=== PATIENT | female | born 1945 | race African-American/Black ===

== ENCOUNTER → 2017-01-07 | Outpatient (CLI) | payer OTHER, MEDICAID ==
[2013-08-11 16:59] VITALS: BP 152/75
[2017-01-07 10:31] LABS: BASOPHILS # (AUTO) 0.1 X10^3/uL (0.0-0.1); BASOPHILS % (AUTO) 1.2 % (0.2-1.0); EOSINOPHILS # (AUTO) 0.2 x10^3/uL (0.0-0.2); HEMATOCRIT 41.9 % (36.0-47.0); HEMOGLOBIN 14.2 g/dL (12.0-16.0); LYMPHOCYTES # (AUTO) 2.3 X10^3/uL (1.3-2.9); LYMPHOCYTES % (AUTO) 40.1 % (21.0-51.0); MEAN CORPUSCULAR HGB CONC 33.8 g/dL (33.0-35.0); MEAN CORPUSCULAR VOLUME 88.6 fL (80.0-100.0); MEAN PLATELET VOLUME 8.4 fL (7.4-11.0); MONOCYTES # (AUTO) 0.6 x10^3/uL (0.3-0.8); MONOCYTES % (AUTO) 9.7 % (0.0-13.0); NEUTROPHILS # (AUTO) 2.6 x10^3/uL (2.2-4.8); PLATELET COUNT 209 X10^3/uL (150.0-450.0); RED BLOOD COUNT 4.73 X10^6/uL (3.5-5.4); RED CELL DISTRIBUTION WIDTH 13.2 % (11.6-16.5); WHITE BLOOD COUNT 5.8 X10^3/uL (3.6-10.0)
[2017-01-07 10:40] LABS: ALANINE AMINOTRANSFERASE 24 Units/L (12-78); ALBUMIN 3.5 g/dL (3.4-5.0); ALKALINE PHOSPHATASE 98 Units/L (46-116); ASPARTATE AMINO TRANSFERASE 14 Units/L (15-37); BLOOD UREA NITROGEN 22 mg/dL (7-18); CALCIUM 8.2 mg/dL (8.5-10.1); CARBON DIOXIDE 23.4 mmol/L (21-32); CHLORIDE 109 mmol/L (98-107); CHOL/HDL RATIO 1.9 (0.0-5.0); CHOLESTEROL 111 mg/dL (0-200); COR NA(FOR HYPERGLY) 146 mmol/L (136-145); CREATININE 1.72 mg/dL (0.55-1.02); GLUCOSE 231 mg/dL (65-99); HDL CHOLESTEROL 57 mg/dL (40-60); SODIUM 143 mmol/L (136-145); TOTAL PROTEIN 7.6 g/dL (6.4-8.2); TRIGLYCERIDES 71 mg/dL (0-150); eGFR BLACK RACES 38 (>60); eGFR NON BLACK RACES 31 (>60)
[2017-01-07 10:41] LABS: CREATININE,URINE 72.06 mg/dL (29-226); MICROALBUMIN,URINE 9.4 mg/L
[2017-01-07 10:42] LABS: HEMOGLOBIN A1C 8.1 % (4.5-6.2)
== END ==
LOC: LAB 09:55
PROVIDERS: ATTEND Nurse Practitioner Family
DX: E78.4 Other hyperlipidemia (principal); I10 Essential (primary) hypertension; E11.65 Type 2 diabetes mellitus with hyperglycemia; E55.9 Vitamin D deficiency, unspecified
CPT/HCPCS: 36415; 80053; 80061; 82043; 82306; 83036; 85025

== ENCOUNTER → 2017-01-10 | Outpatient (CLI) | payer OTHER, MEDICAID ==
[2013-08-11 16:59] VITALS: BP 152/75
--- NOTE | 2017-01-11 07:55 | VAS ---
HISTORY: Lower extremity spasms Study: Bilateral lower extremity arterial Doppler and ABIs Comparison: None Technique: Multiple grayscale sonographic images were obtained. Color duplex Doppler evaluation was performed. Findings: Bilaterally flow was identified from the common femoral through the dorsalis pedis arteries. Bilater ally waveforms were triphasic or biphasic throughout. There are no velocity spikes to suggest a foca l greater than 50% stenosis. CHRISTIAN on the right 1.0. CHRISTIAN on the left 0.93. IMPRESSION: No sonographic evidence for significant atherosclerotic obstructive disease in either lower extremit y Normal ABIs bilaterally Reported By:
== END ==
LOC: RAD 13:45
PROVIDERS: ATTEND Nurse Practitioner Family
DX: E55.9 Vitamin D deficiency, unspecified (principal); M62.838 Other muscle spasm; I73.89 Other specified peripheral vascular diseases
CPT/HCPCS: 93923; 95911

== ENCOUNTER → 2017-02-25 | Outpatient (CLI) | payer OTHER, MEDICAID ==
[2013-08-11 16:59] VITALS: BP 152/75
--- NOTE | 2017-02-25 17:12 | MG ---
Examination: Bilateral screening mammogram. Clinical history: Routine screening. Technique: Digital CC and MLO views of both breasts were obtained. Computer aided detection analysis was performed and used during the interpretation. Comparison: 03/28/2010. Findings: The breasts are composed of scattered fibroglandular densities. Benign-appearing calcifications are n oted in the breasts bilaterally. No suspicious mass, area of architectural distortion or suspicious cluster of microcalcifications is noted. Impression: 1. No mammographic evidence of malignancy. BI-RADS category 2-benign findings. Recommend routine annual screening mammogram. Diagnostic CAD was utilized and reviewed. * 0 (ZERO) - ASSESSMENT INCOMPLETE; ADDITIONAL IMAGING IS NEEDED. * 0C - ASSESSMENT INCOMPLETE, NEEDS ADDITIONAL IMAGING EVALUATION AND/OR PRIOR MAMMOGRAMS FOR COMPARI SON. * 1/1 (ONE) - NEGATIVE. * 2/II (TWO) - BENIGN FINDINGS. * 3/III (THREE) - PROBABLY BENIGN FINDING; SHORT INTERVAL FOLLOW-UP SUGGESTED. * 4/IV (FOUR) - SUSPICIOUS ABNORMALITY; BIOPSY SHOULD BE CONSIDERED. * 5/V - HIGHLY SUSPICIOUS OF MALIGNANCY; BIOPSY SHOULD BE PERFORMED. * 6/ - KNOWN BIOPSY PROVEN MALIGNANCY-APPROPRIATE ACTION SHOULD BE TAKEN. A NEGATIVE X-RAY REPORT SHOULD NOT DELAY BIOPSY IF A DOMINANT OR CLINICALLY SUSPICIOUS MASS IS PRESENT; 4 TO 8 PERCENT OF CANCERS ARE NOT IDENTIFIED BY X-RAY. A NEGATIVE REPORT MAY REINFORCE THE CLINICAL IMPRESSION. ADENOSIS AND DENSE BREASTS MAY OBSCURE AN UNDERLYING NEOPLASM. Reported By:
== END ==
LOC: RAD 11:13
PROVIDERS: ATTEND Nurse Practitioner Family
DX: Z12.31 Encounter for screening mammogram for malignant neoplasm of breast (principal)
CPT/HCPCS: 77067

== ENCOUNTER → 2017-09-03 | Outpatient (CLI) | payer OTHER, MEDICAID ==
[2013-08-11 16:59] VITALS: BP 152/75
[2017-09-03 09:28] LABS: BASOPHILS # (AUTO) 0.1 X10^3/uL (0.0-0.1); BASOPHILS % (AUTO) 1.3 % (0.2-1.0); EOSINOPHILS # (AUTO) 0.3 x10^3/uL (0.0-0.2); HEMATOCRIT 43.9 % (36.0-47.0); HEMOGLOBIN 14.8 g/dL (12.0-16.0); LYMPHOCYTES # (AUTO) 2.2 X10^3/uL (1.3-2.9); LYMPHOCYTES % (AUTO) 33.8 % (21.0-51.0); MEAN CORPUSCULAR HEMOGLOBIN 30.3 pg (27.0-34.0); MEAN CORPUSCULAR HGB CONC 33.7 g/dL (33.0-35.0); MEAN CORPUSCULAR VOLUME 89.9 fL (80.0-100.0); MEAN PLATELET VOLUME 8.1 fL (7.4-11.0); MONOCYTES # (AUTO) 0.6 x10^3/uL (0.3-0.8); MONOCYTES % (AUTO) 9.8 % (0.0-13.0); NEUTROPHILS # (AUTO) 3.3 x10^3/uL (2.2-4.8); NEUTROPHILS % (AUTO) 51.1 % (42.0-75.0); PLATELET COUNT 210 X10^3/uL (150.0-450.0); RED BLOOD COUNT 4.88 X10^6/uL (3.5-5.4); RED CELL DISTRIBUTION WIDTH 13.7 % (11.6-16.5); WHITE BLOOD COUNT 6.5 X10^3/uL (3.6-10.0)
[2017-09-03 09:40] LABS: ALANINE AMINOTRANSFERASE 19 Units/L (12-78); ALBUMIN 3.9 g/dL (3.4-5.0); ALKALINE PHOSPHATASE 90 Units/L (46-116); ASPARTATE AMINO TRANSFERASE 13 Units/L (15-37); BLOOD UREA NITROGEN 15 mg/dL (7-18); CALCIUM 8.6 mg/dL (8.5-10.1); CARBON DIOXIDE 25.4 mmol/L (21-32); CHLORIDE 107 mmol/L (98-107); CHOL/HDL RATIO 2.2 (0.0-5.0); CHOLESTEROL 141 mg/dL (0-200); COR NA(FOR HYPERGLY) 144 mmol/L (136-145); CREATININE 1.45 mg/dL (0.55-1.02); HDL CHOLESTEROL 64 mg/dL (40-60); HEMOGLOBIN A1C 7.9 %; SODIUM 143 mmol/L (136-145); TOTAL PROTEIN 8.5 g/dL (6.4-8.2); TRIGLYCERIDES 61 mg/dL (0-150); eGFR BLACK RACES 46 (>60); eGFR NON BLACK RACES 38 (>60)
[2017-09-03 09:45] LABS: CREATININE,URINE 42.92 mg/dL (29-226); MICROALBUMIN,URINE 70.1 mg/L
== END ==
LOC: LAB 09:01
PROVIDERS: ATTEND Nurse Practitioner Family
DX: E78.4 Other hyperlipidemia (principal); E11.9 Type 2 diabetes mellitus without complications; E53.8 Deficiency of other specified B group vitamins; E55.9 Vitamin D deficiency, unspecified
CPT/HCPCS: 36415; 80053; 80061; 82043; 82306; 83036; 85025

== ENCOUNTER 2021-05-30 10:27 | Inpatient (IN) ==
[2021-05-30] MEDS ORDERED: NS 500 ML IV 500 ML IV ONE ×2 (10:35→12:23)
[2021-05-30 10:44] VITALS: BMI 28.3
[2021-05-30] MEDS ORDERED: HALDOL INJ IM ONE (10:45)
--- NOTE | 2021-05-30 10:45 | DR.GENAD ---
HPI Time Seen Time Seen by Provider: 05/30/21 10:34 Complaint/Symptoms Chief Complaint Doctors Comments: 75 y/o female brought in by family for evaluation. Has had mutiple strokes recently, has not been acting right since. Has had decreased PO intake, has been uncooperative with taking her meds, comb ative with the family. Family fears she is dehydrated. Pt aggressive with the nursing staff, slapping at them. Pt tried to bite MD, hit me during exam. No report of fever, cough, vomiting, diarrhea or urinary issues. Family interested in NH placement. COVID-19 Coronavirus risk:travel/contact w/high risk person: No Has patient experienced Coronavirus symptoms: No Nurses notes reviewed Nurses Notes Review: Yes Source History Provided: Family Member PMH PMH Past Medical History: Diabetes and Hypertension Past Surgical History: Yes Family History Family Medical History: Diabetes Mellitus, Cancer, [place] and Hypertension Social History Do you use any recreational Drugs:: No Travel Risk Coronavirus risk:travel/contact w/high risk person: No Has patient experienced Coronavirus symptoms: No ROS Review of Systems Constitutional: Weakness; negative Fever Eyes: negative Discharge ENTM: negative Nose Congestion Respiratoy: No Symptoms Reported Cardiovascular: No Symptoms Reported Gastrointestinal/Abdominal: No Symptoms Reported Genitourinary: No Symptoms Reported Neurological: Weakness Musculoskeletal: No Symptoms Reported Integumentary: No Symptoms Reported Hematologic/Lymphatic: No Symptoms Reported Psychiatric: Other (aggressive, combative) All Other Systems: Reviewed and Negative (ROS obtained thru family) PE Vital Signs Vitals: Pulse Rate 54 Blood Pressure [Right Arm] 184/92 Blood Pressure [Left Arm] 159/72 Blood Pressure [Left Radial 118/68 Artery] Blood Pressure 124/61 O2 Sat by Pulse Oximetry 97 General Limitations: No Limitations General Appearance: Other (somnolent, but easily arousable. + combative. Slapping when touched, yelling out.) Head Head Exam: Normal Inspection Eyes Eye exam: Normal Appearance ENT ENT Exam: Normal Exam Neck Neck Exam: Normal Inspection and Full ROM Chest Chest Inspection: Normal Inspection Respiratory Respiratory Exam: Normal Lung Sounds Bilat; negative Accessory Muscle Use and Respiratory Distress Respiratory Exam: Bilateral: Clear to Auscultation Cardiovascular Cardiovascular Exam: Regular Rate, Normal Rhythm and Normal Heart Sounds Abdominal Exam Abdominal Exam: Normal Inspection and Soft; negative Tenderness Extremities Extremities Exam: Normal Inspection, Full ROM and Other (left arm weaker) Neurologic Neurological Exam: Alert and CN II-XII Intact Psychiatric Psychiatric Exam: Agitated Skin Skin Exam: Warm and Dry MDM Differential Diagnosis Differential Diagnosis: OBS, dementia, electrolyte abnormalities, multii nfarct dementia COURSE Treatment Treatment: 75 y/o female brought in by family due to her aggressive behavior, decreased po intake. Pt has had an altered mental state since suffering recent CVAs. Concerning for possible dehydration. Will not allow RNs to take her BP, start IV. Given Haldol. 5 mg, IM to start. 1248 - RN able to start IV after Haldol, able to give IV ativan, 1 mg, with good effect. 1310 - labs show probable dehydration, with elevated potassium. Glucose elevated, given IV regular insulin, 4 U. Given IV NS bolus. Discussed with Dr Hummel, will admit, will look into NH placement. ROR Labs Reviewed Laboratory Results Reviewed?: Yes Result Diagrams: 05/30/21 12:32 05/30/21 12:32 Laboratory: WBC 7.2 X10^3/uL (3.6-10.0) 05/30/21 12:32 RBC 5.08 X10^6/uL (3.5-5.4) 05/30/21 12:32 Hgb 15.0 g/dL (12.0-16.0) 05/30/21 12:32 Hct 47.2 % (36.0-47.0) H 05/30/21 12:32 MCV 92.9 fL (80.0-100.0) 05/30/21 12:32 MCH 29.6 pg (27.0-34.0) 05/30/21 12:32 MCHC 31.8 g/dL (33.0-35.0) L 05/30/21 12:32 RDW 13.9 % (11.6-16.5) 05/30/21 12:32 Plt Count 223 X10^3/uL (150.0-450.0) 05/30/21 12:32 MPV 8.6 fL (7.4-11.0) 05/30/21 12:32 Neut % (Auto) 75.8 % (42.0-75.0) H 05/30/21 12:32 Lymph % (Auto) 13.9 % (21.0-51.0) L 05/30/21 12:32 [place] % (Auto) 7.4 % (0.0-13.0) 05/30/21 12:32 Eos % (Auto) 1.8 % (0.9-2.9) 05/30/21 12:32 Baso % (Auto) 1.1 % (0.2-1.0) H 05/30/21 12:32 Neut # (Auto) 5.4 x10^3/uL (2.2-4.8) H 05/30/21 12:32 Lymph # (Auto) 1.0 X10^3/uL (1.3-2.9) L 05/30/21 12:32 [place] # (Auto) 0.5 x10^3/uL (0.3-0.8) 05/30/21 12:32 Eos # (Auto) 0.1 x10^3/uL (0.0-0.2) 05/30/21 12:32 Baso # (Auto) 0.1 X10^3/uL (0.0-0.1) 05/30/21 12:32 Absolute Nucleated RBC 0.1 /100WBC 05/30/21 12:32 Sodium 147 mmol/L (136-145) H 05/30/21 12:32 Corrected Sodium 156 mmol/L (136-145) H 05/30/21 12:32 Potassium 6.1 mmol/L (3.5-5.1) H* 05/30/21 12:32 Chloride 111 mmol/L (98-107) H 05/30/21 12:32 Carbon Dioxide 25.6 mmol/L (21-32) 05/30/21 12:32 BUN 34 mg/dL (7-18) H 05/30/21 12:32 Creatinine 2.85 mg/dL (0.55-1.02) H 05/30/21 12:32 Est GFR (MDRD) Af Amer 21 (>60) L 05/30/21 12:32 Est GFR (MDRD) Non-Af 17 (>60) L 05/30/21 12:32 Glucose 460 mg/dL (65-99) H 05/30/21 12:32 Calcium 9.5 mg/dL (8.5-10.1) 05/30/21 12:32 Corrected Calcium TNP 05/30/21 12:32 Total Bilirubin 0.60 mg/dL (0.2-1.0) 05/30/21 12:32 AST 14 Units/L (15-37) L 05/30/21 12:32 ALT 16 Units/L (12-78) 05/30/21 12:32 Alkaline Phosphatase 115 Units/L (46-116) 05/30/21 12:32 Creatine Kinase 155 Units/L (26-192) 05/30/21 12:32 CK-MB (CK-2) 1.2 ng/mL (0-4.0) 05/30/21 12:32 CK/CKMB % Calc 0.8 % (<4) 05/30/21 12:32 Troponin I 0.02 ng/mL (0-1.5) 05/30/21 12:32 Total Protein 7.9 g/dL (6.4-8.2) 05/30/21 12:32 Albumin 3.6 g/dL (3.4-5.0) 05/30/21 12:32 Globulin 4.3 g/dL (2.5-4.5) 05/30/21 12:32 Albumin/Globulin Ratio 0.8 Ratio (1.1-2.1) L 05/30/21 12:32 Lipase 120 Units/L (73-393) 05/30/21 12:32 Specimen Type Random urine 05/30/21 10:47 Urine Color Yellow (YELLOW) 05/30/21 10:47 Urine Appearance Clear (CLEAR) 05/30/21 10:47 Urine pH 5.0 (5.0 - 8.0) 05/30/21 10:47 Ur Specific [place] 1.015 (1.000-1.030) 05/30/21 10:47 Urine Protein 1+ (NEGATIVE) 05/30/21 10:47 Urine Glucose (UA) 4+ (NEGATIVE) 05/30/21 10:47 Urine Ketones Negative (NEGATIVE) 05/30/21 10:47 Urine Occult Blood Negative (NEGATIVE) 05/30/21 10:47 Urine Nitrite Negative (NEGATIVE) 05/30/21 10:47 Urine Bilirubin Negative (NEGATIVE) 05/30/21 10:47 Urine Urobilinogen Normal (NORMAL) 05/30/21 10:47 Ur Leukocyte Esterase 1+ (NEGATIVE) 05/30/21 10:47 Urine RBC 0-2 /HPF (0-3) 05/30/21 10:47 Urine WBC 3-5 /HPF (0-5) 05/30/21 10:47 Ur Squamous Epith Cells Many /HPF (NEGATIVE) 05/30/21 10:47 Amorphous Sediment 2+ /HPF (NEGATIVE) 05/30/21 10:47 Urine Bacteria Negative /HPF (NEGATIVE) 05/30/21 10:47 Ur Culture Indicated? No/not indicated 05/30/21 10:47 XRAY XRAY Interpreted by: Self X-ray Results: CXR - without acute abnormalities Opioid Opioid Risk Tool Age (Tim box if 16-45): No History of Preadolescent Sexual Abuse: No Total: 0 Total Score Risk Category: Low Risk Copyright: Calvin HURTADO predicting aberrant behaviors Diagnosis Discharge Problem: Acute hyperkalemia, Volume depletion Altered mental status Qualifiers: Altered mental status type: unspecified Qualified Code(s): R41.82 - Altered mental status, unspecified
[2021-05-30] MEDS ORDERED: ATIVAN INJ 2 MG VIAL IVP ONE (10:46)
[2021-05-30] MEDS ORDERED: HALDOL INJ ONE (10:50)
[2021-05-30 10:54] LABS: BILIRUBIN,URINE NEGATIVE (NEGATIVE); BLOOD/HEMOGLOBIN,URINE NEGATIVE (NEGATIVE); GLUCOSE, URINE 4+ (NEGATIVE); KETONES,URINE NEGATIVE (NEGATIVE); LEUKOCYTE ESTERASE ,URINE 1+ (NEGATIVE); NITRITES,URINE NEGATIVE (NEGATIVE); PROTEIN,URINE 1+ (NEGATIVE); UROBILINOGEN,URINE NORMAL (NORMAL)
[2021-05-30 10:55] LABS: APPEARANCE,URINE CLEAR (CLEAR); COLOR,URINE YELLOW (YELLOW)
[2021-05-30 11:04] LABS: AMORPHOUS SEDIMENT,UR 2+ /HPF (NEGATIVE); BACTERIA,URINE NEGATIVE /HPF (NEGATIVE); RBC,URINE 0-2 /HPF (0-3); SQUAMOUS EPITHELIAL CELL,UR MANY /HPF (NEGATIVE)
[2021-05-30] MEDS ORDERED: ATIVAN INJ 2 MG VIAL ONE (12:24)
[2021-05-30 12:41] LABS: BASOPHILS # (AUTO) 0.1 X10^3/uL (0.0-0.1); BASOPHILS % (AUTO) 1.1 % (0.2-1.0); EOSINOPHILS # (AUTO) 0.1 x10^3/uL (0.0-0.2); EOSINOPHILS % (AUTO) 1.8 % (0.9-2.9); HEMATOCRIT 47.2 % (36.0-47.0); LYMPHOCYTES % (AUTO) 13.9 % (21.0-51.0); MEAN CORPUSCULAR HEMOGLOBIN 29.6 pg (27.0-34.0); MEAN CORPUSCULAR HGB CONC 31.8 g/dL (33.0-35.0); MEAN CORPUSCULAR VOLUME 92.9 fL (80.0-100.0); MEAN PLATELET VOLUME 8.6 fL (7.4-11.0); MONOCYTES # (AUTO) 0.5 x10^3/uL (0.3-0.8); MONOCYTES % (AUTO) 7.4 % (0.0-13.0); NEUTROPHILS # (AUTO) 5.4 x10^3/uL (2.2-4.8); NEUTROPHILS % (AUTO) 75.8 % (42.0-75.0); PLATELET COUNT 223 X10^3/uL (150.0-450.0); RED BLOOD COUNT 5.08 X10^6/uL (3.5-5.4); RED CELL DISTRIBUTION WIDTH 13.9 % (11.6-16.5); WHITE BLOOD COUNT 7.2 X10^3/uL (3.6-10.0)
[2021-05-30 13:03] LABS: ALANINE AMINOTRANSFERASE 16 Units/L (12-78); ALBUMIN 3.6 g/dL (3.4-5.0); ALKALINE PHOSPHATASE 115 Units/L (46-116); ASPARTATE AMINO TRANSFERASE 14 Units/L (15-37); BLOOD UREA NITROGEN 34 mg/dL (7-18); CALCIUM 9.5 mg/dL (8.5-10.1); CARBON DIOXIDE 25.6 mmol/L (21-32); CHLORIDE 111 mmol/L (98-107); CKMB % 0.8 % (<4); COR NA(FOR HYPERGLY) 156 mmol/L (136-145); CREATINE KINASE 155 Units/L (26-192); CREATINE KINASE MB 1.2 ng/mL (0-4.0); CREATININE 2.85 mg/dL (0.55-1.02); LIPASE 120 Units/L (73-393); SODIUM 147 mmol/L (136-145); TOTAL PROTEIN 7.9 g/dL (6.4-8.2); TROPONIN I 0.02 ng/mL (0-1.5); eGFR NON BLACK RACES 17 (>60)
[2021-05-30] MEDS ORDERED: NovoLIN R (or HumuLIN R) IV ONE (13:09)
[2021-05-30] MEDS ORDERED: NovoLIN R (or HumuLIN R) ONE (13:13)
[2021-05-30] MEDS ORDERED: ULTRAM PO PRN (14:24)
--- NOTE | 2021-05-30 16:16 | RAD ---
HISTORYAMSSTUDYCHEST, 1 VIEWCOMPARISONJune 2019TECHNIQUEChest x-ray single frontal viewFINDINGSThe patient is rotated on the exam. The lungs are equally expanded and clear. Cardiac silhouette is mildly prominent. Accentuation of the thoracic aorta is likely magnified by rotation on the film. The pleural spaces are clear. There is no evidence of free air or pneumothorax. No acute osseous abnormalities of the chest are identified.IMPRESSIONNo acute radiographic abnormalities of the chestElectronically signed by: MANSI CHOW (May 30, 2021 16:15:16)
[2021-05-30] MEDS: NS 1,000 ML IV 1,000 ML IV SCH ×2 (18:26→21:23)
[2021-05-30] MEDS: SNACK - Diabetic Appropriate PO SCH (20:15)
[2021-05-30] MEDS: NORVASC TAB 10 MG PO SCH (20:30)
[2021-05-30] MEDS: ATARAX TAB 25 MG PO SCH (20:30)
[2021-05-30] MEDS: LIPITOR TAB 20 MG PO SCH (20:30)
[2021-05-30] MEDS: NovoLIN R (or HumuLIN R) SUBCUT PRN (21:23)
[2021-05-31] MEDS ORDERED: ATIVAN INJ 2 MG VIAL IVP ONE (03:17)
[2021-05-31] MEDS ORDERED: ATIVAN INJ 2 MG VIAL ONE (03:18)
[2021-05-31] MEDS: NS 1,000 ML IV 1,000 ML IV SCH (05:50)
[2021-05-31] MEDS: NovoLIN R (or HumuLIN R) SUBCUT PRN (05:53)
[2021-05-31 06:22] LABS: BASOPHILS # (AUTO) 0.1 X10^3/uL (0.0-0.1); EOSINOPHILS # (AUTO) 0.2 x10^3/uL (0.0-0.2); EOSINOPHILS % (AUTO) 2.4 % (0.9-2.9); HEMATOCRIT 46.1 % (36.0-47.0); HEMOGLOBIN 14.9 g/dL (12.0-16.0); LYMPHOCYTES # (AUTO) 1.3 X10^3/uL (1.3-2.9); LYMPHOCYTES % (AUTO) 16.2 % (21.0-51.0); MEAN CORPUSCULAR HEMOGLOBIN 29.9 pg (27.0-34.0); MEAN CORPUSCULAR HGB CONC 32.3 g/dL (33.0-35.0); MEAN CORPUSCULAR VOLUME 92.6 fL (80.0-100.0); MEAN PLATELET VOLUME 9.2 fL (7.4-11.0); MONOCYTES # (AUTO) 0.7 x10^3/uL (0.3-0.8); MONOCYTES % (AUTO) 8.6 % (0.0-13.0); NEUTROPHILS # (AUTO) 5.8 x10^3/uL (2.2-4.8); NEUTROPHILS % (AUTO) 71.8 % (42.0-75.0); PLATELET COUNT 184 X10^3/uL (150.0-450.0); RED BLOOD COUNT 4.98 X10^6/uL (3.5-5.4); WHITE BLOOD COUNT 8.1 X10^3/uL (3.6-10.0)
[2021-05-31 06:53] LABS: ALBUMIN 3.2 g/dL (3.4-5.0); CALCIUM 9.2 mg/dL (8.5-10.1); CARBON DIOXIDE 19.8 mmol/L (21-32); COR CA(FOR HYPOALB) 9.8 mg/dL (8.5-10.1); CREATININE 2.43 mg/dL (0.55-1.02); TOTAL PROTEIN 7.3 g/dL (6.4-8.2)
[2021-05-31] MEDS: ATIVAN INJ 2 MG VIAL IVP PRN ×2 (08:57→21:58)
[2021-05-31] MEDS: LOVENOX INJ 30 MG SYR SC SCH (10:00)
[2021-05-31] MEDS: NORVASC TAB 10 MG PO SCH ×2 (12:25→21:56)
[2021-05-31] MEDS: ZEBETA TAB 5 MG PO SCH (12:25)
[2021-05-31] MEDS: MEMANTINE DONEPEZIL PO SCH (12:30)
[2021-05-31] MEDS: [UNRECOGNIZED DRUG - OTHER] PO SCH (12:30)
[2021-05-31] MEDS: NS 1/2 1,000 ML IV 1,000 ML IV SCH ×2 (12:49→17:52)
[2021-05-31] MEDS ORDERED: NS 1/2 1,000 ML IV 1,000 ML IV ONE (17:49)
[2021-05-31] MEDS ORDERED: APRESOLINE INJ 20 MG VIAL IVP PRN (19:45)
--- NOTE | 2021-05-31 19:53 | DR.H&P ---
H&P History & Physical for Day of: H&P Date: 05/31/21 Chief Complaint Chief Complaint: Altered mental status Dehydration Allergies Allergies Allergy/AdvReac Type Severity Reaction Status Date / Time No Known Drug Allergies Allergy Verified 05/30/21 10:41 [NKDA] History of Present Illness History of Present Illness: Pt is a 75 year old female past medical history of CVA, COPD, HTN, DMT2, and Dementia presenting with altered mental status, weakness, and dehydration. Per family, since her previous stroke she has been having a progressive decline in mental status and ability to perform activities of daily living. She has loss of appetite and has poor nutrition along with refusal to take her daily medications for her chronic diseases. Labs/imaging: Wbc 8.1, Hgb 14.9, Plt 184, Na 150, K 5.8, Creatinine 2.85>2.43, Glucose 280, CXR: no acute cardiopulmonary disease, UA negative. Patient with altered mental status was initially confused on admission. She was given IM haldol and IV ativan. She responded well to ativan prn. Will start on IVF 1/ NS@75 ml/h, restart home medications. Order nutrition consult. Discussed with case management after discussion with daughter and family, possible placement into a SNF. Concern at this time is nutrition, will have to consider PEG if patient continues to refuse oral intake of solid and liquid foods, as well as her medications. Will continue to monitor and follow up labs in the morning. Past Medical History Past Medical History: COPD, CVA, Dementia, Diabetes and Hypertension Past Surgical History Surgical History: Hysterectomy Family History Family Medical History: Cancer, [place] and Hypertension Social History Does patient currently use any type of tobacco product: No Have you used tobacco products in the last 12 months: No Type of Tobacco Use: None Does any household member use tobacco: No Alcohol Use: None Drug Use: None Medications Home Medications: No Known Drug Allergies [NKDA] Allergy (Verified 05/30/21 10:41) CONTINUE taking the following medications atorvastatin 20 mg PO HS 05/30/21 [History] bisoprolol fumarate 5 mg PO DAILY 05/30/21 [History] clonidine 0.3 mg TRANSDERMAL WEEKLY 05/30/21 [History] hydralazine 25 mg PO BID 05/30/21 [History] hydroxyzine HCl 25 mg PO HS 05/30/21 [History] insulin lispro protamin-lispro [Humalog Mix 75-25 KwikPen] 30 unit SUBCUT BID 05/30/21 [History] memantine-donepezil [Namzaric] 1 cap PO DAILY 05/30/21 [History] montelukast 10 mg PO HS 05/30/21 [History] Labs Result Diagrams: 05/31/21 05:22 05/31/21 05:22 Labs: Laboratory WBC 8.1 X10^3/uL (3.6-10.0) 05/31/21 05:22 RBC 4.98 X10^6/uL (3.5-5.4) 05/31/21 05:22 Hgb 14.9 g/dL (12.0-16.0) 05/31/21 05:22 Hct 46.1 % (36.0-47.0) 05/31/21 05:22 MCV 92.6 fL (80.0-100.0) 05/31/21 05:22 MCH 29.9 pg (27.0-34.0) 05/31/21 05:22 MCHC 32.3 g/dL (33.0-35.0) L 05/31/21 05:22 RDW 14.0 % (11.6-16.5) 05/31/21 05:22 Plt Count 184 X10^3/uL (150.0-450.0) 05/31/21 05:22 MPV 9.2 fL (7.4-11.0) 05/31/21 05:22 Neut % (Auto) 71.8 % (42.0-75.0) 05/31/21 05:22 Lymph % (Auto) 16.2 % (21.0-51.0) L 05/31/21 05:22 [place] % (Auto) 8.6 % (0.0-13.0) 05/31/21 05:22 Eos % (Auto) 2.4 % (0.9-2.9) 05/31/21 05:22 Baso % (Auto) 1.0 % (0.2-1.0) 05/31/21 05:22 Neut # (Auto) 5.8 x10^3/uL (2.2-4.8) H 05/31/21 05:22 Lymph # (Auto) 1.3 X10^3/uL (1.3-2.9) 05/31/21 05:22 [place] # (Auto) 0.7 x10^3/uL (0.3-0.8) 05/31/21 05:22 Eos # (Auto) 0.2 x10^3/uL (0.0-0.2) 05/31/21 05:22 Baso # (Auto) 0.1 X10^3/uL (0.0-0.1) 05/31/21 05:22 Absolute Nucleated RBC 0.1 /100WBC 05/31/21 05:22 Sodium 150 mmol/L (136-145) H* 05/31/21 05:22 Corrected Sodium 154 mmol/L (136-145) H 05/31/21 05:22 Potassium 5.8 mmol/L (3.5-5.1) H 05/31/21 05:22 Chloride 117 mmol/L (98-107) H* 05/31/21 05:22 Carbon Dioxide 19.8 mmol/L (21-32) L 05/31/21 05:22 BUN 33 mg/dL (7-18) H 05/31/21 05:22 Creatinine 2.43 mg/dL (0.55-1.02) H 05/31/21 05:22 Est GFR (MDRD) Af Amer 25 (>60) L 05/31/21 05:22 Est GFR (MDRD) Non-Af 21 (>60) L 05/31/21 05:22 Glucose 280 mg/dL (65-99) H 05/31/21 05:22 POC Glucose (mg/dL) 269 mg/dL (65-99) H 05/31/21 05:45 Calcium 9.2 mg/dL (8.5-10.1) 05/31/21 05:22 Corrected Calcium 9.8 mg/dL (8.5-10.1) 05/31/21 05:22 Total Bilirubin 0.70 mg/dL (0.2-1.0) 05/31/21 05:22 AST 22 Units/L (15-37) 05/31/21 05:22 ALT 13 Units/L (12-78) 05/31/21 05:22 Alkaline Phosphatase 108 Units/L (46-116) 05/31/21 05:22 Creatine Kinase 155 Units/L (26-192) 05/30/21 12:32 CK-MB (CK-2) 1.2 ng/mL (0-4.0) 05/30/21 12:32 CK/CKMB % Calc 0.8 % (<4) 05/30/21 12:32 Troponin I 0.02 ng/mL (0-1.5) 05/30/21 12:32 Total Protein 7.3 g/dL (6.4-8.2) 05/31/21 05:22 Albumin 3.2 g/dL (3.4-5.0) L 05/31/21 05:22 Globulin 4.1 g/dL (2.5-4.5) 05/31/21 05:22 Albumin/Globulin Ratio 0.8 Ratio (1.1-2.1) L 05/31/21 05:22 Lipase 120 Units/L (73-393) 05/30/21 12:32 Specimen Type Random urine 05/30/21 10:47 Urine Color Yellow (YELLOW) 05/30/21 10:47 Urine Appearance Clear (CLEAR) 05/30/21 10:47 Urine pH 5.0 (5.0 - 8.0) 05/30/21 10:47 Ur Specific [place] 1.015 (1.000-1.030) 05/30/21 10:47 Urine Protein 1+ (NEGATIVE) 05/30/21 10:47 Urine Glucose (UA) 4+ (NEGATIVE) 05/30/21 10:47 Urine Ketones Negative (NEGATIVE) 05/30/21 10:47 Urine Occult Blood Negative (NEGATIVE) 05/30/21 10:47 Urine Nitrite Negative (NEGATIVE) 05/30/21 10:47 Urine Bilirubin Negative (NEGATIVE) 05/30/21 10:47 Urine Urobilinogen Normal (NORMAL) 05/30/21 10:47 Ur Leukocyte Esterase 1+ (NEGATIVE) 05/30/21 10:47 Urine RBC 0-2 /HPF (0-3) 05/30/21 10:47 Urine WBC 3-5 /HPF (0-5) 05/30/21 10:47 Ur Squamous Epith Cells Many /HPF (NEGATIVE) 05/30/21 10:47 Amorphous Sediment 2+ /HPF (NEGATIVE) 05/30/21 10:47 Urine Bacteria Negative /HPF (NEGATIVE) 05/30/21 10:47 Ur Culture Indicated? No/not indicated 05/30/21 10:47 SARS CoV-2 RNA Rapid ELAINA Negative (NEGATIVE) 05/30/21 13:09 Review of Systems Constitutional: Weakness; denies Fever and Chills Eyes: No Symptoms Reported ENT: No Symptoms Reported Respiratory: No Symptoms Reported Cardiovascular: No Symptoms Reported Gastrointestinal: No Symptoms Reported Genitourinary: No Symptoms Reported Musculoskeletal: No Symptoms Reported Skin: No Symptoms Reported Neurological: Weakness and Confusion Physical Exam Vital Signs: Temperature 98.4 F Pulse Rate [Right Brachial] 76 Pulse Rate 63 Respiratory Rate 20 Blood Pressure [Right Arm] 196/81 Blood Pressure [Left Arm] 159/72 Blood Pressure [Left Radial 118/68 Artery] Blood Pressure 137/64 O2 Sat by Pulse Oximetry 95 Oriented: Unable to test (AMS) Eyes: Normal Ear: Normal Nose: Normal Throat: Normal Respiratory: Clear Throughout Cardiovascular: Normal : Normal Auscultation: Bowel Sounds: Normal Palpation: Normal Tenderness: Normal Skin: Normal Musculoskeletal: Normal Psychiatric: Other (AMS) Speech Pattern: Unclear Assessment/Plan (1) Altered mental status: Qualifiers: Altered mental status type: unspecified Qualified Code(s): R41.82 - Altered mental status, unspecified Status: Acute (2) Volume depletion: Status: Acute (3) Acute hyperkalemia: Status: Acute (4) CKD (chronic kidney disease) stage 3, GFR 30-59 ml/min: Qualifiers: Chronic kidney disease stage 3 subtype: stage 3b (GFR 30-44) Qualified Code(s): N18.32 - Chronic kidney disease, stage 3b Status: Acute Review H&P Reviewed: Yes Patient was examined?: Yes
[2021-05-31] MEDS: ATARAX TAB 25 MG PO SCH (21:56)
[2021-05-31] MEDS: LIPITOR TAB 20 MG PO SCH (21:56)
[2021-05-31] MEDS: SNACK - Diabetic Appropriate PO SCH (21:56)
[2021-06-01] MEDS ORDERED: NS 1/2 1,000 ML IV 1,000 ML IV ONE (03:50)
[2021-06-01] MEDS: NS 1/2 1,000 ML IV 1,000 ML IV SCH ×2 (04:55→13:07)
[2021-06-01] MEDS: ATIVAN INJ 2 MG VIAL IVP PRN ×3 (05:23→18:45)
[2021-06-01] MEDS: NovoLIN R (or HumuLIN R) SUBCUT PRN ×2 (05:55→17:24)
[2021-06-01 06:13] LABS: ALANINE AMINOTRANSFERASE 17 Units/L (12-78); ALBUMIN 3.5 g/dL (3.4-5.0); ALKALINE PHOSPHATASE 124 Units/L (46-116); ASPARTATE AMINO TRANSFERASE 24 Units/L (15-37); BLOOD UREA NITROGEN 25 mg/dL (7-18); CALCIUM 9.3 mg/dL (8.5-10.1); CARBON DIOXIDE 20.2 mmol/L (21-32); CHLORIDE 114 mmol/L (98-107); COR NA(FOR HYPERGLY) 152 mmol/L (136-145); CREATININE 2.07 mg/dL (0.55-1.02); SODIUM 148 mmol/L (136-145); TOTAL PROTEIN 7.9 g/dL (6.4-8.2); eGFR NON BLACK RACES 25 (>60)
[2021-06-01 06:15] LABS: BASOPHILS # (AUTO) 0.1 X10^3/uL (0.0-0.1); BASOPHILS % (AUTO) 1.1 % (0.2-1.0); EOSINOPHILS # (AUTO) 0.2 x10^3/uL (0.0-0.2); HEMATOCRIT 46.4 % (36.0-47.0); HEMOGLOBIN 15.2 g/dL (12.0-16.0); LYMPHOCYTES # (AUTO) 1.9 X10^3/uL (1.3-2.9); LYMPHOCYTES % (AUTO) 24.1 % (21.0-51.0); MEAN CORPUSCULAR HEMOGLOBIN 30.1 pg (27.0-34.0); MEAN CORPUSCULAR HGB CONC 32.8 g/dL (33.0-35.0); MEAN CORPUSCULAR VOLUME 91.5 fL (80.0-100.0); MEAN PLATELET VOLUME 9.2 fL (7.4-11.0); MONOCYTES # (AUTO) 0.7 x10^3/uL (0.3-0.8); MONOCYTES % (AUTO) 8.6 % (0.0-13.0); NEUTROPHILS % (AUTO) 63.2 % (42.0-75.0); PLATELET COUNT 190 X10^3/uL (150.0-450.0); RED BLOOD COUNT 5.07 X10^6/uL (3.5-5.4); RED CELL DISTRIBUTION WIDTH 13.6 % (11.6-16.5)
[2021-06-01] MEDS: [UNRECOGNIZED DRUG - OTHER] PO SCH (09:39)
[2021-06-01] MEDS: MEMANTINE DONEPEZIL PO SCH (09:39)
[2021-06-01] MEDS: NORVASC TAB 10 MG PO SCH (09:40)
[2021-06-01] MEDS: LOVENOX INJ 30 MG SYR SC SCH (09:40)
[2021-06-01] MEDS: ZEBETA TAB 5 MG PO SCH (09:41)
[2021-06-01 13:04] VITALS: BP 158/98
--- NOTE | 2021-06-01 14:33 | PCM.PROG ---
Progress Note Progress Note for Day of Date of Exam: 06/01/21 Subjective Subjective: Pt is a 75 year old female past medical history of CVA, COPD, HTN, DMT2, and Dementia presenting with altered mental status, weakness, and dehydration. Per family, since her previous stroke she has been having a progressive decline in mental status and ability to perform activities of daily living. She has loss of appetite and has poor nutrition along with refusal to take her daily medications for her chronic diseases. Labs/imaging: Wbc 8.1, Hgb 14.9, Plt 184, Na 150, K 5.8, Creatinine 2.85>2.43, Glucose 280, CXR: no acute cardiopulmonary disease, UA negative. Patient with altered mental status was initially confused on admission. She was given IM haldol and IV ativan. She responded well to ativan prn. Will start on IVF 1/2 NS@75 ml/h, restart home medications. Order nutrition consult. Discussed with case management after discussion with daughter and family, possible placement into a SNF. Concern at this time is nutrition, will have to consider PEG if patient continues to refuse oral intake of solid and liquid foods, as well as her medications. Will continue to monitor and follow up labs in the morning. Past Medical Family Social History Allergies: Allergies No Known Drug Allergies [NKDA] Allergy (Verified 05/30/21 10:41) Vital Signs and I&O's Vital Signs: Temperature 97.7 F Pulse Rate [Right Brachial] 65 Pulse Rate 63 Respiratory Rate 23 Blood Pressure [Right Arm] 158/98 Blood Pressure [Left Arm] 159/72 Blood Pressure [Left Radial 118/68 Artery] Blood Pressure 137/64 O2 Sat by Pulse Oximetry 96 Intake and Output: Intake & Output 05/29/21 05/30/21 05/31/21 06/01/21 23:59 23:59 23:59 23:59 Intake Total 250 / 250 1045 / 1045 1300 / 1300 Balance 250 / 250 1045 / 1045 1300 / 1300 Physical Exam Oriented: Unable to test (AMS) Eyes: Normal Ear: Normal Nose: Normal Throat: Normal Cardiovascular: Normal : Normal Auscultation: Bowel Sounds: Normal Tenderness: Normal Skin: Normal Musculoskeletal: Normal Psychiatric: Other (AMS) Speech Pattern: Inappropriate Laboratory and Diagnostics Result Diagrams: 06/01/21 05:22 06/01/21 05:22 Labs: Laboratory WBC 8.0 X10^3/uL (3.6-10.0) 06/01/21 05:22 RBC 5.07 X10^6/uL (3.5-5.4) 06/01/21 05:22 Hgb 15.2 g/dL (12.0-16.0) 06/01/21 05:22 Hct 46.4 % (36.0-47.0) 06/01/21 05:22 MCV 91.5 fL (80.0-100.0) 06/01/21 05:22 MCH 30.1 pg (27.0-34.0) 06/01/21 05:22 MCHC 32.8 g/dL (33.0-35.0) L 06/01/21 05:22 RDW 13.6 % (11.6-16.5) 06/01/21 05:22 Plt Count 190 X10^3/uL (150.0-450.0) 06/01/21 05:22 MPV 9.2 fL (7.4-11.0) 06/01/21 05:22 Neut % (Auto) 63.2 % (42.0-75.0) 06/01/21 05:22 Lymph % (Auto) 24.1 % (21.0-51.0) 06/01/21 05:22 [place] % (Auto) 8.6 % (0.0-13.0) 06/01/21 05:22 Eos % (Auto) 3.0 % (0.9-2.9) H 06/01/21 05:22 Baso % (Auto) 1.1 % (0.2-1.0) H 06/01/21 05:22 Neut # (Auto) 5.0 x10^3/uL (2.2-4.8) H 06/01/21 05:22 Lymph # (Auto) 1.9 X10^3/uL (1.3-2.9) 06/01/21 05:22 [place] # (Auto) 0.7 x10^3/uL (0.3-0.8) 06/01/21 05:22 Eos # (Auto) 0.2 x10^3/uL (0.0-0.2) 06/01/21 05:22 Baso # (Auto) 0.1 X10^3/uL (0.0-0.1) 06/01/21 05:22 Absolute Nucleated RBC 0.1 /100WBC 06/01/21 05:22 Sodium 148 mmol/L (136-145) H 06/01/21 05:22 Corrected Sodium 152 mmol/L (136-145) H 06/01/21 05:22 Potassium 4.6 mmol/L (3.5-5.1) 06/01/21 05:22 Chloride 114 mmol/L (98-107) H 06/01/21 05:22 Carbon Dioxide 20.2 mmol/L (21-32) L 06/01/21 05:22 BUN 25 mg/dL (7-18) H 06/01/21 05:22 Creatinine 2.07 mg/dL (0.55-1.02) H 06/01/21 05:22 Est GFR (MDRD) Af Amer 30 (>60) L 06/01/21 05:22 Est GFR (MDRD) Non-Af 25 (>60) L 06/01/21 05:22 Glucose 269 mg/dL (65-99) H 06/01/21 05:22 POC Glucose (mg/dL) 211 mg/dL (65-99) H 06/01/21 12:57 Calcium 9.3 mg/dL (8.5-10.1) 06/01/21 05:22 Corrected Calcium TNP 06/01/21 05:22 Total Bilirubin 0.70 mg/dL (0.2-1.0) 06/01/21 05:22 AST 24 Units/L (15-37) 06/01/21 05:22 ALT 17 Units/L (12-78) 06/01/21 05:22 Alkaline Phosphatase 124 Units/L (46-116) H 06/01/21 05:22 Creatine Kinase 155 Units/L (26-192) 05/30/21 12:32 CK-MB (CK-2) 1.2 ng/mL (0-4.0) 05/30/21 12:32 CK/CKMB % Calc 0.8 % (<4) 05/30/21 12:32 Troponin I 0.02 ng/mL (0-1.5) 05/30/21 12:32 Total Protein 7.9 g/dL (6.4-8.2) 06/01/21 05:22 Albumin 3.5 g/dL (3.4-5.0) 06/01/21 05:22 Globulin 4.4 g/dL (2.5-4.5) 06/01/21 05:22 Albumin/Globulin Ratio 0.8 Ratio (1.1-2.1) L 06/01/21 05:22 Lipase 120 Units/L (73-393) 05/30/21 12:32 Specimen Type Random urine 05/30/21 10:47 Urine Color Yellow (YELLOW) 05/30/21 10:47 Urine Appearance Clear (CLEAR) 05/30/21 10:47 Urine pH 5.0 (5.0 - 8.0) 05/30/21 10:47 Ur Specific [place] 1.015 (1.000-1.030) 05/30/21 10:47 Urine Protein 1+ (NEGATIVE) 05/30/21 10:47 Urine Glucose (UA) 4+ (NEGATIVE) 05/30/21 10:47 Urine Ketones Negative (NEGATIVE) 05/30/21 10:47 Urine Occult Blood Negative (NEGATIVE) 05/30/21 10:47 Urine Nitrite Negative (NEGATIVE) 05/30/21 10:47 Urine Bilirubin Negative (NEGATIVE) 05/30/21 10:47 Urine Urobilinogen Normal (NORMAL) 05/30/21 10:47 Ur Leukocyte Esterase 1+ (NEGATIVE) 05/30/21 10:47 Urine RBC 0-2 /HPF (0-3) 05/30/21 10:47 Urine WBC 3-5 /HPF (0-5) 05/30/21 10:47 Ur Squamous Epith Cells Many /HPF (NEGATIVE) 05/30/21 10:47 Amorphous Sediment 2+ /HPF (NEGATIVE) 05/30/21 10:47 Urine Bacteria Negative /HPF (NEGATIVE) 05/30/21 10:47 Ur Culture Indicated? No/not indicated 05/30/21 10:47 SARS CoV-2 RNA Rapid ELAINA Negative (NEGATIVE) 05/30/21 13:09 Plan (1) Altered mental status: Status: Acute Qualifiers: Altered mental status type: unspecified Qualified Code(s): R41.82 - Altered mental status, unspecified (2) Volume depletion: Status: Acute (3) Acute hyperkalemia: Status: Acute (4) CKD (chronic kidney disease) stage 3, GFR 30-59 ml/min: Status: Acute Qualifiers: Chronic kidney disease stage 3 subtype: stage 3b (GFR 30-44) Qualified Code(s): N18.32 - Chronic kidney disease, stage 3b
[2021-06-01] MEDS ORDERED: NORVASC TAB 5 MG PO SCH (21:00)
--- OUTSIDE RECORDS SUMMARY | 2021-06-02 08:03 | XMS | Continuity of Care Document ---
:1945 Author Name Client Experience Specialist Address Unavailable Unavailable , Care Team Providers Name Role Phone John GLUE REEL OPERATOR, C Unavailable John GLUE REEL OPERATOR, C Unavailable Safille, F Unavailable Rex Unavailable Unavailable Oakley Unavailable Unavailable Hyatt Unavailable Unavailable Mock Unavailable Unavailable Hoagland Unavailable Unavailable Unavailable Unavailable Problems Name Dates Details Allergic rhinitis with postnasal drip (J30.9, 477.9) Status: Active AV block, 1st degree (I44.0, 426.11) Com ments: PHX bradycardia when on Atenolol Status: Active Bradycardia (R00.1, 427.89) Comments: Mo nitor b/p and heart rate and rhythm/ if heart rate is less than 50 she will need to decrease Beta stephen & will need cardiac eval for need for possible pacemaker.Requires multiple meds for b/p c ontrol with bradycar tere as possible side effect of meds. 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 Gonzales for quite some time. 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 Status: Active Diabetic neuropathy, painful (E11.40, 250.60) Status: Active Difficulty swallowing liquids (R13.10, 787.20) Comments: Has no problem with solid food but seems to strangle and cough when she drinks liquids. Status: Active Dysuria (R30.0, 788.1) Status: Active Encounter for monitoring opioid maintenance therapy (Z51.81, V58.83) Status: Active Environmental and seasonal allergies (J30.89, 477.8) Status: Active Flu vaccine need (Z23, V04.81) Comments: Pt is to RTO for Flu vaccine as soon as available. Status: Active Healthcare maintenance (Z00.00, V70.0) S tatus: Active Hernia, inguinal (K40.90, 550.90) Status : Active History of vitamin B deficiency (Z86.39, V12.1) Status: Active Hospital discharge follow-up (Z09, V67.59) Comments: [facility] pt presented with weakness/stoke-like behavior Status: Active HTN, goal below 130/80 (I10, 401.9) Comm ents: Probable TIA with HTN and left sided hemiparesis. She will increase her Aspirin 81 mg to 2 tabs daily. Goal is to keep b/p less than 140-150/ 90 at least around 140/80MEDS:Clonidine 0.3 mg/ 24 hour patc h, Amlodipine 10 mg, Spironolactone 50 mg bid. --01-12-20 Added Bisoprolol 5 mg 1/2 tab daily. Status: Active Hyperkalemia (E87.5, 276.7) Status: Acti ve Inspiratory wheeze on examination (R06.2, 786.07) Comments: Has been having cough and wheeze for several weeks and continues despite a round of Levaquin and Prednisone. She did not get the Rx'ed MDI as it was denied by her insurance and we will change to Neb tr eatments and add Duo nebs TID. She is instructed to us Sugar free Tussin for cough per label directions PRN.Add Duo Nebs TID as directed/ Machine and use demonstrated in office. Status: Active Insulin-requiring or dependent type II diabetes mellitus (E1 1.9, 250.00) Comments: Encouraged low fat/low cholesterol diabetic diet. Continues on metformin and humalog 75/25 mix. Encouraged diabetic eye exam.A1C today 8.6% Status: Active Irregular cardiac rhythm (I49.9, 427.9) Comments: 1st degree A/V block noted on EKG we will monitor and if pt gets symptomatic we may have to change her Labatalol Status: Active Low back pain radiating to left leg (M54.5, 724.2) Status: Active Lumbar spondylolysis (M43.06, 738.4) Com ments: Medications:Tramadol 50mg (1/2-1 tab q12h prn)-Hx of lumbar DDD. 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 [place] ia also likely r/t t o old multi-infarcts. Status: Active Nocturnal muscle spasm (M62.838, 728.85) Comments: Schedule for NCS and EMG and ABIworse in right lower extremity Status: Active Other allergic rhinitis (J30.89, 477.8) Comments: Stable. Status: Active Other hyperlipidemia (E78.49, 272.4) Sta tus: Active Other specified disorders of bone densit y and structure, other site (M85.88, 733.99) Comments: Reviewed DEXA 01/17 17; normal. Status: Active Other specified disorders of kidney and ureter (N28.89, 593. 89) Status: Active Other specified disorders of kidney and ureter (N28.89, 593. 89) Status: Active Pre-operative clearance (Z01.818, V72.84) Comments: Patient is medically cleared for dental surgery.Labs reviewed. WNL. EKG shows no acute ischemia. Status: Active Primary generalized (osteo)arthritis (M15.0, 715.09) Comments: No joint redness, swelling,or warmth. Continues on tramadol. Status: Active Primary generalized (osteo)arthritis (M15.0, 715.09) Comments: No joint swelling, redness,or warmth. Status: Active Sleep pattern disturbance (G47.20, 780.50) Comments: We will do a trial of Hydroxyzine and MelatoninDaughter called and says Ms. Cardenas is not sleeping more than a couple of hours a night Status: Active SOB (shortness of breath) (R06.02, 786.05) Status: Active Type 2 diabetes mellitus with hemoglobin A1c goal of 7.0%-8. 0% (E11.9, 250.00) Comments: Medications:Humalog 75/25 (30U BID), Metformin ER 500mg-Diminished vision in her right eye, this is of long-standing vision lost; she also has some vision lost in her left eye.A1c:7.9%, 10/10/20 Status: Active Uncontrolled type 2 diabetes mellitus with hyperglycemia (E1 1.65, 250.02) Status: Active Vitamin D deficiency (E55.9, 268.9) Comm ents: Medications:Vit D 50K q/weekly Status: Active Vitamin D deficiency (E55.9, 268.9) Stat us: Active Medications Name Dates Details amLODIPine Besylate 10 MG Oral Tablet 1/2 (one half) Tablet in the morning a nd in the evening for 90 days Quantity: 90 {Tablet} Refills: 1 Ordered:11-May-2021 Grace Lopez NP Start : 11-May-2021 Active ASPIRIN, 81MG (Oral Tablet) 1 DAILY (81 MG) Active Atorvastatin Calcium 20 MG Oral Tablet 1 Tablet at bedtime for 90 days Quantity: 90 {Tablet} Refills: 0 Ordered:24-May-2021 Aquiles Hummel Start : 24-May-2021 Active Bisoprolol Fumarate 5 MG Oral Tablet 1 (one) Tablet every morning and 1/2 at night if HR is still high for 90 days Quantity: 45 {Tablet} Refills: 1 Ordered:11-May-2021 Grace Lopez NP Start : 11-May-2021 Active cloNIDine 0.3 MG/24HR Transdermal Patch Weekly 1 (one) Patch weekly for b/p for 90 days Quantity: 12 {Patch} Refills: 1 Ordered:29-Apr-2021 Grace Lopez NP Start : 29-Apr-2021 Active Ergocalciferol 1.25 MG (25222 UT) Oral Capsule 1 (one) Capsule one po once a week for 0 days Quantity: 4 {Capsule} Refills: 1 Ordered:24-May-2021 Aquiles Hummel Start : 24-May-2021 End : 26-Aug-2016 Active hydrOXYzine HCl 25 MG Oral Tablet 1 (one) Tablet Orally at bedtime for rest/sleep for 14 days Quantity: 14 {Tablet} Refills: 0 Ordered:29-May-2021 Grace Lopez NP Start : 29-May-2021 Active Ipratropium-Albuterol 0.5-2.5 (3) MG/3ML Inhalation Solution 1 (one) Ampule Neb treatments TID with 1 amp Duo/med for 30 days Quantity: 90 {Ampule} Refills: 2 Ordered:07-Dec-2019 Kaylynn Wilde Start : 07-Dec-2019 Active Loratadine 10 MG Oral Tablet 1 (one) Tablet daily for 90 days Quantity: 90 {Tablet} Refills: 1 Ordered:21-Mar-2021 Kaylynn Wilde Start : 21-Mar-2021 Active Melatonin 3 MG Oral Tablet Disintegrating 1 (one) Tablet Dissolve inmouth at bedtime for sleep for 30 days Quantity: 30 {Tablet} Refills: 0 Ordered:16-May-2021 Grace Lopez NP Start : 16-May-2021 Active metFORMIN HCl ER 500 MG Oral Tablet Extended Release 24 Hour 1 (one) Tablet daily for 90 days Quantity: 90 {Tablet} Refills: 1 Ordered:02-Jun-2020 Kaylynn Wilde Start : 02-Jun-2020 Active Montelukast Sodium 10 MG Oral Tablet 1 (one) Tablet Take one tab daily at supper for allergy/ asthma sx's for 30 days Quantity: 30 {Tablet} Refills: 2 Ordered:23-May-2021 Grace Lopez NP Start : 23-May-2021 Active Namzaric 7-10 MG Oral Capsule Extended Release 24 Hour 1 (one) Capsule Take one cap daily for dementia/memory for 30 days Quantity: 30 {Capsule} Refills: 2 Ordered:10-Apr-2021 Grace Lopez NP Start : 10-Apr-2021 Active Comments:>>>NOTE<<< med change/ yadira pt's daughter when ready and explain combination med traMADol HCl 50 MG Oral Tablet 1/2 to 1 Tablet every 12 hours as needed for pain for 30 days Quantity: 60 {Tablet} Refills: 1 Ordered:28-Apr-2021 Grace Lopez NP Start : 28-Apr-2021 Active Comments:Medication taken as needed. ADVIL, 200MG (Oral Capsule) (200 MG) Inactive Albuterol Sulfate HFA 108 (90 Base) MCG/ACT Inhalation Aerosol Solution 1 (one) Puff every 4-6 hours, as needed for 30 days Quantity: 1 {Inhaler} Refills: 0 Ordered:07-Dec-2019 Kaylynn Wilde Start : 24-Nov-2019 End : 07-Dec-2019 Inactive Comments:Medication taken as needed. AMLODIPINE BESYLATE, 10MG (Oral Tablet) 1 daily (10 MG) Inactive Comments:NORVASC ATORVASTATIN CALCIUM, 20MG (Oral Tablet) 1 at bedtime (20 MG) Inactive Comments:LIPITOR Azithromycin 250 MG Oral Tablet 1 (one) Tablet daily for 5 days Quantity: 6 {Tablet} Refills: 0 Ordered:09-Nov-2019 Aquiles Hummel Start : 09-Nov-2019 End : 14-Nov-2019 Inactive Comments:Take 2 tablets on Day 1 and 1 tablet daily after. Benazepril HCl 40 MG Oral Tablet 1 Tablet daily for b/p and renal protection for 90 days Quantity: 90 {Tablet} Refills: 0 Ordered:07-Jan-2020 Kaylynn Wilde Start : 28-Dec-2019 End : 07-Jan-2020 Inactive BENAZEPRIL HCL, 40MG (Oral Tablet) 1 daily (40 MG) Inactive Comments:LOTENSIN Cefdinir 300 MG Oral Capsule 1 (one) Capsule one po twice a day for 10 days for 0 days Quantity: 20 {Capsule} Refills: 0 Ordered:19-Apr-2016 Kaylynn Wilde Start : 20-Mar-2016 End : 19-Apr-2016 Inactive CHERATUSSIN DAC, 30-10-100MG/5ML (Oral Solution) 1 (one) Solution 1 tsp every 6 hours as needed for cough for 0 days Quantity: 180 {Milliliter} Refills: 0 Ordered:25-Jan-2015 Kaylynn Wilde Start : 30-Nov-2014 End : 25-Jan-2015 Inactive Comments:Medication taken as needed. CLONIDINE HCL, 0.1MG (Oral Tablet) 1 (one) Tablet Tablet every twelve hours for blood pressure for 30 days Quantity: 60 {Tablet} Refills: 2 Ordered:01-Feb-2014 Tatum Brady Start : 01-Feb-2014 End : 01-Feb-2014 Inactive CLONIDINE HCL, 0.1MG (Oral Tablet) 1 every twelve hours (0.1 MG) Inactive Comments:CATAPRES DIGOXIN, 0.25MG (Oral Tablet) 1 Tablet every other day for 2 weeks then Discontinue for 14 days Quantity: 37 {Tablet} Refills: 0 Ordered:19-Mar-2012 Grace Lopez NP Start : 19-Mar-2012 End : 02-Apr-2012 Inactive Donepezil HCl 10 MG Oral Tablet 2 (two) Tablet daily for 30 days Quantity: 60 {Tablet} Refills: 3 Ordered:07-Dec-2019 Kaylynn Wilde Start : 30-Sep-2019 End : 07-Dec-2019 Inactive Comments:as dir for memory DONEPEZIL HCL, 10MG (Oral Tablet) 1 daily (10 MG) Inactive Comments:ARICEPT ELIMITE, 5% (External Cream) 1 Cream as directed for 0 days Refills: 0 Ordered:05-Mar-2013 Grace Lopez NP Start : 27-Feb-2013 End : 05-Mar-2013 Inactive Comments:apply and leave on 10 to 12 hours, after getting up wash linens, gown and then shower, repeat application after 7 days Fluticasone Propionate 50 MCG/ACT Nasal Suspension 2 (two) Hume each nostril dialy for 30 days Quantity: 1 {Bottle} Refills: 2 Ordered:21-Mar-2021 Kaylynn Wilde Start : 10-Oct-2020 End : 21-Mar-2021 Inactive GuaiFENesin ER 600 MG Oral Tablet Extended Release 12 Hour 1 (one) Tablet every 12 hours for sinus congestion for 0 days Quantity: 30 {Tablet} Refills: 0 Ordered:18-Nov-2017 Samanta Oakley Start : 06-Nov-2017 End : 18-Nov-2017 Inactive Comments:Take with otc antihistamine such as Claritin or Zyrtec (pt has). HydrOXYzine HCl 10 MG Oral Tablet 1 to 4 tabs Tablet qid, prn for 0 days Quantity: 100 {Tablet} Refills: 0 Ordered:27-Dec-2016 Grace Lopez NP Start : 20-Sep-2016 End : 27-Dec-2016 Inactive Comments:The more tabs the more the sedative effect LABETALOL HCL, 200MG (Oral Tablet) 1 1/2 Tablet two times daily for 30 days Quantity: 90 {Tablet} Refills: 2 Ordered:30-Jul-2013 Tatum Brady Start : 30-Jul-2013 End : 30-Jul-2013 Inactive Comments:for b/p and heart Levaquin 500 MG Oral Tablet 1 (one) Tablet daily for 5 days Quantity: 5 {Tablet} Refills: 0 Ordered:24-Nov-2019 Aquiles Hummel Start : 24-Nov-2019 End : 29-Nov-2019 Inactive LIDODERM, 5% (External Patch) 1 (one) Patch Patch as directed for 0 days Quantity: 60 {Patch} Refills: 0 Ordered:01-Feb-2014 Kaylynn Wilde Start : 22-Apr-2013 End : 01-Feb-2014 Inactive Comments:on 12 hours and off 12 hours to left lower back, no more than 3 patches per 24 hours MetFORMIN HCl ER 500 MG Oral Tablet Extended Release 24 Hour 1 (one) Tablet daily for blood glucose for 30 days Quantity: 30 {Tablet} Refills: 0 Ordered:26-Jun-2018 Rosa Ocampo NP Start : 26-Jun-2018 End : 26-Jul-2018 Inactive METFORMIN HCL, 500MG (Oral Tablet) 1 (one) Tablet with lunch daily for 31 days Quantity: 31 {Tablet} Refills: 2 Ordered:05-Mar-2013 Grace Lopez NP Start : 13-Feb-2013 End : 05-Mar-2013 Inactive Comments:for diabetes, have pt note dose MetroNIDAZOLE 0.75 % Vaginal Gel 1 (one) Application two times daily for 5 days Quantity: 10 {Applicator} Refills: 0 Ordered:10-Dec-2016 Grace Lopez NP Start : 10-Dec-2016 End : 15-Dec-2016 Inactive Comments:for vaginal discharge MetroNIDAZOLE 250 MG Oral Tablet 1 (one) Tablet three times daily with meals for 10 days Quantity: 30 {Tablet} Refills: 0 Ordered:25-Mar-2017 Rosa Ocampo NP Start : 25-Mar-2017 End : 04-Apr-2017 Inactive Namenda 10 MG Oral Tablet 1 (one) Tablet Tablet two times daily for 30 days Quantity: 60 {Tablet} Refills: 2 Ordered:14-May-2018 Rosa Ocampo NP Start : 25-Dec-2017 End : 14-May-2018 Inactive NOVOLOG MIX 70/30 FLEXPEN, (70-30) 100UNIT/ML (Subcutaneous Suspension) 30 Units two times daily ((70-30) 100 UNIT/ML) Inactive NOVOLOG MIX 70/30, (70-30) 100UNIT/ML (Subcutaneous Suspension) 3o units Suspension two times daily for 31 days Refills: 2 Ordered:13-Feb-2013 Kaylynn Wilde Start : 07-Nov-2012 End : 13-Feb-2013 Inactive Comments:Pt actually gets this through patient assistance program, but her daughter said you needed it on record to get her glucose strips. ONGLYZA, 2.5MG (Oral Tablet) 1 Tablet Tablet daily for 30 days Quantity: 30 {Tablet} Refills: 2 Ordered:01-Feb-2014 Kaylynn Wilde Start : 30-Jul-2013 End : 01-Feb-2014 Inactive Comments:for diabetes predniSONE 20 MG Oral Tablet 2 (two) Tablet daily for 5 days Quantity: 10 {Tablet} Refills: 0 Ordered:24-Nov-2019 Aquiles Hummel Start : 24-Nov-2019 End : 29-Nov-2019 Inactive PREDNISONE, 5MG (Oral Tablet) 1 (one) Tablet three times daily for 7 days Quantity: 21 {Tablet} Refills: 0 Ordered:22-Apr-2013 Grace Lopez NP Start : 22-Apr-2013 End : 29-Apr-2013 Inactive Comments:with food for 7 days for back Robaxin 500 MG Oral Tablet 1 (one) Tablet two times daily, as needed at supper and bedtime for cramps for 30 days Quantity: 60 {Tablet} Refills: 0 Ordered:01-Dec-2018 Carleen Wisdom Start : 01-Dec-2018 End : 31-Dec-2018 Inactive Comments:Medication taken as needed. Medication was approved Spironolactone 50 MG Oral Tablet 1 bid (50 MG) Inactive Spironolactone 50 MG Oral Tablet 1 Tablet BID for b/p for 90 days Quantity: 180 {Tablet} Refills: 1 Ordered:21-Mar-2021 Kaylynn Wilde Start : 05-May-2020 End : 21-Mar-2021 Inactive Symbicort 80-4.5 MCG/ACT Inhalation Aerosol 1 (one) Puff twice daily for 30 days Quantity: 1 {Inhaler} Refills: 1 Ordered:21-Mar-2021 Kaylynn Wilde Start : 05-Feb-2020 End : 21-Mar-2021 Inactive Comments:Send for PA if needed to [phone] TESSALON PERLES, 100MG (Oral Capsule) 1 (one) Capsule one po tid as needed for cough for 0 days Quantity: 30 {Capsule} Refills: 0 Ordered:10-Aug-2014 Kaylynn Wilde Start : 22-Jun-2014 End : 10-Aug-2014 Inactive Comments:Medication taken as needed. TRAMADOL HCL, 50MG (Oral Tablet) 1/2-1 four times daily, as needed (50 MG) Inactive Comments:Medication taken as needed. ULTRAM TRIAMCINOLONE ACETONIDE, 0.1% (External Lotion) 1 Lotion Lotion three times daily for 10 days Quantity: 100 {Milliliter} Refills: 1 Ordered:07-Apr-2015 Kaylynn Wilde Start : 24-Nov-2013 End : 07-Apr-2015 Inactive Comments:to rash Vitamin D (Ergocalciferol) 1.25 MG (67690 UT) Oral Capsule 1 (one) Capsule weekly for 0 days Quantity: 4 {Capsule} Refills: 2 Ordered:07-Dec-2019 Grace Lopez NP Start : 10-Apr-2019 End : 07-Dec-2019 Inactive Vitamin D (Ergocalciferol) 50969 UNIT Oral Capsule 1 (one) Capsule weekly for low vitamin D for 30 days Quantity: 4 {Capsule} Refills: 2 Ordered:21-Aug-2017 Samanta Oakley Start : 21-May-2017 End : 21-Aug-2017 Inactive Vitamin D3 1.25 MG (91006 UT) Oral Capsule 1 (one) Capsule once a week for 180 days Quantity: 24 {Capsule} Refills: 0 Ordered:30-Sep-2019 Marisol Dominguez Start : 30-Sep-2019 End : 28-Mar-2020 Inactive ZITHROMAX Z-PHIL, 250MG (Oral Tablet) 1 (one) Tablet Tablet as directed for 0 days Quantity: 1 {Package} Refills: 0 Ordered:10-Aug-2014 HoaglandKaylynn thompson Start : 22-Jun-2014 End : 10-Aug-2014 Inactive ZyrTEC Allergy 10 MG Oral Tablet 1 (one) Tablet Tablet daily for 30 days Quantity: 30 {Tablet} Refills: 0 Ordered:18-Aug-2018 Jeni Hyatt Start : 25-Dec-2017 End : 18-Aug-2018 Inactive Comments:Stop claritin/loratadine. CloNIDine HCl 0.3 MG/24HR Transdermal Patch Weekly 1 (one) Patch weekly for b/p for 28 days Quantity: 4 {Patch} Refills: 2 Ordered:14-May-2018 Paola Maloney Start : 14-May-2018 End : 13-Nov-2018 Discontinued Comments:This order discontinued per [employer]. Namenda 5 MG Oral Tablet 1 (one) Tablet one po once a day for memory for 30 days Quantity: 30 {Tablet} Refills: 1 Ordered:09-Feb-2020 Grace Lopez NP Start : 09-Feb-2020 End : 09-Feb-2020 Discontinued Comments:Note med change for a month trial follow up at office for refill in one month Medications Administered Name Dates Details Kenalog 40 MG/ML Injection Suspension Ordered: 1 (one) ml Grace Lopez NP Start : 10-Dec-2014 End : 10-Dec-2014 Administered Comments:Site: Deltoid, (L) Kenalog 40 MG/ML Injection Suspension 1 (one) ml Ordered:10-Dec-2014 Tatum Brady Start : 10-Dec-2014 End : 10-Dec-2014 Administered Comments:Site: Deltoid, (L) Ketorolac Tromethamine 60 MG/2ML Injection Solution 2 (two) ml Ordered:22-Apr-2013 Grace Lopez NP Start : 10-Dec-2014 End : 10-Dec-2014 Administered Comments:Site: Buttocks, (L) Allergies and Adverse Reactions Name Dates Details No Known Drug Allergies (Allergy) Onset: 03-Aug-2013 Status : Active No Known Drug Allergies (Allergy) Onset: 22-Oct-2011 Status : Inactive Past Medical History Name Dates Details Age related osteoporosis (M81.0, 733.01) Status: Inactive as of 04-Jan-2020 Asthma Status: Inactive as of 04-Jan-2020 Bronchiolitis (J21.9, 466.19) Comments: Vitals wnl, pulseOx >90%. Minimal wheezing on exam. Rx prednisone, short course of Levaquin, and albuterol inh to use prn. F/u prn. Status: Resolved as of 04-Jan-2020 Bronchitis (J40, 490) Status: Resolved a s of 04-Jan-2020 Cardiac dysrhythmia (I49.9, 427.9) Statu s: Inactive as of 06-Oct-2013 Cognitive decline (R41.89, 294.9) Status : Inactive as of 04-Jan-2020 Cough (R05.9, 786.2) Comments: Given alexsandra ple of Dulera 200/50 1 inhalation twice a day, with inst. Zpk as directed. Follow up if no improvement x 7-10days, sooner if s/s worsen.Has had a cough for about a month, not productive, worse at night and not imp roved with Robitussin. Denies SOB Status: Inactive as of 21-Jul-2016 Decreased renal function (N28.9, 593.9) Comments: 12/2016 BUN 22 and creatinine 1.72 with GFR31. Will schedule follow up appt. with Dr. Roblero. Status: Inactive as of 18-Jan-2017 Decreased renal function (N28.9, 593.9) Status: Inactive as of 20-Feb-2017 Dementia (F03.90, 294.20) Status: Inacti ve as of 15-Feb-2017 Dermatitis (L30.9, 692.9) Status: Resolv ed as of 04-Jan-2020 Diabetes Mellitus Status: Inactive as of 04-Jan-2020 Diabetes Mellitus Status: Inactive as of 27-May-2013 Disorder of bone density and structure, unspecified (M85.9, 733.90) Comments: Encouraged increased intake of Ca+ rich foods; encouraged to start vitamin D supplementation as pescribed.DEXA -0.9 12/2016. Status: Inactive as of 21-Jan-2019 DM (diabetes mellitus), type 2 (E11.9, 250.00) Comments: Pt is given order to have labs drawn.daughter states blood sugar has been running less than 140 Status: Inactive as of 26-Aug-2016 Dyslipidemia (E78.5, 272.4) Comments: Pt will need fasting labs prior to next visit as she continues on several high risk meds. Has her order from last visit andplans to go to lab after she leaves the office today.Daughter says they have no t gotten labs as req uested last visit but plan to go today to have labs drawn. Status: Inactive as of 28-Dec-2016 Elevated hemoglobin A1c (Renamed from El evated glycated hemoglobin) (R73.09, 790.6) Status: Inactive as of Fatigue (R53.83, 780.79) Comments: Sympt oms resolved, CBC recheck reveal Eosinophils to be decreased from previous elevation. Status: Inactive as of 04-Jan-2020 High blood pressure Status: Inactive as of 04-Jan-2020 High blood pressure Status: Inactive as of 27-May-2013 HTN (hypertension) (I10, 401.9) Comments : inst on importance of taking medication, not to miss doses. Her b/p is up today and her daughter says it runs around 140-150/80's most of the time. We will increase her Clonidine patch to 0. 2 TTS and sh e will continue to m onitor b/p at home and is to RTO if B/P is over 140/90 on a consistent basis.Pt needs refills and changed her weely b/p patch this morning. Status: Inactive as of 15-Feb-2017 Inguinal hernia, right (K40.90, 550.90) Comments: US demonstrates hernia, will refer to Dr. Mcghee for evaluation.Pt will noticeable protrussion in right inguinal area, daughter states it has been present and getting larger for several months Status: Inactive as of 21-Jul-2016 Knee joint cyst (M25.869, 719.86) Commen ts: xr right knee, probable small lipomaPalpable nodule left medial tibia Status: Inactive as of 21-Jul-2016 Medicine refill (Z76.0, V68.1) Status: I nactive as of 21-Jan-2019 Memory deficits (R41.3, 780.93) Comments : stable, continue present treatment Status: Inactive as of 04-Jan-2020 Muscle spasm (M62.838, 728.85) Status: I nactive as of 21-Jul-2016 Myocardial infarction Status: Inactive a s of 04-Jan-2020 OA (osteoarthritis) (M19.90, 715.90) Sta tus: Inactive as of 04-Jan-2020 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, 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) Status: Inactive as of 21-Jul-2016 Preoperative clearance (Z01.818, V72.84) Status: Inactive as of 06-Oct-2013 Preoperative examination (Z01.818, V72.84) Status: Inactive as of 04-Jan-2020 Rash and nonspecific skin eruption (R21, 782.1) Comments: Poss photosensitiveMacular/papular, puretic rash over exposed surfaces of arms, neck and thighs Status: Inactive as of 27-May-2013 Renal insufficiency (N28.9, 593.9) Statu s: Inactive as of 21-Jul-2016 Screening mammogram, encounter for (Z12.31, V76.12) Status: Inactive as of 21-Jan-2019 Seasonal allergies (J30.2, 477.9) Status : Inactive as of 21-Jul-2016 Sinus congestion (R09.81, 478.19) Status : Resolved as of 21-Jan-2019 Unspecified Diagnosis Status: Inactive a s of 27-May-2013 URI (upper respiratory infection) (J06.9, 465.9) Status: Inactive as of 21-Jul-2016 Vaginal discharge (N89.8, 623.5) Comment s: Pt saw Dr Delgado and had pelvic/PAP and was treated with an antibiotic and sx's got better but has recurred with vaginal odor and discharge.Pap was ok, daughter continues to complain that pt has pers. vaginal discharge Status: Resolved as of 04-Jan-2020 Vaginal odor (N89.8, 625.8) Status: Inac tive as of 15-Feb-2017 Vaginitis (N76.0, 616.10) Status: Inacti ve as of 26-Aug-2016 Vitamin D deficiency (E55.9, 268.9) Comm ents: We will recheck her Vit-D level and get a Dexa scan scheduled and resume meds as indicated.She took meds for calcium and Vit D for awhile but stopped about 6 to 8 months ago. Status: Inactive as of 28-Dec-2016 Vitamin D deficiency, unspecified (E55.9, 268.9) Comments: 12/2016 vitamin D level 14. Status: Inactive as of 18-Jan-2017 Procedures Procedure Dates Details EKG (32820) Date: 19-Apr-2021 Completed 1 Comments: EKG perfor med by Mary Kate Reyes LPN. Pneumonia Vaccine (18249) Date: 10-Feb-2020 Completed A COMPLETE PULMONARY FUNCTION TESTING Date: 29-Jan-2020 Comp leted 08-Feb-2020 (PFT) ([id number]) VENIPUNCTURE FOR BLOOD TEST ([id number]) Date: 04-Jan-2020 Comp leted 04-Jan-2020 Comments: Collected at 8:50 a.m. in the [facility] and she tolerated it well. Pneumonia Vaccine ([id number]) Date: 07-Apr-2015 Completed Flu Vaccine ([id number]) Date: 07-Apr-2015 Completed 07-Apr-2015 KENALOG 10 MG (J3301) Date: 10-Dec-2014 Completed 2014 TORODAL INJECTION, PER 15 MG Date: 22-Apr-2013 Completed 1 30-Nov-2014 ([id number]) KENALOG 10 MG (J3301) Date: 27-Feb-2013 Completed 2014 No pertinent past surgical history Compl eted No pertinent past surgical history Compl eted Date Value Details 22-Apr-2013 Trigger point of 1-2 (01417) Comments: l eft SI region 2 inches lateral to the L/5-S/1 vertebrae Result: Indication: Pain, Sp asm; Consent and Procedure: The procedure was explained to the patient and/or responsible guardian and alternative treatments discussed including no treatment. The patient was advise d of possible complications including but not limited to scar formation, bleeding, swelling, infection, and pain. [Site 1] Site: Other (2 inches lateral to the L/5-S/1 vertebrae in the left SI region); Needle size: 29 gauge; Medi cation 1: Bupivacaine 0.50%, Kenalog, Lidocaine 1%; Dose: 20-1-1 [Post - injection] Patient response to procedure: No immediate complications observed, Tolerated well without complication; Patient instr uctions: Apply ice to site for 20 minutes/hour for discomfort, Keep area clean and dry, Call office if excessive swelling, redness, fever or pain occur; Comments: person with pt verbalizes will RTO or ER if sx's ch brandon or worsen. Immunization Name Dates Details Influenza (3 years and up) on: Mar-2010 Influenza (3 years and up) on: 07-Apr-2015 Comments: Sit e: Deltoid (Right) Lot #: [id number] Pneumococcal (2 yrs and up) PPSV23 on: 07-Apr-2015 Comme nts: Site: Deltoid (Left) Lot #: [id number] Pneumococcal (2 yrs and up) PPSV23 on: 10-Feb-2020 Comme nts: Site: Right Arm Lot #: [id number] Pneumococcal (2 yrs and up) PPSV23 on: 29-May-2010 Family History Unknown Family Member Name Dates Details Anemia Status: Active Asthma Status: Active Diabetes Mellitus Status: Active Heart Disease Status: Active Hypertension Status: Active Asthma Status: Inactive as of 08-Dec-2019 Diabetes Mellitus Status: Inactive as of 08-Dec-2019 Heart Disease Status: Inactive as of 08-Dec-2019 Hypertension Status: Inactive as of 08-Dec-2019 Social History Name Dates Details Alcohol use Comments: 08/03/2013 : Drinks 2 times per week. Status: Active Caffeine use Comments: 08/03/2013 : Drinks coffee. Status: Active Current tobacco use Status: Active Exercise Comments: 10/23/2011 : Walks 1-2 times a week. Status: Active HIV risk factors Comments: 10/23/2011 : no Status: Active Illicit drug use Comments: 10/23/2011 : none Status: Active No Drug Use Status: Active Non Drinker/No Alcohol Use Status: Activ e Seat Belt Use Comments: 10/23/2011 : always Status: Active Sun Exposure Comments: 10/23/2011 : rarely Status: Active Tobacco use Comments: 08/03/2013 : Never smoker. Status: Active Alcohol use Comments: 10/23/2011 : Drinks beer 3 times per week having 1-2 drinks per occasion, never having more than 5 drinks per occasion. Status: Inactive as of 08-Dec-2019 Caffeine use Comments: 10/23/2011 : Drinks soft drinks 1-2 times a day. Status: Inactive as of 08-Dec-2019 Seat Belt Use Comments: 08/03/2013 : almost always Status: Inactive as of 08-Dec-2019 Tobacco / smoke exposure Comments: 10/22: No Status: Inactive as of 08-Dec-2019 Tobacco use Comments: 10/23/2011 : Never smoker: smokes 0 cigar(s) per week, uses 0 can(s) of smokeless tobacco per week. Status: Inactive as of 08-Dec-2019 Vital Signs Date Test Result Details :39 Body temperature 97.9 f Heart Rate 49 /min Comments: Pattern: R egular Respiratory rate 18 /min Comments: Pattern: U nlabored O2 SAT 98 % Comments: Room air Systolic blood pressure 166 mm[Hg] Comments: Patien t Position: Sitting; Cuff Location: Left Arm; Cuff Size: Standard Diastolic blood pressure 90 mm[Hg] Comments: Patie nt Position: Sitting; Cuff Location: Left Arm; Cuff Size: Standard Weight 170 lb Body height 65 in Body mass index (BMI) [Ratio] 28.29 kg/m2 Body surface area Derived from formula 1.85 m2 :11 Comments: O2 Sa t is 96% with a mask on. Body temperature 97.6 f Comments: Method: Te mporal Heart Rate 55 /min Comments: Pattern: R egular Respiratory rate 18 /min Comments: Pattern: U nlabored O2 SAT 96 % Comments: Room air Systolic blood pressure 146 mm[Hg] Comments: Patien t Position: Sitting; Cuff Location: Left Arm; Cuff Size: Standard Diastolic blood pressure 73 mm[Hg] Comments: Patie nt Position: Sitting; Cuff Location: Left Arm; Cuff Size: Standard Weight 172 lb Body height 65 in Body mass index (BMI) [Ratio] 28.62 kg/m2 Body surface area Derived from formula 1.86 m2 :16 Body temperature 97.5 f Heart Rate 52 /min Comments: Pattern: R egular Respiratory rate 18 /min Comments: Pattern: U nlabored O2 SAT 97 % Comments: Room air Systolic blood pressure 179 mm[Hg] Comments: Patien t Position: Sitting; Cuff Location: Left Arm; Cuff Size: Standard Diastolic blood pressure 89 mm[Hg] Comments: Patie nt Position: Sitting; Cuff Location: Left Arm; Cuff Size: Standard Weight 172 lb Body height 65 in Body mass index (BMI) [Ratio] 28.62 kg/m2 Body surface area Derived from formula 1.86 m2 :03 Body temperature 97.6 f Heart Rate 50 /min Comments: Pattern: R egular Respiratory rate 18 /min Comments: Pattern: U nlabored O2 SAT 100 % Comments: Room air Systolic blood pressure 185 mm[Hg] Comments: Patien t Position: Sitting; Cuff Location: Left Arm; Cuff Size: Standard Diastolic blood pressure 84 mm[Hg] Comments: Patie nt Position: Sitting; Cuff Location: Left Arm; Cuff Size: Standard Weight 188 lb Body height 65 in Body mass index (BMI) [Ratio] 31.28 kg/m2 Body surface area Derived from formula 1.93 m2 :58 Body temperature 97.5 f Heart Rate 53 /min Comments: Pattern: R egular Respiratory rate 18 /min Comments: Pattern: U nlabored O2 SAT 100 % Comments: Room air Systolic blood pressure 190 mm[Hg] Comments: Patien t Position: Sitting; Cuff Location: Left Arm; Cuff Size: Standard Diastolic blood pressure 88 mm[Hg] Comments: Patie nt Position: Sitting; Cuff Location: Left Arm; Cuff Size: Standard Weight 190 lb Body height 65 in Body mass index (BMI) [Ratio] 31.62 kg/m2 Body surface area Derived from formula 1.94 m2 :25 Body temperature 98.5 f Heart Rate 58 /min Comments: Pattern: R egular Respiratory rate 18 /min Comments: Pattern: U nlabored O2 SAT 98 % Comments: Room air Systolic blood pressure 178 mm[Hg] Comments: Patien t Position: Sitting; Cuff Location: Left Arm; Cuff Size: Standard Diastolic blood pressure 87 mm[Hg] Comments: Patie nt Position: Sitting; Cuff Location: Left Arm; Cuff Size: Standard Weight 190.25 lb Body height 65 in Body mass index (BMI) [Ratio] 31.66 kg/m2 Body surface area Derived from formula 1.94 m2 :04 Body temperature 98.8 f Heart Rate 83 /min Comments: Pattern: R egular Respiratory rate 18 /min Comments: Pattern: U nlabored O2 SAT 96 % Comments: Room air Systolic blood pressure 178 mm[Hg] Comments: Patien t Position: Sitting; Cuff Location: Left Arm; Cuff Size: Standard Diastolic blood pressure 90 mm[Hg] Comments: Patie nt Position: Sitting; Cuff Location: Left Arm; Cuff Size: Standard Weight 190.25 lb Body height 65 in Body mass index (BMI) [Ratio] 31.66 kg/m2 Body surface area Derived from formula 1.94 m2 :54 Body temperature 98.1 f Heart Rate 72 /min Comments: Pattern: R egular Respiratory rate 18 /min Comments: Pattern: U nlabored O2 SAT 99 % Comments: Room air Systolic blood pressure 174 mm[Hg] Comments: Patien t Position: Sitting; Cuff Location: Left Arm; Cuff Size: Standard Diastolic blood pressure 83 mm[Hg] Comments: Patie nt Position: Sitting; Cuff Location: Left Arm; Cuff Size: Standard Weight 189.25 lb Body height 65 in Body mass index (BMI) [Ratio] 31.49 kg/m2 Body surface area Derived from formula 1.93 m2 :20 Body temperature 97.4 f Heart Rate 71 /min Comments: Pattern: R egular Respiratory rate 18 /min Comments: Pattern: U nlabored O2 SAT 100 % Comments: Room air Systolic blood pressure 146 mm[Hg] Comments: Patien t Position: Sitting; Cuff Location: Left Arm; Cuff Size: Standard Diastolic blood pressure 75 mm[Hg] Comments: Patie nt Position: Sitting; Cuff Location: Left Arm; Cuff Size: Standard Weight 190.25 lb Body height 65 in Body mass index (BMI) [Ratio] 31.66 kg/m2 Body surface area Derived from formula 1.94 m2 :15 Body temperature 98.9 f Comments: Meth od: Oral Heart Rate 84 /min Comments: Pattern: R egular Respiratory rate 18 /min Comments: Pattern: U nlabored O2 SAT 93 % Comments: Room air Systolic blood pressure 166 mm[Hg] Comments: Patien t Position: Sitting; Cuff Location: Left Arm; Cuff Size: Standard Diastolic blood pressure 84 mm[Hg] Comments: Patie nt Position: Sitting; Cuff Location: Left Arm; Cuff Size: Standard Weight 196.25 lb :27 Body temperature 98.6 f Comments: Metho d: Oral Heart Rate 76 /min Comments: Pattern: R egular Respiratory rate 18 /min Comments: Pattern: U nlabored O2 SAT 95 % Comments: Room air Systolic blood pressure 146 mm[Hg] Comments: Patien t Position: Sitting; Cuff Location: Left Arm; Cuff Size: Standard Diastolic blood pressure 86 mm[Hg] Comments: Patie nt Position: Sitting; Cuff Location: Left Arm; Cuff Size: Standard Weight 193 lb :53 Body temperature 98.4 f Comments: Metho d: Oral Heart Rate 78 /min Comments: Pattern: R egular Respiratory rate 18 /min Comments: Pattern: U nlabored O2 SAT 97 % Comments: Room air Systolic blood pressure 173 mm[Hg] Comments: Patien t Position: Sitting; Cuff Location: Left Arm; Cuff Size: Standard Diastolic blood pressure 77 mm[Hg] Comments: Patie nt Position: Sitting; Cuff Location: Left Arm; Cuff Size: Standard Weight 190.125 lb Body height 65 in Body mass index (BMI) [Ratio] 31.64 kg/m2 Body surface area Derived from formula 1.94 m2 :13 Body temperature 98.5 f Comments: Meth od: Oral Heart Rate 66 /min Comments: Pattern: R egular Respiratory rate 18 /min Comments: Pattern: U nlabored O2 SAT 95 % Comments: Room air Systolic blood pressure 158 mm[Hg] Comments: Patien t Position: Sitting; Cuff Location: Left Arm; Cuff Size: Standard Diastolic blood pressure 81 mm[Hg] Comments: Patie nt Position: Sitting; Cuff Location: Left Arm; Cuff Size: Standard Weight 190.125 lb Body height 65 in Body mass index (BMI) [Ratio] 31.64 kg/m2 Body surface area Derived from formula 1.94 m2 :31 Body temperature 98.9 f Comments: Meth od: Oral Heart Rate 71 /min Comments: Pattern: R egular Respiratory rate 18 /min Comments: Pattern: U nlabored O2 SAT 96 % Comments: Room air Systolic blood pressure 169 mm[Hg] Comments: Patien t Position: Sitting; Cuff Location: Right Arm; Cuff Size: Standard Diastolic blood pressure 83 mm[Hg] Comments: Patie nt Position: Sitting; Cuff Location: Right Arm; Cuff Size: Standard Weight 190 lb Body height 65 in Body mass index (BMI) [Ratio] 31.62 kg/m2 Body surface area Derived from formula 1.94 m2 :25 Body temperature 98.3 f Comments: Meth od: Oral Heart Rate 79 /min Comments: Pattern: R egular Respiratory rate 79 /min Comments: Pattern: U nlabored O2 SAT 96 % Comments: Room air Systolic blood pressure 169 mm[Hg] Comments: Patien t Position: Sitting; Cuff Location: Right Arm; Cuff Size: Standard Diastolic blood pressure 82 mm[Hg] Comments: Patie nt Position: Sitting; Cuff Location: Right Arm; Cuff Size: Standard Weight 182.5 lb Body height 65 in Body mass index (BMI) [Ratio] 30.37 kg/m2 Body surface area Derived from formula 1.90 m2 :26 Comments: pt higuera s not taking medications. She thought since she was supposed to be fasting she couldn't take her meds. I informed her to always take medications with a sip of water. Body temperature 98 f Comments: Method: Or al Heart Rate 81 /min Comments: Pattern: R egular Respiratory rate 19 /min Comments: Pattern: U nlabored O2 SAT 95 % Comments: Room air Systolic blood pressure 180 mm[Hg] Comments: Patien t Position: Sitting; Cuff Location: Left Arm; Cuff Size: Standard Diastolic blood pressure 83 mm[Hg] Comments: Patie nt Position: Sitting; Cuff Location: Left Arm; Cuff Size: Standard Weight 175.25 lb Body height 65 in Body mass index (BMI) [Ratio] 29.16 kg/m2 Body surface area Derived from formula 1.87 m2 :52 Body temperature 98.3 f Comments: Meth od: Oral Heart Rate 75 /min Comments: Pattern: R egular Respiratory rate 18 /min Comments: Pattern: U nlabored O2 SAT 93 % Comments: Room air Systolic blood pressure 162 mm[Hg] Comments: Patien t Position: Sitting; Cuff Location: Left Arm; Cuff Size: Standard Diastolic blood pressure 86 mm[Hg] Comments: Patie nt Position: Sitting; Cuff Location: Left Arm; Cuff Size: Standard Weight 175.25 lb Body height 65 in Body mass index (BMI) [Ratio] 29.16 kg/m2 Body surface area Derived from formula 1.87 m2 :02 Comments: Took meds just before visit.Manual recheck 150/90. Body temperature 98.8 f Comments: Method: Or al Heart Rate 72 /min Comments: Pattern: R egular Respiratory rate 20 /min Comments: Pattern: U nlabored O2 SAT 93 % Comments: Room air Systolic blood pressure 174 mm[Hg] Comments: Patien t Position: Sitting; Cuff Location: Left Arm; Cuff Size: Standard Diastolic blood pressure 94 mm[Hg] Comments: Patie nt Position: Sitting; Cuff Location: Left Arm; Cuff Size: Standard Weight 160.8 lb Body height 65 in Body mass index (BMI) [Ratio] 26.76 kg/m2 Body surface area Derived from formula 1.80 m2 :18 Body temperature 98.6 f Comments: Metho d: Oral Heart Rate 60 /min Comments: Pattern: R egular Systolic blood pressure 165 mm[Hg] Comments: Patien t Position: Sitting; Cuff Location: Left Arm; Cuff Size: Standard Diastolic blood pressure 85 mm[Hg] Comments: Patie nt Position: Sitting; Cuff Location: Left Arm; Cuff Size: Standard Weight 158 lb Body height 65 in Body mass index (BMI) [Ratio] 26.29 kg/m2 Body surface area Derived from 1.79 m2 formula :19 Body temperature 98.1 f Comments: Metho d: Oral Heart Rate 63 /min Comments: Pattern: R egular Respiratory rate 20 /min Comments: Pattern: U nlabored O2 SAT 98 % Comments: Room air Systolic blood pressure 158 mm[Hg] Comments: Patien t Position: Sitting; Cuff Location: Left Arm; Cuff Size: Standard Diastolic blood pressure 82 mm[Hg] Comments: Patie nt Position: Sitting; Cuff Location: Left Arm; Cuff Size: Standard Weight 158.8 lb Body height 65 in Body mass index (BMI) [Ratio] 26.43 kg/m2 Body surface area Derived from formula 1.79 m2 :26 Body temperature 98.3 f Comments: Metho d: Oral Heart Rate 64 /min Comments: Pattern: R egular Respiratory rate 20 /min Comments: Pattern: U nlabored O2 SAT 100 % Comments: Room air Systolic blood pressure 188 mm[Hg] Comments: Patien t Position: Sitting; Cuff Location: Left Arm; Cuff Size: Standard Diastolic blood pressure 89 mm[Hg] Comments: Patie nt Position: Sitting; Cuff Location: Left Arm; Cuff Size: Standard Weight 159 lb Body height 65 in Body mass index (BMI) [Ratio] 26.46 kg/m2 Body surface area Derived from formula 1.79 m2 :32 Comments: Took BP meds just before visit today. Body temperature 97.7 f Comments: Method: Or al Heart Rate 69 /min Comments: Pattern: R egular Respiratory rate 18 /min Comments: Pattern: U nlabored O2 SAT 98 % Comments: Room air Systolic blood pressure 174 mm[Hg] Comments: Patien t Position: Sitting; Cuff Location: Left Arm; Cuff Size: Standard Diastolic blood pressure 83 mm[Hg] Comments: Patie nt Position: Sitting; Cuff Location: Left Arm; Cuff Size: Standard Weight 166.6 lb Body height 65 in Body mass index (BMI) [Ratio] 27.72 kg/m2 Body surface area Derived from formula 1.83 m2 :31 Body temperature 98.2 f Comments: Meth od: Oral Heart Rate 66 /min Comments: Pattern: R egular Respiratory rate 20 /min Comments: Pattern: U nlabored O2 SAT 96 % Comments: Room air Systolic blood pressure 171 mm[Hg] Comments: Patien t Position: Sitting; Cuff Location: Left Arm; Cuff Size: Standard Diastolic blood pressure 83 mm[Hg] Comments: Patie nt Position: Sitting; Cuff Location: Left Arm; Cuff Size: Standard Weight 171.375 lb Body height 65 in Body mass index (BMI) [Ratio] 28.52 kg/m2 Body surface area Derived from formula 1.85 m2 :03 Body temperature 98.3 f Heart Rate 64 /min Comments: Pattern: R egular Respiratory rate 19 /min Comments: Pattern: U nlabored O2 SAT 98 % Comments: Room air Systolic blood pressure 162 mm[Hg] Comments: Patien t Position: Sitting; Cuff Location: Left Arm; Cuff Size: Standard Diastolic blood pressure 80 mm[Hg] Comments: Patie nt Position: Sitting; Cuff Location: Left Arm; Cuff Size: Standard Weight 171.375 lb Body height 65 in Body mass index (BMI) [Ratio] 28.52 kg/m2 Body surface area Derived from formula 1.85 m2 :53 Body temperature 98.7 f Comments: Meth od: Oral Heart Rate 71 /min Comments: Pattern: R egular Respiratory rate 19 /min Comments: Pattern: U nlabored O2 SAT 98 % Comments: Room air Systolic blood pressure 154 mm[Hg] Comments: Patien t Position: Sitting; Cuff Location: Left Arm; Cuff Size: Standard Diastolic blood pressure 83 mm[Hg] Comments: Patie nt Position: Sitting; Cuff Location: Left Arm; Cuff Size: Standard Weight 168.6 lb Body height 65 in Body mass index (BMI) [Ratio] 28.06 kg/m2 Body surface area Derived from formula 1.84 m2 :53 Body temperature 98.3 f Heart Rate 53 /min Comments: Pattern: R egular Respiratory rate 19 /min Comments: Pattern: U nlabored O2 SAT 98 % Comments: Room air Systolic blood pressure 171 mm[Hg] Comments: Patien t Position: Sitting; Cuff Location: Left Arm; Cuff Size: Standard Diastolic blood pressure 79 mm[Hg] Comments: Patie nt Position: Sitting; Cuff Location: Left Arm; Cuff Size: Standard Weight 171 lb Body height 65 in Body mass index (BMI) [Ratio] 28.46 kg/m2 Body surface area Derived from formula 1.85 m2 :31 Body temperature 97.9 f Comments: Meth od: Oral Heart Rate 65 /min Comments: Pattern: R egular Respiratory rate 19 /min Comments: Pattern: U nlabored O2 SAT 97 % Comments: Room air Systolic blood pressure 160 mm[Hg] Comments: Patien t Position: Sitting; Cuff Location: Left Arm; Cuff Size: Standard Diastolic blood pressure 81 mm[Hg] Comments: Patie nt Position: Sitting; Cuff Location: Left Arm; Cuff Size: Standard Weight 172 lb Body height 65 in Body mass index (BMI) [Ratio] 28.62 kg/m2 Body surface area Derived from formula 1.86 m2 :48 Body temperature 98.5 f Comments: Metho d: Oral Heart Rate 70 /min Comments: Pattern: R egular Respiratory rate 19 /min Comments: Pattern: U nlabored O2 SAT 94 % Comments: Room air Systolic blood pressure 167 mm[Hg] Comments: Patien t Position: Sitting; Cuff Location: Left Arm; Cuff Size: Standard Diastolic blood pressure 94 mm[Hg] Comments: Patie nt Position: Sitting; Cuff Location: Left Arm; Cuff Size: Standard Weight 172 lb Body height 65 in Body mass index (BMI) [Ratio] 28.62 kg/m2 Body surface area Derived from formula 1.86 m2 :33 Body temperature 98.9 f Comments: Meth od: Oral Heart Rate 66 /min Comments: Pattern: R egular Respiratory rate 19 /min Comments: Pattern: U nlabored O2 SAT 97 % Comments: Room air Systolic blood pressure 158 mm[Hg] Comments: Patien t Position: Sitting; Cuff Location: Left Arm; Cuff Size: Standard Diastolic blood pressure 81 mm[Hg] Comments: Patie nt Position: Sitting; Cuff Location: Left Arm; Cuff Size: Standard Weight 172 lb Body height 65 in Body mass index (BMI) [Ratio] 28.62 kg/m2 Body surface area Derived from formula 1.86 m2 :23 Body temperature 98.9 f Comments: Meth od: Oral Heart Rate 69 /min Comments: Pattern: R egular Respiratory rate 17 /min Comments: Pattern: U nlabored O2 SAT 96 % Comments: Room air Systolic blood pressure 185 mm[Hg] Comments: Patien t Position: Sitting; Cuff Location: Left Arm; Cuff Size: Standard Diastolic blood pressure 73 mm[Hg] Comments: Patie nt Position: Sitting; Cuff Location: Left Arm; Cuff Size: Standard Weight 172 lb Body height 65 in Body mass index (BMI) [Ratio] 28.62 kg/m2 Body surface area Derived from formula 1.86 m2 :56 Comments: rechec k bp 167/71 Body temperature 97.8 f Comments: Method: Or al Heart Rate 66 /min Comments: Pattern: R egular Respiratory rate 19 /min Comments: Pattern: U nlabored O2 SAT 95 % Comments: Room air Systolic blood pressure 191 mm[Hg] Comments: Patien t Position: Sitting; Cuff Location: Left Arm; Cuff Size: Standard Diastolic blood pressure 91 mm[Hg] Comments: Patie nt Position: Sitting; Cuff Location: Left Arm; Cuff Size: Standard Weight 174 lb Body height 65 in Body mass index (BMI) [Ratio] 28.95 kg/m2 Body surface area Derived from formula 1.86 m2 :17 Body temperature 98.3 f Comments: Meth od: Oral Heart Rate 56 /min Comments: Pattern: R egular Respiratory rate 19 /min Comments: Pattern: U nlabored O2 SAT 98 % Comments: Room air Systolic blood pressure 194 mm[Hg] Comments: Patien t Position: Sitting; Cuff Location: Left Arm; Cuff Size: Standard Diastolic blood pressure 93 mm[Hg] Comments: Patie nt Position: Sitting; Cuff Location: Left Arm; Cuff Size: Standard Weight 174 lb Body height 65 in Body mass index (BMI) [Ratio] 28.95 kg/m2 Body surface area Derived from formula 1.86 m2 :03 Body temperature 98.5 f Comments: Metho d: Oral Heart Rate 59 /min Comments: Pattern: R egular Respiratory rate 19 /min Comments: Pattern: U nlabored O2 SAT 97 % Comments: Room air Systolic blood pressure 203 mm[Hg] Comments: Patien t Position: Sitting; Cuff Location: Left Arm; Cuff Size: Standard Diastolic blood pressure 85 mm[Hg] Comments: Patie nt Position: Sitting; Cuff Location: Left Arm; Cuff Size: Standard Weight 171 lb Body height 65 in Body mass index (BMI) [Ratio] 28.46 kg/m2 Body surface area Derived from formula 1.85 m2 :47 Body temperature 98.1 f Comments: Metho d: Oral Heart Rate 57 /min Comments: Pattern: R egular Respiratory rate 18 /min Comments: Pattern: U nlabored O2 SAT 94 % Comments: Room air Systolic blood pressure 196 mm[Hg] Comments: Patien t Position: Sitting; Cuff Location: Left Arm; Cuff Size: Standard Diastolic blood pressure 81 mm[Hg] Comments: Patie nt Position: Sitting; Cuff Location: Left Arm; Cuff Size: Standard Weight 165 lb Body height 65 in Body mass index (BMI) [Ratio] 27.46 kg/m2 Body surface area Derived from formula 1.82 m2 :55 Body temperature 97.9 f Comments: Metho d: Oral Heart Rate 61 /min Comments: Pattern: R egular Respiratory rate 19 /min Comments: Pattern: U nlabored O2 SAT 98 % Comments: Room air Systolic blood pressure 197 mm[Hg] Comments: Patien t Position: Sitting; Cuff Location: Left Arm; Cuff Size: Standard Diastolic blood pressure 93 mm[Hg] Comments: Patie nt Position: Sitting; Cuff Location: Left Arm; Cuff Size: Standard Weight 162 lb Body height 65 in Body mass index (BMI) [Ratio] 26.96 kg/m2 Body surface area Derived from formula 1.81 m2 :44 Body temperature 97.1 f Comments: Meth od: Oral Heart Rate 66 /min Comments: Pattern: R egular Respiratory rate 19 /min Comments: Pattern: U nlabored O2 SAT 98 % Comments: Room air Systolic blood pressure 167 mm[Hg] Comments: Patien t Position: Sitting; Cuff Location: Left Arm; Cuff Size: Standard Diastolic blood pressure 66 mm[Hg] Comments: Patie nt Position: Sitting; Cuff Location: Left Arm; Cuff Size: Standard Weight 154 lb Body height 65 in Body mass index (BMI) [Ratio] 25.63 kg/m2 Body surface area Derived from formula 1.77 m2 :56 Body temperature 97.3 f Comments: Metho d: Oral Heart Rate 63 /min Comments: Pattern: R egular Respiratory rate 19 /min Comments: Pattern: U nlabored O2 SAT 99 % Comments: Room air Systolic blood pressure 198 mm[Hg] Comments: Patien t Position: Sitting; Cuff Location: Left Arm; Cuff Size: Standard Diastolic blood pressure 93 mm[Hg] Comments: Patie nt Position: Sitting; Cuff Location: Left Arm; Cuff Size: Standard Weight 141 lb Body height 65 in Body mass index (BMI) [Ratio] 23.46 kg/m2 Body surface area Derived from formula 1.71 m2 :28 Body temperature 97.4 f Comments: Meth od: Oral Heart Rate 66 /min Comments: Pattern: R egular Respiratory rate 19 /min Comments: Pattern: U nlabored O2 SAT 99 % Comments: Room air Systolic blood pressure 185 mm[Hg] Comments: Patien t Position: Sitting; Cuff Location: Left Arm; Cuff Size: Standard Diastolic blood pressure 80 mm[Hg] Comments: Patie nt Position: Sitting; Cuff Location: Left Arm; Cuff Size: Standard Weight 143 lb Body height 65 in Body mass index (BMI) [Ratio] 23.80 kg/m2 Body surface area Derived from formula 1.72 m2 :06 Body temperature 97.3 f Comments: Metho d: Oral Heart Rate 54 /min Comments: Pattern: R egular Respiratory rate 19 /min Comments: Pattern: U nlabored O2 SAT 99 % Comments: Room air Systolic blood pressure 195 mm[Hg] Comments: Patien t Position: Sitting; Cuff Location: Left Arm; Cuff Size: Standard Diastolic blood pressure 84 mm[Hg] Comments: Patie nt Position: Sitting; Cuff Location: Left Arm; Cuff Size: Standard Weight 145 lb Body height 65 in Body mass index (BMI) [Ratio] 24.13 kg/m2 Body surface area Derived from formula 1.73 m2 :51 Body temperature 98.1 f Comments: Meth od: Oral Heart Rate 63 /min Comments: Pattern: R egular Respiratory rate 19 /min Comments: Pattern: U nlabored O2 SAT 98 % Comments: Room air Systolic blood pressure 155 mm[Hg] Comments: Patien t Position: Sitting; Cuff Location: Left Arm; Cuff Size: Standard Diastolic blood pressure 94 mm[Hg] Comments: Patie nt Position: Sitting; Cuff Location: Left Arm; Cuff Size: Standard Weight 143 lb Body height 65 in Body mass index (BMI) [Ratio] 23.80 kg/m2 Body surface area Derived from formula 1.72 m2 :52 Body temperature 98 f Comments: Meth od: Oral Heart Rate 50 /min Comments: Pattern: R egular Respiratory rate 18 /min Comments: Pattern: U nlabored O2 SAT 97 % Comments: Room air Weight 143.3 lb Body height 65 in Body mass index (BMI) [Ratio] 23.85 kg/m2 Body surface area Derived from formula 1.72 m2 :23 Body temperature 97 f Comments: Meth od: Oral Heart Rate 71 /min Comments: Pattern: R egular Respiratory rate 19 /min Comments: Pattern: U nlabored O2 SAT 100 % Comments: Room air Systolic blood pressure 133 mm[Hg] Comments: Patien t Position: Sitting; Cuff Location: Left Arm; Cuff Size: Standard Diastolic blood pressure 73 mm[Hg] Comments: Patie nt Position: Sitting; Cuff Location: Left Arm; Cuff Size: Standard Weight 145 lb Body height 65 in Body mass index (BMI) [Ratio] 24.13 kg/m2 Body surface area Derived from formula 1.73 m2 :42 Body temperature 98.2 f Comments: Metho d: Oral Heart Rate 63 /min Comments: Pattern: R egular Respiratory rate 18 /min Comments: Pattern: U nlabored O2 SAT 100 % Comments: Room air Systolic blood pressure 162 mm[Hg] Comments: Patien t Position: Sitting; Cuff Location: Right Arm; Cuff Size: Standard Diastolic blood pressure 81 mm[Hg] Comments: Patie nt Position: Sitting; Cuff Location: Right Arm; Cuff Size: Standard Weight 143.3 lb Body height 65 in Body mass index (BMI) [Ratio] 23.85 kg/m2 Body surface area Derived from formula 1.72 m2 :59 Body temperature 97 f Comments: Metho d: Oral Heart Rate 57 /min Comments: Pattern: R egular Respiratory rate 19 /min Comments: Pattern: U nlabored O2 SAT 99 % Comments: Room air Systolic blood pressure 204 mm[Hg] Comments: Patien t Position: Sitting; Cuff Location: Left Arm; Cuff Size: Standard Diastolic blood pressure 83 mm[Hg] Comments: Patie nt Position: Sitting; Cuff Location: Left Arm; Cuff Size: Standard Weight 144 lb Body height 65 in Body mass index (BMI) [Ratio] 23.96 kg/m2 Body surface area Derived from formula 1.72 m2 :06 Body temperature 97.5 f Comments: Meth od: Oral Heart Rate 61 /min Comments: Pattern: R egular Respiratory rate 19 /min Comments: Pattern: U nlabored O2 SAT 99 % Comments: Room air Systolic blood pressure 170 mm[Hg] Comments: Patien t Position: Sitting; Cuff Location: Left Arm; Cuff Size: Standard Diastolic blood pressure 82 mm[Hg] Comments: Patie nt Position: Sitting; Cuff Location: Left Arm; Cuff Size: Standard Weight 144 lb Body height 65 in Body mass index (BMI) [Ratio] 23.96 kg/m2 Body surface area Derived from formula 1.72 m2 :02 Comments: Clonid ine 0.1 mg tab given po at 9:00 am9:15 am B/P rechecked after 15 min was 164/829:30 am B/P rechecked at 152/8410:00am B/ P rechecked at 124/68 Heart Rate 66 /min Comments: Pattern: R egular Respiratory rate 18 /min Comments: Pattern: U nlabored O2 SAT 100 % Comments: Room air Systolic blood pressure 194 mm[Hg] Comments: Patien t Position: Sitting; Cuff Location: Left Arm; Cuff Size: Standard Diastolic blood pressure 82 mm[Hg] Comments: Patie nt Position: Sitting; Cuff Location: Left Arm; Cuff Size: Standard :18 Body temperature 97.3 f Comments: Metho d: Oral Heart Rate 48 /min Comments: Pattern: R egular Respiratory rate 19 /min Comments: Pattern: U nlabored O2 SAT 99 % Comments: Room air Systolic blood pressure 137 mm[Hg] Comments: Patien t Position: Sitting; Cuff Location: Left Arm; Cuff Size: Standard Diastolic blood pressure 74 mm[Hg] Comments: Patie nt Position: Sitting; Cuff Location: Left Arm; Cuff Size: Standard Weight 142 lb Body height 65 in Body mass index (BMI) [Ratio] 23.63 kg/m2 Body surface area Derived from formula 1.71 m2 :59 Body temperature 96.8 f Comments: Meth od: Oral Heart Rate 64 /min Comments: Pattern: R egular Respiratory rate 19 /min Comments: Pattern: U nlabored O2 SAT 96 % Comments: Room air Weight 134 lb Body height 65 in Body mass index (BMI) [Ratio] 22.30 kg/m2 Body surface area Derived from formula 1.67 m2 :06 Body temperature 97.4 f Comments: Metho d: Oral Heart Rate 62 /min Comments: Pattern: R egular Respiratory rate 19 /min Comments: Pattern: U nlabored O2 SAT 95 % Comments: Room air Systolic blood pressure 133 mm[Hg] Comments: Patien t Position: Sitting; Cuff Location: Left Arm; Cuff Size: Standard Diastolic blood pressure 84 mm[Hg] Comments: Patie nt Position: Sitting; Cuff Location: Left Arm; Cuff Size: Standard Weight 144 lb Body height 65 in Body mass index (BMI) [Ratio] 23.96 kg/m2 Body surface area Derived from formula 1.72 m2 :28 Body temperature 97.4 f Comments: Meth od: Oral Heart Rate 50 /min Comments: Pattern: R egular Respiratory rate 18 /min Comments: Pattern: U nlabored O2 SAT 100 % Comments: Room air Systolic blood pressure 172 mm[Hg] Comments: Patien t Position: Sitting; Cuff Location: Left Arm; Cuff Size: Standard Diastolic blood pressure 82 mm[Hg] Comments: Patie nt Position: Sitting; Cuff Location: Left Arm; Cuff Size: Standard Weight 140 lb Body height 65 in Body mass index (BMI) [Ratio] 23.30 kg/m2 Body surface area Derived from formula 1.70 m2 :00 Body temperature 97.2 f Comments: Meth od: Oral Heart Rate 62 /min Comments: Pattern: R egular Respiratory rate 18 /min Comments: Pattern: U nlabored O2 SAT 98 % Comments: Room air Systolic blood pressure 114 mm[Hg] Comments: Patien t Position: Sitting; Cuff Location: Left Arm; Cuff Size: Standard Diastolic blood pressure 65 mm[Hg] Comments: Patie nt Position: Sitting; Cuff Location: Left Arm; Cuff Size: Standard Weight 141 lb :49 Body temperature 97 f Comments: Metho d: Oral Heart Rate 54 /min Comments: Pattern: R egular Respiratory rate 18 /min Comments: Pattern: U nlabored O2 SAT 98 % Comments: Room air Systolic blood pressure 170 mm[Hg] Comments: Patien t Position: Sitting; Cuff Location: Left Arm; Cuff Size: Standard Diastolic blood pressure 94 mm[Hg] Comments: Patie nt Position: Sitting; Cuff Location: Left Arm; Cuff Size: Standard Weight 138 lb Body height 65 in Body mass index (BMI) [Ratio] 22.96 kg/m2 Body surface area Derived from formula 1.69 m2 :53 Body temperature 97.6 f Comments: Metho d: Oral Heart Rate 57 /min Comments: Pattern: R egular Respiratory rate 18 /min Comments: Pattern: U nlabored O2 SAT 98 % Comments: Room air Systolic blood pressure 163 mm[Hg] Comments: Patien t Position: Sitting; Cuff Location: Left Arm; Cuff Size: Standard Diastolic blood pressure 82 mm[Hg] Comments: Patie nt Position: Sitting; Cuff Location: Left Arm; Cuff Size: Standard Weight 150 lb Body height 65 in Body mass index (BMI) [Ratio] 24.96 kg/m2 Body surface area Derived from formula 1.75 m2 :36 Body temperature 97.1 f Comments: Metho d: Oral Heart Rate 55 /min Comments: Pattern: R egular Respiratory rate 18 /min Comments: Pattern: U nlabored O2 SAT 97 % Comments: Room air Systolic blood pressure 160 mm[Hg] Comments: Patien t Position: Sitting; Cuff Location: Left Arm; Cuff Size: Standard Diastolic blood pressure 74 mm[Hg] Comments: Patie nt Position: Sitting; Cuff Location: Left Arm; Cuff Size: Standard Weight 145 lb Body height 65 in Body mass index (BMI) [Ratio] 24.13 kg/m2 Body surface area Derived from formula 1.73 m2 [id number] Body temperature 96.8 f Comments: Meth od: Oral Respiratory rate 18 /min Comments: Pattern: U nlabored O2 SAT 99 % Comments: Room air Systolic blood pressure 180 mm[Hg] Comments: Patien t Position: Sitting; Cuff Location: Left Arm; Cuff Size: Standard Diastolic blood pressure 82 mm[Hg] Comments: Patie nt Position: Sitting; Cuff Location: Left Arm; Cuff Size: Standard Weight 147 lb Body height 65 in Body mass index (BMI) [Ratio] 24.46 kg/m2 Body surface area Derived from formula 1.74 m2 Results Date Description Value Details :47 GLUCOSE FS* (60554) Comments: 153 in off ice not fasting; 152 GLUCOSE FS* 152 mg/dL (Abnormal) Range: 70 - 110 [id number] HGB A1C (18287) Comments: 7.4% today HEMOGLOBIN GLYCLATED (HGB 7.4 % (Abnormal) Rang e: 4.6 - 7.1 A1C) [id number] HEMOGLOBIN GLYCLATED (HGB 8.6 % (Normal) Comme nts: 8.6%; [employer]: JASMINE A1C) Range: 4.6-7.1 Comments: 1.000; 0.0 %;NGSP [id number] HGB A1C (27032) HEMOGLOBIN GLYCLATED (HGB 8.2 % (Normal) Range: 4.6 - 7.1 A1C) Comments: Contro l line present 30-Sep-2019 HEMOGLOBIN GLYCLATED (HGB 7.6 % (Abnormal) Comm ents: [facility]) Range: 4.6-7.1 Comments: 1.000; 0.0 %;NGSP [id number] HEMOGLOBIN GLYCLATED (HGB 8.3 % (Abnormal) Comm ents: A1C is 8.3 on visit today on Humalog mix 75/25 BID and Metformin daily; [facility]) Range: 4.6-7.1 Comments: 1.000; 0.0 %;NGSP 02-Jun-2020 HEMOGLOBIN GLYCLATED (HGB 7.4 % (Abnormal) Comm ents: Location Name: [facility]: A1C) Range: 4.6-7.1 Comments: 1.000; 0.0 %;NGSP 10-Oct-2020 HEMOGLOBIN GLYCLATED (HGB 7.9 % (Abnormal) Comm ents: Location Name: [facility]: A1C) Range: 4.6-7.1 Comments: 1.000; 0.0 %;NGSP 21-Mar-2021 HEMOGLOBIN GLYCLATED (HGB 7.2 % (Abnormal) Comm ents: 03-21-2021 A1C is 7.2 today in office; Location Name: [facility]: A1C) Range: 4.6-7.1 Comments: 1.000; 0.0 %;NGSP Plan of Care Name Dates Details Instructions Follow up if no improvement or if symptoms worsen Start: May-2021 Instruction Type: Provider Instructions for Treatment Indication: HTN, goal below 130/80 Follow up in 1 month Start: 06-May-2021 Instruction Type: Provider Instructions for Treatment Indication: HTN, goal below 130/80 Follow up after consult DR Gtz'/Cardiology Start: Instruction Type: Provider Instructions for Treatment Indication: Bradycardia Follow up if no improvement or if symptoms worsen Start: May-2021 Instruction Type: Provider Instructions for Treatment Indication: Hospital discharge follow-up Follow up -Call or Make appt after diagnostic tests t o review results. Start: 21-Mar-2021 Instruction Type: Provider Instructions for Treatment Indication: Difficulty swallowing liquids Follow up in 1 month or sooner if needed Start: 21-Mar-2021 Instruction Type: Provider Instructions for Treatment Indication: Lumbar spondylolysis Dysphagia Start: 21-Mar-2021 Instruction Type: P atient Education Indication: Difficulty swallowing liquids Smoking Counseling Education Start: 21-Mar-2021 Instructio n Type: Patient Education Indication: Allergic rhinitis with postnasal drip Follow up -Pt's daughter will Call after diagnostic t ests to review results. Start: 10-Oct-2020 Instruction Type: Provider Instructions for Treatment Indication: Other hyperlipidemia Follow up -Call or Make appt after diagnostic tests t o review results. Start: 10-Oct-2020 Instruction Type: Provider Instructions for Treatment Indication: Type 2 diabetes mellitus with hemoglobin A1c goa l of 7.0%-8.0% Follow up in 3 months Start: 10-Oct-2020 Instruction Type: Provider Instructions for Treatment Indication: Type 2 diabetes mellitus with hemoglobin A1c goa l of 7.0%-8.0% Allergic Rhinitis *: allergic rhinitis Start: 10-Oct-2020 Instruction Type: Patient Education Indication: Allergic rhinitis with postnasal drip Follow up if no improvement or if sympto ms worsen. Patient instructed to go to the ER or [facility]. Start: 09-Feb-2020 Instruction Type: Provider Instructions for Treatment Indication: HTN, goal below 130/80 Follow up in 1 month Start: 09-Feb-2020 Instruction Type: Provider Instructions for Treatment Indication: HTN, goal below 130/80 Alzheimer's Disease *: memory loss Start: 09-Feb-2020 Inst ruction Type: Patient Education Indication: Memory loss Follow up if no improvement or if symptoms worsen Start: Instruction Type: Provider Instructions for Treatment Indication: HTN, goal below 130/80 Follow-up after evaluation by interior design consultant Dr Roblero Start : 12-Jan-2020 Instruction Type: Provider Instructions for Treatment Indication: Type 2 diabetes mellitus with hemoglobin A1c goa l of 7.0%-8.0% Diabetes: Counting Carbohydrates Meal Plan: diabetes diet S tart: 12-Jan-2020 Instruction Type: Patient Education Indication: Type 2 diabetes mellitus with hemoglobin A1c goa l of 7.0%-8.0% Dietary Approaches to Stop Hypertension (The DASH Diet ): blood pressure Start: 12-Jan-2020 Instruction Type: Patient Education Indication: HTN, goal below 130/80 Follow up in 2 weeks Start: 04-Jan-2020 Instruction Type: Provider Instructions for Treatment 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 Patient instructed to go to the ER or [facility]. Start: 07-Dec-2019 Instruction Type: Provider Instructions for Treatment Indication: Inspiratory wheeze on examination Follow up in 2 weeks Start: 07-Dec-2019 Instruction Type: Provider Instructions for Treatment Indication: Inspiratory wheeze on examination Follow up -Call or Make appt after diag nostic tests to review results of CXR and labs. Start: 07-Dec-2019 Instruction Type: Provider Instructions for Treatment Indication: Inspiratory wheeze on examination Cough: bronchitis Start: 07-Dec-2019 Instruction Type: P atient Education Indication: Inspiratory wheeze on examination Asthma: Brief Version *: wheezing Start: 07-Dec-2019 Instr uction Type: Patient Education Indication: Inspiratory wheeze on examination Opioid Risks Start: 30-Sep-2019 Instruction Type: P atient Education Indication: Encounter for monitoring opioid maintenance ther apy Follow up in 3 months Start: 30-Sep-2019 Instruction Type: Provider Instructions for Treatment Indication: Encounter for monitoring opioid maintenance ther apy Follow up in 3 months Start: 10-Apr-2019 Instruction Type: Provider Instructions for Treatment Indication: Vitamin D deficiency Follow up in 1 month or sooner if needed Start: 23-Jan-2019 Instruction Type: Provider Instructions for Treatment Indication: Type 2 diabetes mellitus with hemoglobin A1c goa l of 7.0%-8.0% Follow up in 3 months Start: 13-Nov-2018 Instruction Type: Provider Instructions for Treatment Indication: Encounter for monitoring opioid maintenance ther apy Blood Glucose Test: type 2 diabetes mellitus Start: 2018 Instruction Type: Patient Education Indication: Type 2 diabetes mellitus with hemoglobin A1c goa l of 7.0%-8.0% Follow up in 3 months Start: 18-Aug-2018 Instruction Type: Provider Instructions for Treatment Indication: Encounter for monitoring opioid maintenance ther apy Follow up in 3 months Start: 14-May-2018 Instruction Type: Provider Instructions for Treatment Indication: Other hyperlipidemia Follow up in 2 weeks for fasting labs Start: 14-May-2018 I nstruction Type: Provider Instructions for Treatment Indication: Other hyperlipidemia Choosing a Dentist: dental care Start: 18-Nov-2017 Instruc tion Type: Patient Education Indication: Insulin-requiring or dependent type II diabetes mellitus Follow up in 3 months Start: 18-Nov-2017 Instruction Type: Provider Instructions for Treatment Indication: Vitamin D deficiency Follow up in 2 months Start: 30-Aug-2017 Instruction Type: Provider Instructions for Treatment Indication: HTN, goal below 130/80 Follow up in 3 months Start: 21-Aug-2017 Instruction Type: Provider Instructions for Treatment Indication: Deficiency of other vitamins Osteoarthritis *: arthritis Start: 21-Aug-2017 Instruction Type: Patient Education Indication: Primary generalized (osteo)arthritis Follow up in 1 month Start: 21-May-2017 Instruction Type: Provider Instructions for Treatment Indication: Primary generalized (osteo)arthritis Alternative or Complementary Ways to Control Pain: baylee n control Start: 21-May-2017 Instruction Type: Patient Education Indication: Primary generalized (osteo)arthritis Follow up in 3 months Start: 15-Feb-2017 Instruction Type: Provider Instructions for Treatment Indication: Deficiency of other vitamins Mammogram *: breast Start: 15-Feb-2017 Instruction Type: P atient Education Indication: Screening mammogram, encounter for Follow up in 1 month Start: 16-Jan-2017 Instruction Type: Provider Instructions for Treatment Indication: Memory loss Follow up in 1 week for review of BS log. Start: 7 Instruction Type: Provider Instructions for Treatment Indication: Memory loss Calcium *: vitamin d Start: 16-Jan-2017 Instruction Type: Patient Education Indication: Vitamin D deficiency, unspecified Follow up if no improvement or if symptoms worsen Start: Instruction Type: Provider Instructions for Treatment Indication: Nocturnal muscle spasm Follow up in 1 month Start: 27-Dec-2016 Instruction Type: Provider Instructions for Treatment Indication: Nocturnal muscle spasm Follow up -Call or Make appt after diagnostic tests t o review results. Start: 27-Dec-2016 Instruction Type: Provider Instructions for Treatment Indication: Nocturnal muscle spasm Follow up in 1 month or sooner if needed Start: 26-Aug-2016 Instruction Type: Provider Instructions for Treatment Indication: Uncontrolled type 2 diabetes mellitus with hyper glycemia Diabetes: Foot Ulcers and Infections *: feet Start: 2016 Instruction Type: Patient Education Indication: Uncontrolled type 2 diabetes mellitus with hyper glycemia Diabetic Retinopathy *: diabetes Start: 26-Aug-2016 Instru ction Type: Patient Education Indication: Uncontrolled type 2 diabetes mellitus with hyper glycemia Follow up if no improvement or if symptoms worsen Start: Instruction Type: Provider Instructions for Treatment Indication: Vaginitis Follow up in 2 weeks Start: 21-Jul-2016 Instruction Type: Provider Instructions for Treatment Indication: Vaginitis Atrophic Vaginitis: atrophic vaginitis Start: 21-Jul-2016 Instruction Type: Patient Education Indication: Vaginitis Follow up if no improvement or if symptoms worsen Start: Sep-2013 Instruction Type: Provider Instructions for Treatment Indication: Persistent lymphocytosis Follow up - Make appt after diagnostic tests Start: 014 Instruction Type: Provider Instructions for Treatment Indication: Persistent lymphocytosis Follow up in 3 weeks Start: 17-Aug-2013 Instruction Type: Provider Instructions for Treatment Indication: Hernia, inguinal Groin (Inguinal) Hernia Repair: inguinal hernia Start: Instruction Type: Patient Education Indication: Hernia, inguinal Follow up in 1 month or sooner if needed Start: 01-Jun-2013 Instruction Type: Provider Instructions for Treatment Indication: HTN (hypertension) Follow up - Keep appt as scheduled after having eye surgery Start: 01-Jun-2013 Instruction Type: Provider Instructions for Treatment Indication: HTN (hypertension) Follow up if no improvement or if symptoms worsen she is to go to the ER Start: 27-May-2013 Instruction Type: Provider Instructions for Treatment Indication: Bradycardia Follow up in 3 days Start: 27-May-2013 Instruction Type: P tiffanievicristiano Instructions for Treatment Indication: Bradycardia Follow up if no improvement or if symptoms worsen go t o the ER Start: 22-Apr-2013 Instruction Type: Provider Instructions for Treatment Indication: Low back pain radiating to left leg Follow up in 3 days Start: 22-Apr-2013 Instruction Type: P rovider Instructions for Treatment Indication: Low back pain radiating to left leg Follow up in 2 weeks or sooner as needed Start: 27-Feb-2013 Instruction Type: Provider Instructions for Treatment Indication: Rash and nonspecific skin eruption Follow up in 1 month Start: 08-Dec-2012 Instruction Type: Provider Instructions for Treatment Indication: AV block, 1st degree Follow up if no improvement or if symptoms worsen Start: Instruction Type: Provider Instructions for Treatment Indication: AV block, 1st degree Follow up as needed Start: 07-Nov-2012 Instruction Type: P tiffanievider Instructions for Treatment Indication: DM (diabetes mellitus), type 2 Follow up in 1 month Start: 07-Nov-2012 Instruction Type: Provider Instructions for Treatment Indication: DM (diabetes mellitus), type 2 Follow up - Make appt after diagnostic tests Start: 013 Instruction Type: Provider Instructions for Treatment Indication: Irregular cardiac rhythm Follow up in 1 month Start: 01-Aug-2012 Instruction Type: Provider Instructions for Treatment Indication: Memory deficits Follow up in 1 month Start: 01-Aug-2012 Instruction Type: Provider Instructions for Treatment Indication: DM (diabetes mellitus), type 2 Follow up as needed Start: 08-Apr-2012 Instruction Type: P tiffanievider Instructions for Treatment 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 (Renamed from [facility] (mild cognitive impairment with memory loss)) Follow up in 1 month Start: 08-Apr-2012 Instruction Type: Provider Instructions for Treatment 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 (Renamed from [facility] (mild cognitive impairment with memory loss)) Follow up - To make appt after appt w/ s pecialist family requests appointment with neurologist in [place] Start: 08-Apr-2012 Instruction Type: Provid er Instructions for Treatment 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 (Renamed from [facility] (mild cognitive impairment with memory loss)) Follow up in 1 month Start: 23-Oct-2011 Instruction Type: Provider Instructions for Treatment Indication: DM (diabetes mellitus), type 2 Planned Observations IRON ([id number])Indication: Deficiency of other vitamins On: Request FOLIC ACID SERUM ([id number])Indication: Deficiency of othe r vitamins On: Request VITAMIN B-12 (CYANOCOBALAMIN) ([id number])Indication: Defic iency of other vitamins On: Request MICROALBUMIN URINE QUANT ([id number])Indicati on: Type 2 diabetes mellitus with hemoglobin A1c goal of 7.0%-8.0% On: :18 Request LIPID PANEL ([id number])Indication: Other hyperlipidemia On: :17 Request METABOLIC PANEL, COMPREHENSIVE ([id number])Indication: HTN, goal below 130/80 On: :17 Request CBC w/differential ([id number])Indication: HTN, goal below 130/80 On: :16 Request MICROALBUMIN URINE QUANT ([id number])Indication: Difficulty swallowing liquids On: :05 Request H.PYLORI* ([id number])Indication: Difficulty swallowing liquids O n: :04 Request LIPID PANEL ([id number])Indication: Difficulty swallowing l iquids On: :04 Request CBC w/differential ([id number])Indication: Difficulty swall owing liquids On: :03 Request CMP ([id number])Indication: Difficulty swallowing liquids On: :03 Request THYROXINE FREEIndication: Type 2 diabete s mellitus with hemoglobin A1c goal of 7.0%-8.0% On: :40 Request TSH (THYROID STIMULATING HORMONE)Indicat ion: Type 2 diabetes mellitus with hemoglobin A1c goal of 7.0%-8.0% On: :40 Request TT4 (THYROXINE TOTAL)Indication: Type 2 diabetes mellitus with hemoglobin A1c goal of 7.0%-8.0% On: :40 Request CBC, PLATELETS & AUT DIFF ([id number])Indication: HTN, goal below 130/80 On: :40 Request LIPID PANEL ([id number])Indication: Other hyperlipidemia On: :40 Request CRP ([id number])Indication: Type 2 diabetes m ellitus with hemoglobin A1c goal of 7.0%-8.0% On: :38 Request CMP ([id number])Indication: Type 2 diabetes m ellitus with hemoglobin A1c goal of 7.0%-8.0% On: :38 Request RENAL FUNCTION PANEL ([id number])Indication: Hyperkalemia On: :50 Request BLOOD GAS PH PCO2 PO2 H/CO2 (ABG) ([id number])Indication: C OPD with asthma On: :28 Request HEPATIC FUNCTION PANEL ([id number])Indication: Other hyperl ipidemia On: :32 Request LIPID PANEL ([id number])Indication: Other hyperlipidemia On: :32 Request CBC, PLATELETS & AUT DIFF ([id number])Indication: HTN, goal below 130/80 On: :32 Request RENAL FUNCTION PANEL ([id number])Indication: HTN, goal belo w 130/80 On: :32 Request Vitamin D 25 Hydroxy ([id number])Indication: Vitamin D deficiency On: :32 Request BNAT ([id number])Indication: Inspiratory wheeze on examination On : :32 Request CRP ([id number])Indication: Inspiratory wheeze on examination On: :32 Request TT4 (THYROXINE TOTAL) ([id number])Indication: Type 2 diabetes mellitus with hemoglobin A1c goal of 7.0%-8.0% On: :32 Request TSH (THYROID STIMULATING HORMONE) ([id number] )Indication: Type 2 diabetes mellitus with hemoglobin A1c goal of 7.0%-8.0% On: :32 Request MICROALBUMIN URINE QUANT ([id number])Indicati on: Type 2 diabetes mellitus with hemoglobin A1c goal of 7.0%-8.0% On: :32 Request HGB A1C ([id number])Indication: Type 2 diabet es mellitus with hemoglobin A1c goal of 7.0%-8.0% On: :32 Request CBC, PLATELETS & AUT DIFF ([id number])Indication: HTN, goal below 130/80 On: 31-Yvf-785330:25 Request URIC ACID BLOOD ([id number])Indication: Lumbar spondylolysis On: :23 Request MICROALBUMIN URINE QUANT ([id number])Indicati on: Type 2 diabetes mellitus with hemoglobin A1c goal of 7.0%-8.0% On: :23 Request Vitamin D 25 Hydroxy ([id number])Indication: Vitamin D defi ciency On: :23 Request CMP ([id number])Indication: Type 2 diabetes m ellitus with hemoglobin A1c goal of 7.0%-8.0% On: 41-Dvj-198259:22 Request LIPID PANEL ([id number])Indication: Type 2 di abetes mellitus with hemoglobin A1c goal of 7.0%-8.0% On: 67-Kwn-800026:22 Request HGB A1C ([id number])Indication: Uncontrolled type 2 diabetes mellitus with hyperglycemia On: 31-Dec-20189:21 Request MICROALBUMIN URINE QUANT ([id number])Indicati on: Type 2 diabetes mellitus with hemoglobin A1c goal of 7.0%-8.0% On: 30-Jtl-689213:53 Request LIPID PANEL ([id number])Indication: Other hyperlipidemia On: 15:53 Request CMP ([id number])Indication: HTN, goal below 130/80 On: 915:53 Request CBC, PLATELETS & AUT DIFF ([id number])Indication: HTN, goal below 130/80 On: 13-Dqr-966960:53 Request MICROALBUMIN URINE QUANT ([id number])Indicati on: Type 2 diabetes mellitus with hemoglobin A1c goal of 7.0%-8.0% On: 02-Zje-939966:03 Request LIPID PANEL ([id number])Indication: HTN, goal below 130/80 On: 16:03 Request CMP ([id number])Indication: HTN, goal below 130/80 On: 916:03 Request CBC, PLATELETS & AUT DIFF ([id number])Indication: HTN, goal below 130/80 On: 05-Elf-352308:03 Request Vitamin D 25 Hydroxy ([id number])Indication: Deficiency of other vitamins On: 96-Him-886777:15 Request LIPID PANEL ([id number])Indication: Insulin-r equiring or dependent type II diabetes mellitus On: 51-Jog-397773:15 Request MICROALBUMIN URINE QUANT ([id number])Indicati on: Insulin-requiring or dependent type II diabetes mellitus On: 29-Wui-768734:15 Request CMP ([id number])Indication: HTN, goal below 130/80 On: 816:14 Request CBC, PLATELETS & AUT DIFF ([id number])Indication: HTN, goal below 130/80 On: 25-Irp-398726:14 Request Vitamin D 25 Hydroxy ([id number])Indication: Vitamin D defi ciency On: 64-Yyl-149832:03 Request MICROALBUMIN URINE QUANT ([id number])Indicati on: Insulin-requiring or dependent type II diabetes mellitus On: 00-Fuy-284619:02 Request CMP ([id number])Indication: HTN, goal below 130/80 On: 811:02 Request CBC, PLATELETS & AUT DIFF ([id number])Indication: HTN, goal below 130/80 On: 38-Xoc-611771:02 Request Vitamin D 25 Hydroxy ([id number])Indication: Deficiency of other vitamins On: 89-Pry-294558:22 Request LIPID PANEL ([id number])Indication: Other hyperlipidemia On: 10:21 Request MICROALBUMIN URINE QUANT ([id number])Indicati on: Insulin-requiring or dependent type II diabetes mellitus On: 64-Ycs-885599:21 Request HGB A1C ([id number])Indication: Insulin-requi ring or dependent type II diabetes mellitus On: 92-Mgf-255601:21 Request CMP ([id number])Indication: Insulin-requiring or dependent type II diabetes mellitus On: 98-Qjd-809646:21 Request CBC, PLATELETS & AUT DIFF ([id number])Indicat ion: Insulin-requiring or dependent type II diabetes mellitus On: 23-Axv-480635:21 Request Vitamin D 25 Hydroxy ([id number])Indication: Deficiency of other vitamins On: :02 Request LIPID PANEL ([id number])Indication: Other hyperlipidemia On: :02 Request MICROALBUMIN URINE QUANT ([id number])Indicati on: Insulin-requiring or dependent type II diabetes mellitus On: : Request HGB A1C ([id number])Indication: Insulin-requi ring or dependent type II diabetes mellitus On: :01 Request CMP ([id number])Indication: HTN, goal below 130/80 On: 4:01 Request CBC, PLATELETS & AUT DIFF ([id number])Indication: HTN, goal below 130/80 On: :01 Request MICROALBUMIN URINE QUANT ([id number])Indicati on: Uncontrolled type 2 diabetes mellitus with hyperglycemia On: 64-Oln-524994:26 Request Vitamin D 25 Hydroxy ([id number])Indication: Vitamin D defi ciency On: 67-Fae-020587:26 Request HGB A1C ([id number])Indication: Uncontrolled type 2 diabetes mellitus with hyperglycemia On: 30-Iru-048951:25 Request LIPID PANEL ([id number])Indication: Dyslipidemia On: 0:25 Request CBC, PLATELETS & AUT DIFF ([id number])Indication: HTN (hype rtension) On: 75-Djj-968697:25 Request CMP ([id number])Indication: HTN (hypertension) On: 54-Qdr-902474: 25 Request MICROALBUMIN URINE QUANT ([id number])Indicati on: Uncontrolled type 2 diabetes mellitus with hyperglycemia On: 48-Xna-129472:51 Request HGB A1C ([id number])Indication: Uncontrolled type 2 diabetes mellitus with hyperglycemia On: 74-Yxj-821838:50 Request Vitamin D 25 Hydroxy ([id number])Indication: Vitamin D defi ciency On: 85-Zac-300052:50 Request CBC, PLATELETS & AUT DIFF ([id number])Indication: HTN (hype rtension) On: 70-Lil-477428:50 Request BMP ([id number])Indication: HTN (hypertension) On: 83-Uff-008953: 50 Request HEPATIC FUNCTION PANEL ([id number])Indication: Dyslipidemia On: 2 9-Rse-489704:50 Request LIPID PANEL ([id number])Indication: Dyslipidemia On: 1:50 Request AMIRA (ANTINUCLEAR ANTIBODY) ([id number])Indica tion: Low back pain radiating to left leg On: 75-Usm-850709:38 Request SED RATE ERYTHROCYTE ([id number])Indication: Low back pain radiating to left leg On: 72-Led-492577:38 Request Retic Count ([id number])Indication: Fatigue On: 72-Vzi-789615:37 Request MICROALBUMIN URINE QUANT ([id number])Indication: Low back p ain radiating to left leg On: 90-Qky-672672:37 Request THYROXINE FREEIndication: Fatigue On: :[address] TSH (THYROID STIMULATING HORMONE)Indication: Fatigue On: :37 Request TT4 (THYROXINE TOTAL)Indication: Fatigue On: :3 7 Request HGB A1C ([id number])Indication: DM (diabetes mellitus), type 2 On : :37 Request CMP ([id number])Indication: HTN (hypertension) On: 50-Pey-793838: 37 Request CBC, PLATELETS & AUT DIFF ([id number])Indication: Fatigue On: Jul-201610:37 Request Vitamin D 25 Hydroxy ([id number])Indication: Vitamin D defi ciency On: 61-Fta-062677:13 Request Vitamin D 25 Hydroxy ([id number])Indication: CRF (chronic r enal failure) On: 5-Raj-263234:40 Request VITAMIN B-12 (CYANOCOBALAMIN) ([id number])Indication: Dementia On : :40 Request CBC, PLATELETS & AUT DIFF ([id number])Indication: HTN (hype rtension) On: :39 Request MICROALBUMIN URINE QUANT ([id number])Indication: HTN (hyper tension) On: :38 Request LIPID PANEL ([id number])Indication: Dyslipidemia On: :38 Request HGB A1C ([id number])Indication: DM (diabetes mellitus), type 2 On : :38 Request Pap, Conventional ([id number])Indication: Healthcare mainte nance On: 00-Siy-750923:00 Request Comments: Pt is post menopausal, no hormone replacement, no abnormal paps in the past.Sample is cervical/endocervical URINALYSIS W MICROSCOPY ([id number])Indication: Dysuria On: :33 Request TSH (THYROID STIMULATING HORMONE) ([id number])Indication: D yslipidemia On: : Request LIPID PANEL ([id number])Indication: Dyslipidemia On: : Request MICROALBUMIN URINE QUANT ([id number])Indication: HTN (hyper tension) On: : Request CMP ([id number])Indication: DM (diabetes mellitus), type 2 On: : Request HGB A1C ([id number])Indication: DM (diabetes mellitus), type 2 On : : Request MAGNESIUM ([id number])Indication: Muscle spasm On: :4 1 Request TSH (THYROID STIMULATING HORMONE) ([id number])Indication: F atigue On: :41 Request CBC, PLATELETS & AUT DIFF ([id number])Indication: Fatigue On: :41 Request LIPID PANEL ([id number])Indication: Dyslipidemia On: :41 Request MICROALBUMIN URINE QUANT ([id number])Indication: HTN (hyper tension) On: :41 Request CMP ([id number])Indication: DM (diabetes mellitus), type 2 On: :40 Request HGB A1C ([id number])Indication: DM (diabetes mellitus), type 2 On : :40 Request MICROALBUMIN URINE QUANT ([id number])Indication: HTN (hyper tension) On: 82-Xox-528648:10 Request LIPID PANEL ([id number])Indication: Dyslipidemia On: 6:09 Request CMP ([id number])Indication: HTN (hypertension) On: 84-Kly-300440: 09 Request CMP ([id number])Indication: DM (diabetes mellitus), type 2 On: 16:09 Request HGB A1C ([id number])Indication: DM (diabetes mellitus), type 2 On : 35-Ikz-226694:09 Request MICROALBUMIN URINE QUANT ([id number])Indication: DM (diabet es mellitus), type 2 On: 1-Zqd-665302:56 Request CBC, PLATELETS & AUT DIFF ([id number])Indication: HTN (hype rtension) On: 4-Ybg-864997:53 Request LIPID PANEL ([id number])Indication: Dyslipidemia On: :52 Request HGB A1C ([id number])Indication: DM (diabetes mellitus), type 2 On : :52 Request CMP ([id number])Indication: HTN (hypertension) On: :5 2 Request LIPID PANEL ([id number])Indication: Dyslipidemia On: :16 Request Comments: Fast 10 to 12 hours night before the test CBC, PLATELETS & AUT DIFF ([id number])Indication: Persisten t lymphocytosis On: :13 Request Comments: Do a manua l differential and then please send slide for pathological review if lymphocyte count is elevated or neutrophil count is low!!!! RENAL FUNCTION PANEL ([id number])Indication: HTN (hypertension) O n: :12 Request HEPATIC FUNCTION PANEL ([id number])Indication: Dyslipidemia On: :12 Request HGB A1C ([id number])Indication: DM (diabetes mellitus), type 2 On : 6-Klm-431813:12 Request CMP ([id number])Indication: Fatigue On: 20-Gaj-526460:25 Request CBC, PLATELETS & AUT DIFF ([id number])Indication: Fatigue On: :24 Request CBC ([id number])Indication: Preoperative examination On: 15:29 Request CMPIndication: Preoperative examination On: 6-Gsl-599334:29 Request HGB A1C ([id number])Indication: Preoperative clearance On: :46 Request RENAL FUNCTION PANEL ([id number])Indication: Preoperative c learance On: :46 Request HEPATIC FUNCTION PANEL ([id number])Indication: Preoperative clearance On: :46 Request THYROXINE FREEIndication: Preoperative clearance On: :46 Request TSH (THYROID STIMULATING HORMONE)Indication: Preoperat stephan clearance On: :46 Request TT4 (THYROXINE TOTAL)Indication: Preoperative clearance On: :46 Request CBC, PLATELETS & AUT DIFF ([id number])Indication: Preoperat stephan clearance On: :46 Request RAST ([facility]piratory Allergy P bijan) ([id number])Indication: Rash and nonspecific skin eruption On: 82-Cdy-623171:04 Request Sed Rate ([id number])Indication: Rash and nonspecific skin eruption On: 86-Pkt-861234:04 Request RENAL FUNCTION PANEL ([id number])Indication: HTN (hypertension) O n: :03 Request HEPATIC FUNCTION PANEL ([id number])Indication: Dyslipidemia On: :03 Request LIPID PANEL ([id number])Indication: Dyslipidemia On: 0:03 Request MICROALBUMIN URINE QUANT ([id number])Indication: DM (diabet es mellitus), type 2 On: :03 Request HGB A1C ([id number])Indication: DM (diabetes mellitus), type 2 On : 11-Ypi-165609:03 Request RENAL FUNCTION PANEL ([id number])Indication: HTN (hypertension) O n: 80-Pdo-723810:28 Request HGB A1C ([id number])Indication: DM (diabetes mellitus), type 2 On : 59-Mua-345848:27 Request TSH (THYROID STIMULATING HORMONE) ([id number])Indication: I rregular cardiac rhythm On: 95-Plc-307278:06 Request HGB A1C ([id number])Indication: DM (diabetes mellitus), type 2 On : 23-Zcb-188238:43 Request CBC, PLATELETS & AUT DIFF ([id number])Indication: HTN (hype rtension) On: 61-Knr-531745:40 Request RENAL FUNCTION PANEL ([id number])Indication: HTN (hypertension) O n: :40 Request TSH (THYROID STIMULATING HORMONE) ([id number] )Indication: DM (diabetes mellitus), type 2 On: :49 Request CBC, PLATELETS & AUT DIFF ([id number])Indication: DM (diabe maykel mellitus), type 2 On: :49 Request RENAL FUNCTION PANEL ([id number])Indication: HTN (hypertension) O n: :49 Request LIPID PANEL ([id number])Indication: Dyslipidemia On: : 49 Request HEPATIC FUNCTION PANEL ([id number])Indication: Dyslipidemia On: :49 Request HGB A1C ([id number])Indication: DM (diabetes mellitus), type 2 On : :49 Request GLUCOSE FS* ([id number])Indication: DM (diabetes mellitus), type 2 On: :58 Request Comments: 94 RENAL FUNCTION PANEL ([id number])Indication: HTN (hypertension) O n: :42 Request HEPATIC FUNCTION PANEL ([id number])Indication: Dyslipidemia On: 09-Mar-201211:42 Request LIPID PANEL ([id number])Indication: Dyslipidemia On: 1:42 Request CBC, PLATELETS & AUT DIFF ([id number])Indication: DM (diabe maykel mellitus), type 2 On: :42 Request HGB A1C ([id number])Indication: DM (diabetes mellitus), type 2 On : :42 Request GLUCOSE FS* ([id number])Indication: Unspecified Diagnosis On: Sep-201115:07 Request Comments: BLOOD SUGA R IN OFFICE 264 Planned Procedures HOLTER MONITORING WITH INTERPRETATION On: 06-May-2021 In tent ([id number])By: Grace Lopez NP MRI BRAIN W/O CONTRAST ([id number])By: John On: 06-May-2021 In tent Grace SARAVIA Comments: CKD stage 4, limit dyes/contrast PATIENT SCREENED FOR TOBACCO USE AND On: 04-May-2021 Int ent IDENTIFIED A TOBACCO NON-USER ([id number])By: Ana Goodman SCREENING FOR TOBACCO USE ([id number])By: On: 04-May-2021 Int ent Ana Goodman SPEECH THERAPY REHABILITATION On: 27-Mar-2021 Intent ASSESSMENT FOR DYSPHAGIA ([id number])By: Grace Lopez NP MODIFIED BARIUM SWALLOW ([id number])By: On: 27-Mar-2021 Inten t Grace Lopez NP BARIUM SWALLOW AND UPPER On: 21-Mar-2021 Intent GASTROINTESTINAL SERIES WITH SMALL BOWEL FOLLOW THROUGH ([id number])By: Grace Lopez NP CHEST XRAY, PA & LATERAL ([id number])By: On: 21-Mar-2021 Inte nt Grace Lopez NP SMOKING CESSATION COUNSELING FOR 3 TO On: 21-Mar-[address] [facility] 10 MINUTES ([id number])By: Kaylynn Wilde COLLECTION OF BLOOD GAS SPECIMEN FROM On: 29-Jan-[address] [facility] RADIAL ARTERY ([id number])By: Kaylynn Wilde COMPLETE PFT WITH ABG ([id number])By: John On: 04-Jan-2020 Int ent Grace SARAVIA NEBULIZER ADMINISTRATION SET On: 07-Dec-2019 Intent ([id number])By: Grace Lopez NP CHEST XRAY, PA & LATERAL ([id number])By: On: 07-Dec-2019 Inte nt Grace Lopez NP EKG ([id number])By: Rosa Ocampo NP On: 30-Aug-2017 Int ent Mesfin EEG AWAKE AND ASLEEP ([id number])By: Earl On: 28-Feb-[address] [facility], Harsh W MRI BRAIN W/O CONTRAST ([id number])By: On: 28-Feb-2017 Intent Elliott [facility], Harsh W DIGITAL SCREENING MAMMOGRAPHY OF BOTH On: 15-Feb-[address] [facility] BREASTS ([id number])By: Rosa Ocampo NP DIAB SHOE FOR DENSITY INSERT On: 17-Jan-2017 Intent ([id number])By: Rosa Ocampo NP BONE DENSITY STUDY OF AXIAL SKELETON On: 14-Jan-2017 Int ent ([id number])By: Emely Martin BONE DENSITY STUDY OF AXIAL SKELETON On: 14-Jan-2017 Int ent ([id number])By: Emely Martin BONE DEXA SCAN ([id number])By: Jona On: 07-Jan-2017 Intent Emely COMPLETE ELECTROMYOGRAPHY (EMG) WITH On: 31-Dec-2016 Int ent NERVE CONDUCTION STUDIES OF EACH EXTREMITY ([id number])By: Emely Martin NERVE CONDUCTION STUDY OF 7 TO 8 On: 31-Dec-2016 Intent NERVES ([id number])By: Emely Martin ELECTROMYOGRAPHY OF TWO EXTREMITIES On: 27-Dec-2016 Inte nt WITHOUT THEN WITH RELATED PARASPINAL AREAS ([id number])By: Grace Lopez NP NERVE CONDUCTION STUDY OF 9 TO 10 On: 27-Dec-2016 Intent NERVES ([id number])By: Grace Lopez NP JARETT ([id number])By: Grace Lopez NP On: 27-Dec-2016 Intent CHRISTIAN ([id number])By: Grace Lopez NP On: 27-Dec-2016 Intent BONE DEXA SCAN ([id number])By: John SARAVIA, On: 27-Dec-2016 Intent Grace Burns MAMMOGRAM SCREENING ([id number])By: Jorge On: 07-Apr-2015 In tent ANP-Tatum Burns MAMMOGRAM SCREENING ([id number])By: Andry, On: 28-Jul-2014 In tent Kaylynn XR KNEE COMPLETE ([id number])By: On: 15-Jun-2013 Intent Aron,RN,MSN,INS, Rae Comments: Left knee XR KNEE RIGHT COMPLETE ([id number])By: On: 11-Jun-2013 Intent Tatum Brady ULTRASOUND OF RIGHT GROIN ([id number])By: On: 11-Jun-2013 Int ent Tatum Brady Comments: poss. esperanza zavala inguinal hernia ADMINISTRATION OF ORAL MEDICATION IN On: 01-Jun-2013 Int ent OFFICE ([id number])By: Grace Lopez NP Comme nts: Pt was given Clonidine 0.1 mg at 9:00 am EKG ([id number])By: Grace Lopez NP On: 01-Jun-2013 Intent Comments: Sent to Dr Vazquez for review EKG ([id number])By: Grace Lopez NP On: 01-Jun-2013 Intent EKG ([id number])By: Daquan Penny MD On: 27-May-2013 Int ent XR HIP LEFT COMPLETE ([id number])By: John On: 22-Apr-2013 Inte Grace fuentes NP X-RAY EXAM OF LOWER SPINE ([id number])By: On: 22-Apr-2013 Int ent Grace Lopez NP BLOOD GLUCOSE TEST STRIPS ([id number])By: On: 18-Mar-2013 Int ent Grace Lopez NP LANCETS, PER BOX OF 100 ([id number])By: On: 18-Mar-2013 Rafian t Grace Lopez NP SPRING-POWERED DEVICE FOR LANCET, On: 18-Mar-2013 Intent EACH ([id number])By: Grace Lopez NP EKG ([id number])By: Grace Lopez NP On: 08-Dec-2012 Intent EKG ([id number])By: Grace Lopez NP On: 07-Nov-2012 Intent HOLTER MONITOR: ECG MONIT/REPRT UP TO On: 01-Aug-2012 In tent 48 HRS ([id number])By: Grace Lopez NP Comme nts: pt with irregular heart beat, bradycardia, hx of DM,HTN, DYSLIPIDEMIA EKG ([id number])By: Grace Lopez NP On: 01-Aug-[address] HEAD/BRAIN W/O & W/DYE ([id number])By: On: 08-Apr-2012 Int ent Grace Lopez NP Comments: without co ntrast and with if indicated and renal function is adequate BLOOD GLUCOSE TEST OR REAGENT STRIPS On: 19-Mar-2012 Int ent FOR HOME BLOOD GLUCOSE MONITOR, PER Comm ents: QS for monitoring blood sugar TID due to DM and poor glucose control, at least # 90 monthly with PRN refills 50 STRIPS (Special coverage instructions apply. See CIM: 60-11) ([id number])By: Grace Lopez NP EKG ([id number])By: Grace Lopez NP On: 23-Oct-2011 Intent Planned Supplies NEBULIZER, WITH COMPRESSOR ([id number])By: Grace Lopez NP On: 07-Dec-2019 Intent Instructions Name Dates Details Verified Opioid Agreement Start: 04-May-2021 Instruction T ype: Provider Instructions for Treatment Indication: Hospital discharge follow-up Follow [facility] Start: 04-May-2021 Instruction Type: P atient Education Indication: Hospital discharge follow-up How to Access Health Information Online using Patient Portal and [employer] Apps Start: 04-May-2021 Instruction Type: Patient Education Indication: Hospital discharge follow-up Verified Opioid Agreement Start: 28-Apr-2021 Instruction T ype: Provider Instructions for Treatment Indication: Lumbar spondylolysis PDMP information checked Start: 28-Apr-2021 Instruction Ty pe: Provider Instructions for Treatment Indication: Lumbar spondylolysis Follow [facility] Start: 19-Apr-2021 Instruction Type: P atient Education Indication: Pre-operative clearance How to Access Health Information Online using Patient Open[employer] and [employer] Apps Start: 19-Apr-2021 Instruction Type: Patient Education Indication: Pre-operative clearance Verified Opioid Agreement Start: 19-Apr-2021 Instruction T ype: Provider Instructions for Treatment Indication: Pre-operative clearance PDMP information checked Start: 21-Mar-2021 Instruction Ty pe: Provider Instructions for Treatment Indication: Lumbar spondylolysis Verified Opioid Agreement Start: 21-Mar-2021 Instruction T ype: Provider Instructions for Treatment Indication: Lumbar spondylolysis Follow [facility] Start: 21-Mar-2021 Instruction Type: P atient Education Indication: Allergic rhinitis with postnasal drip How to Access Health Information Online using Patient Portal and [employer] Apps Start: 21-Mar-2021 Instruction Type: Patient Education Indication: Allergic rhinitis with postnasal drip PDMP information checked Start: 10-Oct-2020 Instruction Ty pe: Provider Instructions for Treatment Indication: Lumbar spondylolysis Follow [facility] Start: 10-Oct-2020 Instruction Type: P atient Education Indication: Lumbar spondylolysis How to Access Health Information Online using Patient Portal and [employer] Apps Start: 10-Oct-2020 Instruction Type: Patient Education Indication: Lumbar spondylolysis Verified Opioid Agreement Start: 10-Oct-2020 Instruction T ype: Provider Instructions for Treatment Indication: Lumbar spondylolysis PDMP information checked Start: 19-Aug-2020 Instruction Ty pe: Provider Instructions for Treatment Indication: Lumbar spondylolysis Verified Opioid Agreement Start: 09-Feb-2020 Instruction T ype: Provider Instructions for Treatment Indication: Encounter for monitoring opioid maintenance ther apy PDMP information checked Start: 09-Feb-2020 Instruction Ty pe: Provider Instructions for Treatment Indication: Encounter for monitoring opioid maintenance ther apy Verified Opioid Agreement Start: 30-Sep-2019 Instruction T ype: Provider Instructions for Treatment Indication: Encounter for monitoring opioid maintenance ther apy PDMP information checked Start: 30-Sep-2019 Instruction Ty pe: Provider Instructions for Treatment Indication: Encounter for monitoring opioid maintenance ther apy Verified Opioid Agreement Start: 21-Jan-2019 Instruction T ype: Provider Instructions for Treatment Indication: Encounter for monitoring opioid maintenance ther apy PDMP information checked Start: 21-Jan-2019 Instruction Ty pe: Provider Instructions for Treatment Indication: Encounter for monitoring opioid maintenance ther apy To be scheduled for surgery Start: 03-Aug-2013 Instruction Type: Provider Instructions for Treatment Indication: Hernia, inguinal Encounters Review On: 01-Jun-2021 14:01 [facility] Annotation/Addendum On: 16-May-2021 16:03 Encounter Diagnosis: Sleep pattern disturbance End: 16:19 [facility] Office Visit On: 04-May-2021 15:30 Encounter Reason: Hospital Follow up-Wea kness - Pt is in office today for hospital follow up. Pt presented @ [facility] with Weakness and stoke-like behavior. Pt mouth was twisted and she lost use of her L hand, speech was slur End: 6-May-2021 12:24 red. Daughter stated all sx started 05/02. Pt denied pain and was A&O x3. Pt is feeling much better today. Rx Bisoprolol 5mg 1/2 in the AM and no Spirolactone 50mg last night or thi s morning. Pt was seen in the ER @ [facility] 1 07-03-[address] scan that shows at least four old cerebral infarcts large left parieto-occipital infarct, smaller old right parieto-occipital infarct, old l eft frontal and old medial inferior left temporal lobe infarcts. No new acute infarcts were noted.Her b/p was extremely elevated and her EKG showed bradycardia at 56 BPM with PVC's.She has continued wi th weakness and decreased non cdl driver in left h and since the episode. 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 Her daughter monitors her blood sugars also. Office b/p is 166/90 and she is bradyca rdic at 50 BPM.Daughter will monitor her b/p and the goal is 140-150/ 80-90 and preferrably keep less than 140/90., Cerebrovascular Accident - The last clin ic visit was 1 day(s) ago (was seen at [facility] ER for stroke like sx's with left upper extremity weakness and high B/P. Per her daughter she initially had some facia l asymmetry described as "drooping" and difficulty speaking with slurred speech.). Management changes made at the last visit include ordering test(s) (Pt had head CT and EKG and Labs at the ER. These a re reviewed and discussed with Pt and he r daughter.). Symptoms include weakness (decreased laft non cdl driver compared to the right), dysphagia (she has been having this recently and and has had speech evaluatio n.) and visual changes (Pt has been blin d for several years.), while symptoms do not include paralysis, headache or confusion. 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 Date of procedure: (no date scheduled until cleared) . There have been no problems with general anesthesia or blood/bloo End: 20-Apr-2021 11:39 d products. Note for "Preoperative evalu ation": Patient is in the office today for a surgical clearance for dental procedure. Patient's daughter is present with her today and states patient is having a ll of her teeth taken out. Daughter sta maykel that patient had labs and a chest x- ray done at [facility] in [place] within the past week. Patient has no known drug allergies.Encounter Diagnosis: Pre-operative clearance [facility] Annotation/Addendum On: 27-Mar-2021 13:02 Encounter Diagnosis: Difficulty swallowing liquids End : 27-Mar-2021 13:32 [facility] Annotation/Addendum On: 27-Mar-2021 9:11 Encounter Diagnosis: HTN, goal below 130 /80, Other hyperlipidemia, Deficiency of other vitamins, Type 2 diabetes mellitus with hemoglobin A1c goal of 7.0%-8.0% End: 27-Mar-2021 9:27 [facility] Office Visit On: 21-Mar-2021 9:30 Encounter Reason: Follow Up - Date: (03-02 Pt had first Covid vaccine 01-29-2021 and second vaccine around 03-01-2021.). Current symptoms include other. Note for " discuss consultation": Pt is here today for a follow up End: 21-Mar-2021 13:14 to get refills. Pt is feeling well toda y. Her daughter is concerned that when she drinks something she has to cough every time. She has no other complaints today. Her daughter did forget to put her Yasemin nidine patch on her after her shower thi s poncho and her Bp is up a little in the office today. Pt is not allergic to any medications., Diabetes Type II, Follow Up - The last clinic visit was 4 month(s) ago (Pt has been monitoring her FB S's daily and per her daughter it is usu ally in the range of 100 to 110 and sometime in the 90's.). Management changes made at the last visit include ordering continued her meds, monitoring glucose and continuing limiting starchy Carbs and sw eets.. Symptoms include polydipsia (daughter reports she has a cough and seems to strangle easily on liquids but does not have the same issues with solid foods.). The patient describes this as moderate in severity (her diabetes is fairly well controlled with her current meds and diet.) and unchanged. Associated symptoms include extremity pain and extremity pares thesias, while associated symptoms do no t include lower extremity ulcers, abdominal discomfort, bladder dysfunction, impaired healing, recurrent candidiasis or unexplained weight loss. Current treatment includes basal insulin (Humalog mix 75/ 25 -30 units BID,Metformin ER 500 mg at supper daily.), metformin, dyslipidemia medications (Atorvastatin) and antihypertensives (Bisoprolol, Clonidine,Amlodipine ). By report there is good compliance wi th treatment, good tolerance of treatment and good symptom control. Since diagnosis diabetes control has been unchanged. Disease complications include peripheral neuropathy, diabetic retinopathy and tere betic nephropathy, while disease complications do not include lower extremity ulceration or poor wound healing. Diabetes self management includes dietary modifica tion and aspirin use. Home glucose testi ng is done once daily. Most recent Hgb A1c was done on 03-21-2021 and the result was 7.2% % (she is given orders for lipid, CMP, and microalbumin today).Encounter Diagnosis: Lumbar spondylolysis, Allergic rhinitis with postnasal drip, D ifficulty swallowing liquids, Type 2 diabetes mellitus with hemoglobin A1c goal of 7.0%-8.0%, Flu vaccine need [facility] Office Visit On: 10-Oct-2020 9:56 Encounter Reason: Runny nose - The runny nose has been occurring in a persistent pattern for 2 weeks. The course has been constant. The runny nose is described as moderate. Note for "Runny nose": Pt is here today with he End: 10-Oct-2020 15:53 r daughter for a follow up. She is compl aining of having a runny nose X 2 weeks. Drainage is clear. Pt has been taking OTC allergy medications for it but it's not helping her. She will need her HGBA1c d one in the office today while she is her e. Her daughter reports her fasting glucose is usually around 96. She has a good appetite, but her daughter has noticed she stays in her room a lot and is nervous with outings from the home secondary to her dementia. Her daughter will take her with orders for fasting labs. She has no allergies to medications.Encounter Diagnosis: Type 2 diabetes mellitus with hemoglobin A1c goal of 7.0%-8.0%, Lumbar spondylolysis, HTN, goal below 13 0/80, Allergic rhinitis with postnasal drip, Other hyperlipidemia [facility] Med Refill On: 19-Aug-2020 15:42 Encounter Diagnosis: Lumbar spondylolysis, Diabetic ne uropathy, painful End: 19-Aug-2020 15:47 [facility] Office Visit On: 02-Jun-2020 9:58 Encounter Reason: Follow Up - Current sy mptoms include other. Note for " discuss consultation": Pt is here today for a follow up. Pt will need to get a HGBA1C done today while in the office. She will request her medicati End: 02-Jun-2020 10:23 ons as she needs them but we refill what she needs today while she is here. Pt has no allergies to medications today.Encounter Diagnosis: Type 2 diabetes mellitus with hemoglobin A1c goal of 7.0%-8.0%, HTN, goal below 130/80, Other hyperlipidemia [facility] Annotation/Addendum On: 10-Feb-2020 8:43 Encounter Diagnosis: Healthcare maintenance End: 8:45 [facility] Office Visit On: 09-Feb-2020 10:23 Encounter Reason: Memory impairment - Th e memory impairment has been occurring in a persistent pattern for years. The course has been increasing. The memory impairment is characterized as a loss of recent memory. Note fo End: 09-Feb-2020 20:59 r "Memory impairment": Pt is here today with her daughter. Her daughter is worried about her memory changes and states that she forgets things right when she tells her. Pt asks her daughter the same que stions over and over at times. She is cu rrently taking Namenda for it but her daughter thinks it needs to be increased. Pts blood pressure is good at home but when she comes here it goes up on her. Pt is not allergic to any medication. Encounter Diagnosis: Memory loss, Lumbar spondylolysis, Encounter for monitoring opioid maintenance therapy, HTN, goal below 130/80 [facility] Med Refill On: 05-Feb-2020 9:35 Encounter Diagnosis: COPD with asthma End: 05-Feb-2020 9:45 [facility] Nurse Ordered Procedures/Labs On: 29-Jan-2020 10:34 Encounter Diagnosis: SOB (shortness of breath) End: 10:39 [facility] Office Visit On: 12-Jan-2020 15:00 Encounter Reason: Follow Up - Date: (12-29 Pt had labs at her last visit with labs showing high potassium and we stopped her DEDIE-I Benazepril and decreased her high potassium foods. We encouraged strict diabetic d End: 12-Jan-2020 16:50 iet and med compliance. Her renal funct ion is worsening and her eGFR is down to 29. We sent a referral to Dr Roblero and she is scheduled to see him on 01-20-2020.Since we stopped her EDDIE her b/p higuera s increased and she is here for b/p chec k and we will add a low dose beta - stephen until she sees Dr Roblero and she may need her spironolactone dose modified also. We will reassess her renal panel and potassium today.). Current symptoms include other. Note for " discuss consultation": Pt is here today with complaints of having HTN since she stopped taking Benazepril. She states she feels dizzy at time and her BP is staying up. She has a follow up with Dr. Roblero on January 19. Her daughter is concerned about his BP staying up and is here today to discuss this. Pt has no other complaints today. She is not allergic to any medications. Encounter Diagnosis: HTN, goal below 130 /80, Type 2 diabetes mellitus with hemoglobin A1c goal of 7.0%-8.0%, Hyperkalemia [facility] Office Visit On: 04-Jan-2020 8:29 Encounter Reason: Follow Up - Current sy mptoms include cough (White clear sputum when she coughs up something.) and other. Note for " discuss consultation": Pt is here today for a follow up and review CXR results. She wi End: 04-Jan-2020 15:15 ll need to get fasting labs done while s he is here. Pt is still coughing up some clear color sputum at times. Daughter is with her today and reports, "She got better and it came right back on her." She has been taking breathing treatments TID PRN and started taking OTC cough medication. Denies sinus pressure, congestion, postnasal drip. Note: Per daughter, patient has not taken her morning medications yet due to her being unsure if she coul d give them to patient before fasting labs this morning. Pt is not allergic to any medications.Encounter Diagnosis: Type 2 diabetes mellitus with hemoglobin A1c goal of 7.0%-8.0%, Inspiratory wheeze on examination, Vitam in D deficiency, HTN, goal below 130/80, Other hyperlipidemia, COPD with asthma [facility] Office Visit On: 07-Dec-2019 10:15 Encounter Reason: Follow Up - Current sy mptoms include cough (Coughing up Thick Clear white Sputum sometimes it looks like "Spit." Pt has been on Levaquin and Prednisone recently for this.). Note for " discuss consultati End: 07-Dec-2019 17:24 on": Pt is here today to change care fro m the [place] office to our office. She is having problems with a cough she has for about 2 weeks now. She was taking medication but is done with it. Pt stays inside and doesn't go out unless she has too. Pt has a HX of diabetes and we will check her HGBA1C in the office today. Pt doesn't need any refills at this time but will request them as she needs them. She is not allergic to any medications., Cough - The last clinic visit was week(s ) ago (Pt was seen by Dr Hummel approx two weeks ago and was treated with Levaquin and Prednisone and had an MDI ordered but apparently her insurance did not cov er the MDI so she has not used it. We w ill try and get her started on neb treatments with Ipratropium and albuterol TID to see if this will get her breathing better. We will request a CXR has she has not responded to med treatments for smith tional evaluation.Baseline labs are requested and she will have these done here fasting at her next office visit.). Management changes made at the last visit incl ude adding medication (Levaquin and Pred nisone, her daughter says the prednisone caused her blood sugars to go over 200 and her A1C in office today is 8.3.). Symptoms include cough and wheezing, while symptoms do not include chills, fever, r unny nose, sore throat, pleuritic chest pain or chest pain. The cough is described as wheezy and moist. Cough onset was gradual. Onset of cough followed none (She is not aware of anything that caused he r sx's to start, as far as she knows she has not been around anyone sick.).Encounter Diagnosis: Type 2 diabetes mellitus with hemoglobin A1c goal of 7.0%-8.0%, Inspiratory wheeze on examination, Vitamin D deficiency, HTN, goal below 130/80, Other hy perlipidemia [facility] Office Visit On: 24-Nov-2019 10:15 Encounter Reason: congested. - Patient i s here for a sick visit. Patient is here for being congested, coughing up clear mucous, daughter states she does hear a wheeze every now and then. Vital signs are within normal range. Denies fevers, chills. End: 24-Nov-2019 10:32 Encounter Diagnosis: Bronchiolitis [facility] Med Refill On: 09-Nov-2019 16:35 Encounter Diagnosis: Bronchitis End: 09-Nov-2019 16:38 [facility] Office Visit On: 30-Sep-2019 13:26 Encounter Reason: Follow Up - Patient is here for a 6 month follow up. Needs refills on medications. Vital signs are within normal range. Encounter Diagnosis: Memory loss, Type 2 diabetes mellitus with hemoglobin A1c goal of 7.0%-8.0%, End: 30-Sep-2019 14:33 HTN, goal below 130/80, Lumbar spondylol ysis, Encounter for monitoring opioid maintenance therapy, Vitamin D deficiency [facility] Office Visit On: 31-Mar-2019 18:45 Encounter Reason: Follow Up - Patient ates here for follow up visit, she's accompanied by daughter and daughter states she needs refills on a few medication. Patient denies pain at this time 0/10 with no additional c End: 10-Apr-2019 1:02 oncerns voiced at this time. Patient is diabetic with last A1C on of 7.5 on 01/21.Encounter Diagnosis: Type 2 diabetes mellitus with hemoglobin A1c goal of 7.0%-8.0%, HTN, goal below 130/80, Lumbar spondylolysis, Other hyperlipidemia, Vitamin D deficiency [facility] Med Refill On: 31-Jan-2019 12:58 Encounter Diagnosis: Type 2 diabetes maxim cardoso with hemoglobin A1c goal of 7.0%-8.0% End: 31-Jan-2019 13:02 [facility] Office Visit On: 21-Jan-2019 17:30 Encounter Reason: Follow Up - Note for " discuss consultation": Patient here today for follow up visit, she has been seen in the past by Alicia Ocampo and is transitioning care. Daughter states she needs refills on almost a End: 23-Jan-2019 22:34 ll medications including pain medication . Patient states legs pain but unable to assess level on pain 0/10, daughter states mom has dementia with mostly night time pain in hips and complains of hands cramping. Patient is diabetic with last A1C on 08/18 of 8.2%, will collect new A1C today.Encounter Diagnosis: Type 2 diabetes mellitus with hemoglobin A1c goal of 7.0%-8.0%, Encounter for monitoring opioid maintenance therapy, Lumbar spondylolysis, Vitamin D deficiency, Memory loss, HTN, goal below 130 /80, Other hyperlipidemia [facility] Office Visit On: 13-Nov-2018 15:00 Encounter Reason: 3 month check-up - Opal rhodes is here today as 3 month follow-up. Daughter states she is just here for check-up with medication refill request - daughter states she feels like her mother has gained to much End: 13-Nov-2018 16:09 weight and it is affecting the way she breathes. (Says she breathes heavily) No other complaints/concerns voiced at this time.Encounter Diagnosis: HTN, goal below 130/80, Other hyperlipidemia, Environmental and seasonal allergies, Type 2 diabetes mellitus with hemoglobin A1c goal of 7.0%-8.0%, Dementia in Alzheimer's disease, Lumbar spondylolysis, Encounter for monitoring opioid maintenance therapy [facility] Office Visit On: 18-Aug-2018 15:00 Encounter Reason: med refill - Patient i s here today for med refill and one month f/u. Patient daughter is with her today and she states that her mothers blood pressure and blood sugar have been under control at home. Encounter Diagnosis: End: 18-Aug-2018 17:06 HTN, goal below 130/80, Type 2 diabetes mellitus with hemoglobin A1c goal of 7.0%-8.0%, Other hyperlipidemia, Environmental and seasonal allergies, Dementia in Alzheimer's disease, Lumbar spondylolysis, Encounter for monitoring opioid maintenance therapy [facility] Nurse Ordered Procedures/Labs On: 18-Aug-2018 9:21 Encounter Diagnosis: Uncontrolled type 2 diabetes gabriella itus with hyperglycemia End: 31-Dec-2018 9:22 [facility] No Charge Visit On: 28-May-2018 9:22 Encounter Diagnosis: Other hyperlipidemia End: 2017 11:28 [facility] Office Visit On: 14-May-2018 15:26 Encounter Reason: Follow Up - Note for " discuss consultation": Patient here for follow up. Daughter states she's been doing well with no new issues. She's needing refills on several medications. Her last A1C on 11/18 wa End: 14-May-2018 16:35 s 7.4. Her blood pressure is elevated t sharath with daughter stating she just changed patch about 30 minutes before arriving here. Daughter reports no bp log at home. Patient denies pain 0/10 at this time.Encounter Diagnosis: Dementia in Alzheimer's disease, HTN, go al below 130/80, Insulin-requiring or dependent type II diabetes mellitus, Other allergic rhinitis, Deficiency of other vitamins, Low back pain radiating to left leg, Other hyperlipidemia [facility] Med Refill On: 01-May-2018 15:14 Encounter Diagnosis: Dementia in Alzheimer's disease E nd: 01-May-2018 15:18 [facility] Office Visit On: 18-Nov-2017 10:01 Encounter Reason: Follow Up - Note for " discuss consultation": Patient is here today for a follow-up visit. Patient has no complaints at this time. Patient needs medication refills.Encounter Diagnosis: HTN, goal below 130/80, Other hyperlipidemia, End: 18-Nov-2017 11:46 Insulin-requiring or dependent type II d iabetes mellitus, Primary generalized (osteo)arthritis, Vitamin D deficiency [facility] Phone Encounter On: 06-Nov-2017 9:11 Encounter Diagnosis: Sinus congestion End: 06-Nov-2017 9:15 [facility] Office Visit On: 05-Nov-2017 13:16 Encounter Reason: Diabetic Foot - Note f or "Diabetic foot": pt here for diabetic shoes form completed by Aimee Diagnosis: Mild cognitive impairment with memory loss (Renamed from [employer] [facility] (mild cognitive impairment with memory loss)), End: 05-Nov-2017 14:20 Diabetic neuropathy, painful [facility] Phone Encounter On: 06-Sep-2017 10:36 Encounter Diagnosis: Vitamin D deficiency End: 018 10:40 [facility] Office Visit On: 30-Aug-2017 10:09 Encounter Reason: check-up - Patient is here today for a surgical clearance exam. Patient's daughter states she would like to discuss blood pressure medication and if she might need to change some of her medication cause End: 30-Aug-2017 13:35 her blood pressure is still elevated. P atient has no other complaints.An EKG will be done.Encounter Diagnosis: Pre-operative clearance, HTN, goal below 130/80 [facility] Office Visit On: 21-Aug-2017 9:25 Encounter Reason: Follow Up - Note for " discuss consultation": Patient is here today for a follow-up visit. Patient has no complaints at this time. Patient needs medication refills today.Encounter Diagnosis: End: 21-Aug-2017 10:35 Insulin-requiring or dependent type II d iabetes mellitus, HTN, goal below 130/80, Other hyperlipidemia, Other allergic rhinitis, Primary generalized (osteo)arthritis, Memory loss, Deficiency of other vitamins [facility] Phone Encounter On: 21-Jun-2017 10:29 Encounter Diagnosis: Dementia in Alzheimer's disease E nd: 21-Jun-2017 10:40 [facility] Office Visit On: 21-May-2017 13:32 Encounter Reason: check up - Patient is here for a check-up. Patient's daughter states she has had a dry cough with no sputum. Patient's daughter states she need medications refills. Patient's daughter wants to discuss a medication Tramadol. End: 21-May-2017 17:34 Encounter Diagnosis: Insulin-requiring o r dependent type II diabetes mellitus, HTN, goal below 130/80, Other hyperlipidemia, Deficiency of other vitamins, Memory loss, Primary generalized (osteo)arthritis [facility] Office Visit On: 28-Feb-2017 13:31 Encounter Diagnosis: Memory loss, Cognitive decline En d: 28-Feb-2017 15:26 [facility] Historical Summary On: 20-Feb-2017 10:15 [facility] End: 20-Feb-2017 10 :16 Office Visit On: 15-Feb-2017 10:03 Encounter Reason: Follow Up - Current sy mptoms include other. Note for " discuss consultation": Patient is here today for a follow up and to review her blood glucose log. Patient has a pain level of zero today. Patient d End: 15-Feb-2017 11:33 oes need medication refills today. Caleb fuentes was seen by Dr Soto and states that everything looked good and they will follow back up at the first of the year to run more tests. Patient would like to di scuss diabetic shoes today. She has been to the semiconductor lab technician and they are waiting on notes to be signed by her Primary Care Medical Doctor.Encounter Diagnosis: Medicine refill, Screening mammogram, encounter for, Decreased renal function, Other specified disorders of bone densit y and structure, other site, Insulin- requiring or dependent type II diabetes mellitus, Allergic rhinitis with postnasal drip, HTN, goal below 130/80, Deficiency of other vitamins [facility] Historical Summary On: 18-Jan-2017 9:09 [facility] End: 18-Jan-2017 9: 13 Nurse Visit On: 17-Jan-2017 11:27 Encounter Diagnosis: Diabetes type 2, uncontrolled End : 17-Jan-2017 11:32 [facility] Office Visit On: 16-Jan-2017 14:52 Encounter Reason: Diabetes Type II, Foll ow Up - Most recent Hgb A1c was done on 01/11/2017 and the result was 8.1 %. Most recent lipid testing was done on 01/11/2017 and the results included total cholesterol 111 mg/dl, LD End: 16-Jan-2017 17:02 L 40 mg/dl, HDL 57. mg/dl and TG 71 mg/d l. Note for "Follow up for diabetes type II": Pt is here today for a follow up. Pts last HGBA1C was 8.1 on 01/11/2017. She recently went and saw Dr. Penny (patsy saldaña) in [place]. She will need to dis cuss about getting an order for some Diabetic Shoes today and the order will need to be faxed over to Dr. Penny's office., Follow Up - Current symptoms include oth er. Note for " discuss consultation": Pt is here today for a follow up. Pt has her daughter with her today in the office. Pt recently has been to the eye doctor carloz Romo and will have eye laser surge ry on February 06 because she has cataracts and bleeding behind one eye. Pt daughter is concerned that patients memory is getting worse. She repeats things over and over; see things that aren't not here or people that has passed. Pt speaks of siblings and tells them out loud to "get up!" Pt wants to stay up all night and sleep during the day. She is curren poloy taking medication to help with her m speedy but it seems to not be working as much.Encounter Diagnosis: Vitamin D deficiency, unspecified, Other hyperlipidemia, Disorder of bone density and structure, unspecified, Decreased renal function, Primary generalized (osteo)arthritis, HT N, goal below 130/80, Insulin-requiring or dependent type II diabetes mellitus, Vaginal odor, Memory loss [facility] Phone Encounter On: 11-Jan-2017 11:31 Encounter Diagnosis: Deficiency of other vitamins End: 11-Jan-2017 11:37 [facility] Office Visit On: 07-Jan-2017 10:00 Encounter Diagnosis: Disorder of bone density and stru cture, unspecified End: 07-Jan-2017 10:13 [facility] Historical Summary On: 28-Dec-2016 11:40 [facility] End: 28-Dec-2016 11 :42 Office Visit On: 27-Dec-2016 9:46 Encounter Reason: Follow Up - Date: (Pt is a diabetic and per her daughter she has been monitoring her sugars and ahe has not had any low sugar events. Her last A1C was 7.8. She is eating more veggies and trying to leav End: 27-Dec-2016 17:56 e off sweets, fried foods and is using l ow fat dairy. She is encouraged to eat low fat yougurt daily for calcium and vaginal aubrey. She has a vaginal discharge with an odor.). Note for " discuss consultation": Regular visit., High blood pressure - The symptoms have been associated with heart disease (She has not seen Dr Vazquez for over a year.), kidney disease, obesity and visual disturbances, while the symptoms have not been associated with anxiety, chest pain, dys pnea, edema, headache or syncope. Note for "High blood pressure": 171/79 just put on rx patch this morning. She is out of her medicine and needs refills., Leg Cramps, Nocturnal - The last clinic visit was 3 month(s) ago. Management changes made at the last visit include ordering Pt has been on Robaxin for back spasm and muscle cramps.. Symptoms include re current muscle spasms, exertional leg cr amps (sometimes leg cramps when walking but she does continue to walk quite a bit.) and nocturnal leg cramps. Symptoms are located in the right calf and right thi gh. The patient describes the pain as du ll and aching (cramping with muscle spasms). Onset was gradual. The symptoms occur frequently. Note for "Nocturnal leg cramps": leg cramp and has pain in the mornings when she wakes up.Encounter Diagnosis: HTN (hypertension), Dyslipidemia, Vitami n D deficiency, Diabetes type 2, uncontrolled, Nocturnal muscle spasm, Vaginal discharge [facility] Med Refill On: 01-Oct-2016 10:43 Encounter Diagnosis: HTN (hypertension) End: 10:44 [facility] Office Visit On: 21-Aug-2016 10:28 Encounter Reason: Follow Up - Current sy mptoms include other. Note for " discuss consultation": Pt is here today for a follow up. Pt seems to be feeling well and has no voiced complaints. Pt daughter said she is having t End: 26-Aug-2016 11:59 he odor again coming from her private ar ea and wanted a refill on the cream incerta. This was medication was sent in yesterday. Pt has no other complaints today.Encounter Diagnosis: Diabetes type 2, uncontrolled, Dyslipidemia, HTN (hypertension), Vitamin D deficiency [facility] Office Visit On: 19-Jul-2016 9:48 Encounter Reason: Follow Up - Current sy mptoms include joint pains. Note for " discuss consultation": Pt is here today for a follow up. She is complaining of having a lot of joint pain throughout her body. She has been p End: 21-Jul-2016 13:08 ut on another medication for her kidney protection and HTN. Her daughter is complaining of her mom having a fishy odor again. She has had this problem in the past and was put on mediation that cleared it up. Pt will need medication refills today. Encounter Diagnosis: Low back pain radia ting to left leg, Fatigue, Memory deficits, HTN (hypertension), DM (diabetes mellitus), type 2, Dyslipidemia, Vaginitis [facility] Med Refill On: 08-May-2016 17:02 Encounter Diagnosis: DM (diabetes mellitus), type 2 En d: 08-May-2016 17:06 [facility] Med Refill On: 19-Apr-2016 14:12 Encounter Diagnosis: DM (diabetes mellitus), type 2 En d: 19-Apr-2016 14:17 [facility] Office Visit On: 20-Mar-2016 13:29 Encounter Reason: Cough - The cough has been occurring for 2 weeks. The course has been constant. The cough is characterized as dry. The cough occurs all the time. The symptoms have been associated with wheezing. Note fo End: 20-Mar-2016 15:50 r "Cough": Pt is here today for a follow up. She is complaining of coughing X 2 weeks. Her daughter has been giving her cough drops and peppermint to keep her from coughing so much but she is afraid of it running her blood sugar up. Pt has no other complaints today. She will need refills while she is here today.Encounter Diagnosis: DM (diabetes mellitus), type 2, URI (upper respiratory infection), Vitamin D deficiency, Low back pain radiating to left leg, Dys lipidemia, HTN (hypertension), Memory deficits [facility] Annotation/Addendum On: 25-Jan-2016 9:50 Encounter Diagnosis: Vitamin D deficiency End: 2015 9:51 [facility] Historical Summary On: 09-Jan-2016 14:50 [facility] End: 09-Jan-2016 14 :55 Office Visit On: 09-Jan-2016 10:23 Encounter Reason: Follow Up - Current sy mptoms include other. Note for " discuss consultation": Pt is here today for a follow up. Pt has been put on a another medication for her blood pressure but her daughter forgot to End: 10-Jan-2016 16:39 bring it. Pt hasn't been able to get her lab work today because she forgot to fast but will get it done in the morning. She needs refills today while she is here. Pt has no complaints today and feels well.Encounter Diagnosis: Medicine refill, HTN (hypertension), Dyslipidemia, DM (di abetes mellitus), type 2, Low back pain radiating to left leg, Memory deficits [facility] Office Visit On: 02-Dec-2015 10:56 Encounter Reason: Follow Up - Current sy mptoms include other. Note for " discuss consultation": Pt is here today for a follow up. The daughter is complaining of her mother having an odor even though she has tried everyth End: 02-Dec-2015 12:49 ing. She has a bad smelly discharge cons tantly.Her daughter is concerned with this. Pt has a HX of diabetes. She is also concerned that her mom is getting Dementia or Alzheimer's Disease. Pt is tail ing to herself, see things and people th at is not there, argues with her daughter more than she use to. She will need refills today while she is here., Memory impairment - The memory impairmen t has been occurring in a persistent pattern for months. The course has been increasing. The memory impairment is characterized as a loss of recent memory., Vaginal discharge - The discharge has be en occurring for months and has been constant. The discharge has been light (Pts daughter states she has a pers. odorous vaginal discharge. ).Encounter Diagnosis: DM (diabetes mellitus), type 2, Dyslipidemia, HTN (hypertension), Dementia, CRF (chron ic renal failure), Memory deficits, Low back pain radiating to left leg, Seasonal allergies, Vaginal discharge [facility] Office Visit On: 10-Aug-2015 10:11 Encounter Reason: Pap Smear - Pap smear: Date: (It's been about 3 years the daughter if he daughter remembers well.). Patient does not exercise. Note for "Pap Smear": Pt is here today for a pap smear. She is feeling well End: 14-Aug-2015 21:35 and has no complaints. Daughter is conc erned with her blood pressure being high even though she takes her medications. Encounter Diagnosis: Healthcare maintenance [facility] Office Visit On: 04-Aug-2015 14:52 Encounter Reason: Follow Up - Current sy mptoms include other (Cramps). Note for " discuss consultation": Pt is here today for a follow up. She is complaining of having cramps if different areas of her body right on. Pts End: 11-Aug-2015 14:58 daughter is concerned with her mother h aving a smelly discharge. She thinks she may have a yeast infection. She has just noticed this. Pt has no other complaints today.Encounter Diagnosis: DM (diabetes mellitus), type 2, HTN (hypertension), Dyslipidemia, Dysuria, Vaginal discharge [facility] Office Visit On: 07-Apr-2015 14:46 Encounter Reason: Follow Up - Current sy mptoms include other. Note for " discuss consultation": Pt is here today for a follow up and to get medication refills today. Pt hasn't had her flu AND pneumonia injection and woul End: 08-Apr-2015 13:03 d like to get them today while she is he re. She will need to get all of her medications refilled today also. Pt is feeling well and has no complaints today.Encounter Diagnosis: Healthcare maintenance, Dyslipidemia, HTN (hypertension) (401.9), DM (diabetes mellitus), type 2 (250.00), Memory deficits (780.93), Seasonal allergies, OA (osteoarthritis) [facility] Nurse Visit On: 10-Dec-2014 9:16 Encounter Diagnosis: Cough End: 10-Dec-2014 9:24 [facility] Office Visit On: 30-Nov-2014 14:48 Encounter Reason: Cough - The cough has been occurring for 1 month. The course has been constant. The cough is characterized as dry. The cough occurs all the time. Note for "Cough": Pt is here today with complaints of co End: 06-Dec-2014 13:23 ughing. She has been doing this for abou t 1 month on and off. She is coughing time she wakes up and when she goes to bed. She has been tkaing OTC medication but nothing seems to be helping her., Leg pain - The leg pain has been occurri ng for 1 month. The symptoms are described as a dull ache and are moderate in severity. The symptoms occur at rest and on exertion. There is involvement of the l ower extremities (both). Relief is provi ded by massage. Note for "Leg pain": Pt is here today with complaints of having leg pain in both legs. This has been going on for about a month or longer. Pt like s for them to be rubbed down with Humberto-[place] y and a massage always helps with the pain.Encounter Diagnosis: DM (diabetes mellitus), type 2 (250.00), HTN (hypertension) (401.9), Dyslipidemia, Muscle spasm, Fatigue, URI (upper respiratory infection), Mild cognitive impairment with memory lo ss (Renamed from Amnestic MCI (mild cognitive impairment with memory loss)) [facility] Med Refill On: 10-Aug-2014 14:51 Encounter Diagnosis: DM (diabetes mellitus), type 2 (2 50.00) End: 10-Aug-2014 14:55 [facility] Med Refill On: 10-Aug-2014 8:18 Encounter Diagnosis: DM (diabetes mellitus), type 2 (2 50.00) End: 10-Aug-2014 8:19 [facility] Annotation/Addendum On: 22-Jun-2014 11:28 Encounter Diagnosis: URI (upper respiratory infection) End: 22-Jun-2014 11:32 [facility] Office Visit On: 15-Jun-2014 15:44 Encounter Reason: Follow Up - Current sy mptoms include cough. Note for " discuss consultation": Pt is here today for a follow up. She is complaining of having a dry cough X 2 weeks. Pt is taking OTC coughing medication w End: 17-Jun-2014 17:13 ith DM in it. She would like to Arianna kenney today if she could for it. Pt is also having cramps in both of her legs for a while now. Pt has been eating bananas and takes K+ pills also. She has no other complaints today.Encounter Diagnosis: DM (diabetes mellitus), type 2 (250.00), HTN (hypertension) (401.9), Dyslipidemia, Muscle spasm [facility] Med Refill On: 04-Feb-2014 10:02 Encounter Diagnosis: DM (diabetes mellitus), type 2 (2 50.00) End: 04-Feb-2014 10:04 [facility] Office Visit On: 01-Feb-2014 14:51 Encounter Reason: Follow Up - Current sy mptoms include other. Note for " discuss consultation": Pt is here today for a follow up. She is complaining of some back pain and would like to get a RX for a back brace if this w End: 04-Feb-2014 13:33 ill help her. Pt will need to get her me dication refills today also while she is here. Other than her back she is feeling fine and has no other complaints.Encounter Diagnosis: HTN (hypertension) (401.9), DM (diabetes mellitus), type 2 (250.00), Low back pain radiating to left leg, Mem ory deficits (780.93), Dyslipidemia, Seasonal allergies [facility] Office Visit On: 24-Nov-2013 13:28 Encounter Reason: Itching - The itching has been occurring for 2 days. The course has been recurrent. The itching is moderate. The itching occurs all the time. The itching is located on the upper extremities and the lowe End: 25-Nov-2013 17:20 r extremities. The symptoms are relieved by antihistamines. Note for "Itching": Pt is here today with complaints of having some itching all over. This has been here before and now has came back. Pt stat es it was really bad but its some what b emily. Her daughter has been putting some cream that was prescribed before on it and its helped some but still has her itching.Encounter Diagnosis: HTN (hypertension) (401.9), DM (diabetes mellitus), type 2 (250.00), Dermatitis [facility] Office Visit On: 06-Oct-2013 14:06 Encounter Reason: Follow Up - Current sy mptoms include other. Note for " discuss consultation": Pt is here today for a follow up. Her daughter states her blood pressure is staying up even though she is taking her medicat End: 09-Oct-2013 8:22 ion correctly every day. Daughter is wan ting to talk with you and see if she needs some depression medication. She states pt likes to do everything for herself and when she can't she gets aggravated. Pt has no other complaints today., Diabetes Type II, Follow Up - The last linic visit was 1 month(s) ago. Symptoms include fatigue (Pt has had abnormal WBC's on last two CBC's with increasing lymphocytes and decreasing neutrophils and c /o's of fatigue.). The patient describes this as moderate in severity and unchanged. Associated symptoms do not include extremity numbness, extremity paresthesias, lower extremity ulcers, abdominal disc omfort, bladder dysfunction or impaired healing. The patient has had hypoglycemia symptoms most recently on 0 (Pt has had no low blood sugar events.). Current treatment includes basal insulin, bolus ins ulin, dyslipidemia medications, antihype rtensives and EDDIE inhibitor. By report there is good compliance with treatment, good tolerance of treatment and fair symptom control. Most recent lipid testing wa s done on 05/27/13 (Had HGB A1C and was 8.6). Pertinent medical history includes hypertension, dyslipidemia and cataract(s) (pt has had to have several surgical eye procedures for retinal problems.), wh ile pertinent medical history does not i nclude amputation, carotid occlusive disease, stroke, recurrent skin infections or tobacco abuse. Risk factors include inactivity and thiazide diuretic use. The f heather lifestyle modifications have be en recommended: diabetic diet and close monitoring of feet.Encounter Diagnosis: DM (diabetes mellitus), type 2 (250.00), Dyslipidemia, HTN (hypertension) (401.9), Memory deficits (780.93), Low back pain radiating to left leg, Sea varsha allergies, Persistent lymphocytosis [facility] Office Visit On: 17-Aug-2013 15:45 Encounter Reason: Follow Up - Follow up visit with no current symptoms. Note for " discuss consultation": Pt is here today for a follow up. She recently went and had some lab work done and would like to discuss all the r End: 19-Aug-2013 9:29 esults today. She states she feels a lot better and doesn't have any complaints today. Encounter Diagnosis: Fatigue [facility] Post Op On: 17-Aug-2013 14:51 Encounter Reason: Hernia Surgery Post-Op - Surgery included open right inguinal herniorrhaphy. The surgery was performed on 08-11-13.Encounter Diagnosis: Hernia, inguinal (550.90) End: 17-Aug-2013 15:31 Honorio Mcghee MD Office Visit On: 13-Aug-2013 13:23 Encounter Diagnosis: Fatigue End: 14-Aug-2013 11:39 [facility] Historical Summary On: 10-Aug-2013 18:03 Honorio Mcghee MD End: 10-Aug-2013 18:17 Historical Summary On: 05-Aug-2013 11:48 Honorio Mcghee MD End: 05-Aug-2013 19:46 Transition of Care On: 03-Aug-2013 15:29 Encounter Diagnosis: EXAMINATION, PREOPERATIVE NOS (V7 2.84) End: 03-Aug-2013 15:30 Honorio Mcghee MD Consultation On: 03-Aug-2013 14:38 Encounter Reason: Hernia, Inguinal - The hernia(s) is/are located on the right side. Onset was month(s) ago.Encounter Diagnosis: Hernia, inguinal (550.90) End: 03-Aug-2013 14:56 Honorio Mcghee MD Office Visit On: 30-Jul-2013 9:56 Encounter Reason: Cough - The cough has been occurring for 1 month. The course has been constant. The cough is characterized as dry. The cough occurs all the time. There has been no associated fever. Note for "Cough": Pt End: 31-Jul-2013 13:59 is here today with complaints of having a dry cough that she has had for over a month. Her daughter states she coughs all the time but mainly at night. She has been taking otc medication and its not helping her. Encounter Diagnosis: Memory deficits (780.93), HTN (hypertens ion) (401.9), Dyslipidemia, DM (diabetes mellitus), type 2 (250.00), Low back pain radiating to left leg, Seasonal allergies, Cough [facility] Annotation/Addendum On: 15-Jun-2013 16:54 Encounter Diagnosis: Inguinal hernia, right End: 16:56 [facility] Office Visit On: 11-Jun-2013 10:06 Encounter Reason: Skin lesion - The skin lesion has been occurring for 3 months. It has been increasing in size. The skin lesion is located on the genital area and the lower extremity. Note for "Skin lesion": Pt is here End: 11-Jun-2013 14:39 today with complaints of having skin les sonam zheng on her leg and one on her private area. She states the one on her private area has been there for about 3 months and states it has been increasing in size and is starting to hurt.Encounter Diagnosis: Inguinal hernia, right, Knee joint cyst [facility] Office Visit On: 01-Jun-2013 11:28 Encounter Reason: Bradycardia - The last clinic visit was 6 day(s) ago. Management changes made at the last visit include stopping discontinued her Labatalol. Symptoms include fatigue, weakness and altered mental status, End: 01-Jun-2013 12:15 while symptoms do not include chest baylee n, lightheadedness, shortness of breath, syncope or palpitations. Onset followed none (Pt has been on Labatalol for her b/p and was in for pre-op physical and her EKG was showing an A/V block and heart rate at 48. We d/c' ed her Labatalol and rescheduled her to [facility] for repeat EKG today. These EKG's have been sent to her medical receptionist and we are awaiting h is review.). The episodes occur daily. T he patient describes this as moderate in severity and improving (heart rate increased after stopping the Labatalol but she still has an A/V block and we are await ing the medical receptionist's review.). Associa jesica symptoms do not include orthopnea, edema, cough, fever, chills, headache, nausea or vomiting.Encounter Diagnosis: Cardiac dysrhythmia, HTN (hypertension) (401.9) [facility] Nurse Visit On: 01-Jun-2013 8:50 Encounter Diagnosis: Irregular cardiac rhythm (427.9) End: 01-Jun-2013 8:55 [facility] Office Visit On: 27-May-2013 8:16 Encounter Reason: surgical clearance - P t is here today for surgical clearance. She will be having retinal surgery on her right eye. Pt has had a cough but her daughter started using Robitussin DM last night and stated End: 01-Jun-2013 15:52 that it helped her out a lot. She has n o other problems today. Her daughter reports her blood sugar this am was 148.Encounter Diagnosis: Preoperative clearance, Bradycardia [facility] Med Refill On: 26-May-2013 10:30 Encounter Diagnosis: Seasonal allergies End: 26-May-20 13 10:33 [facility] Office Visit On: 22-Apr-2013 14:59 Encounter Reason: Leg pain - The leg baylee n began suddenly (Onset this week and denies any known mechanism of injury.Sitting aggrevates the pain and the pain radiates down across the left hip to the left lateral thigh. T End: 22-Apr-2013 16:07 here is positive leg raise on the left.) and has been occurring for 3 days. The symptoms have been occurring in an increasing pattern. The symptoms are described as a cramping, dull ache and pain and ar e severe. The symptoms occur at rest a nd when walking. There is involvement of the left lower extremity, buttocks (on left) and left thigh. There are no precipitating factors. There are no relieving f actors. There has been no associated quyen st pain, dizziness, focal neurologic deficits, pallor of extremity, calf swelling, cool extremity, fever or chills. Note for "Leg pain": Pt is here today with com plaints of having left leg pain that is starting at her groin area and coming all the way down her leg. She also has a knot on her knee and don't know how it got there but its very painful to the patien t. Pt states when she walks she feels as if she catches cramps in her leg and about makes her fall down.Encounter Diagnosis: Low back pain radiating to left leg [facility] Med Refill On: 18-Mar-2013 9:34 Encounter Diagnosis: Diabetes type 2, un controlled (250.02), Elevated hemoglobin A1c (Renamed from Elevated glycated hemoglobin) End: 18-Mar-2013 9:43 [facility] Office Visit On: 27-Feb-2013 9:06 Encounter Reason: Rash - The rash has be en occurring for 3 weeks. The course has been increasing. The rash is characterized as red and raised above the skin. The rash was first seen on exposed areas (both arms). It sprea End: 27-Feb-2013 10:08 d to the neck. There has been associated itching, while there has been no chills or fever. Note for "Rash": Pt is here today with complaints of having a rash that started on her arms about 3 weeks ago. Her daughter started putting cream on it and it's not getting any better. Its located on both arms, around her neck area, and located on both areas. Pt states it itches really bad. Daughter gave her kristin e Benadryl and this did help some with t he itching. , Diabetes Type II, Follow UpEncounter Diagnosis: Rash and nonspecific skin eruption (782.1), DM (diabetes mellitus), type 2 (250.00), Dyslipidemia, HTN (hypertension) (401.9) [facility] Med Refill On: 13-Feb-2013 10:55 Encounter Diagnosis: DM (diabetes mellit us), type 2 (250.00), Memory deficits (780.93), HTN (hypertension) (401.9), Dyslipidemia (272.4) End: 13-Feb-2013 10:58 [facility] Office Visit On: 08-Dec-2012 10:28 Encounter Reason: Diabetes Type II, Foll ow Up - The last clinic visit was 1 month(s) ago. Management changes made at the last visit include ordering ordered labs but hasn't had them done . The patient has had hypoglycemi End: 08-Dec-2012 11:32 a symptoms most recently on 0 (Denies an y low blood sugars). By report there is fair compliance with treatment (pt occassionally misses her meds due to poor memory but her daughter tries to check on her daily and keep her on tract as much as she can, she reports her mother has moved back home and is not staying with her at present.) and fair symptom control. Disease complications include peripheral ne uropathy and diabetic retinopathy, while disease complications do not include lower extremity ulceration or poor wound healing. Home glucose testing is done once daily. Most recent lipid testing was don e on 08/02/2012 and the results included t otal cholesterol 176 mg/dl, LDL 90 mg/dl, HDL 74 mg/dl and TG 51 mg/dl (hgba1c was 8.5). Pertinent medical history includes hypertension, dyslipidemia, peripheral vascular disease, stroke and alcoholism (used to drink daily but has quit drinking), while pertinent medical history does not include recurrent skin infections, recurrent candidiasis or pancreatitis. N ote for "Follow up for diabetes type II" : Pt is here today for a follow up. She states she doesn't have any complaints today. Her daughter didn't come to the appt. with her today. , Memory impairment - The onset of the mem ory impairment has been gradual (getting worse over last year, and we started Donezpil last month and we will increase dose to 10 mg this month and cont to monito r sx) and has been occurring in a persis tent pattern for 1 year. The course has been increasing. The memory impairment is characterized as a loss of recent memory. There has been no associated alcoholis m (Used to drink a quart of Schlitz a da y but quit a year or two a day), anxiety, ataxia, chorea, depression, drug addiction, epilepsy, fever, focal neurological deficits, headache, nausea, neck stiffness, tremor or vomiting.Encounter Diagnosis: DM (diabetes mellitus), type 2 (250.00), Memory deficits (780.93), HTN (hypertension) (401.9), Irregular cardiac rhythm (427.9), AV block, 1st degree (426.11) [facility] Office Visit On: 07-Nov-2012 10:57 Encounter Reason: Follow Up - Date: (10/29 Pt is in with c/o of cont memory decline but she did not get the Aricept rx at last visit. She has seen the eye doctor and had some lasar eye surgery for her retinopathy and h End: 07-Nov-2012 12:08 ad a cardiac cath by Dr Vazquez. She denie s any chest discomfort.). Current symptoms include other. Note for " discuss consultation": pt is here today for a follow up. She states she is staying cold all t he time. Daughter is worried about her f orgetting things all the time now. She states she cant remember things two minutes apart at times. Pt has no complaints today., Diabetes Type II, Follow Up - The last c linic visit was 3 month(s) ago. The patient has had hypoglycemia symptoms most recently on denies any low sugar events. Most recent lipid testing was done on and the results included total choles terol 174 mg/dl, LDL 90 mg/dl, HDL 74 mg/dl and TG 51 mg/dl (A1C 7.0). Home blood pressure is measured once daily. Pertinent medical history includes hypertension , dyslipidemia and coronary artery disea se. Past evaluation has included fasting glucose, hemoglobin A1c, fasting lipid profile, renal function testing, urine microalbumin, dilated eye examination, ECG, echocardiogram and nuclear cardiac imag ing (and cardiac cath in Jul). Past treatment has included basal insulin, bolus insulin, oral agents, dyslipidemia medications, antihypertensives, daily aspirin, EDDIE inhibitor and diabetic foot care. Encounter Diagnosis: HTN (hypertension) (401.9), DM (diabetes mellitus), type 2 (250.00), Dyslipidemia (272.4), Mild cognitive impairment with memory loss (Renamed from Amnestic MCI (mild cognitive impairment with memory loss)), Irregular cardiac rhythm (427.9) [facility] Office Visit On: 01-Aug-2012 8:49 Encounter Reason: Follow Up - Follow up visit with no current symptoms. Note for " discuss consultation": Pt is here today for a follow up. She has no complaints. She has recently been to her medical receptionist and is followin End: 01-Aug-2012 10:15 g up from that. She states none of her m edicatins have changed. Her blood pressure is still running high., Type II diabetes mellitus - The patient feels well with minor complaints (has dry cough and sx's of a llergies with PNDrip and runny nose and watery eyes), has decreased energy level and is sleeping poorly. The onset of the ii diabetes mellitus has been gradual and has been occurring in an increasing pa ttern for months. The course has been gr adually worsening. The ii diabetes mellitus is described as moderate. The patient has had visual disturbances. The course of symptoms is an increasing (she is hav ing progressive memory loss). The curren t treatment regimen includes daily aspirin, a diabetic diet, home blood glucose monitoring, insulin and oral hypoglycemic medication. The patient is compliant wit h the treatment regimen. Impact of disea se: emotional impact-mild.Encounter Diagnosis: DM (diabetes mellitus), type 2 (250.00), Irregular cardiac rhythm (427.9), Dyslipidemia (272.4), HTN (hypertension) (401.9), Memory deficits (780.93) [facility] Office Visit On: 08-Apr-2012 14:53 Encounter Reason: follow up - Pt is here today for a follow up. Daughter sent a letter stating that her mom's memory is getting worse. She was wanting to know about some patches if there is some. She is also having probl End: 08-Apr-2012 18:03 ems with her eyesight getting worse. The re is no other problems noted.Encounter Diagnosis: Memory deficits (780.93), Mild cognitive impairment with memory loss (331.83) [facility] Office Visit On: 19-Mar-2012 9:35 Encounter Reason: follow up - Pt is here today for a follow up. Daughter is c/o about pt talking crazy stuff and cant remember things. She just recently had eye surgery. She will have the other one done tomorrow. Daugh End: 19-Mar-2012 11:54 ter wants to talk with you about her med ications today. Pts blood sugar in the office today was 152 not fasting.Encounter Diagnosis: DM (diabetes mellitus), type 2 (250.00), Dyslipidemia (272.4), HTN (hypertension) (401.9), Irregular cardiac rhythm (427.9) [facility] Office Visit On: 23-Oct-2011 14:52 Encounter Reason: High blood pressure - Note for "High blood pressure": CHECK UP ON BLOOD PRESSUREEncounter Diagnosis: Unspecified Diagnosis, HTN (hypertension) (401.9), Irregular cardiac rhythm (427.9), DM (diabetes mellitus), type 2 (250.00) End: 23-Oct-2011 16:13 [facility] Historical Summary On: 22-Oct-2011 16:46 [facility] End: 22-Oct-2011 16 :57 Payers MedicareMedicaidParaj Majano; arthur guarantor
== END 2021-06-01 19:25 | DRG 948 ==
LOC: ER 10:27 → MED/SURG 13:18
PROVIDERS: ADMIT Family Medicine; ATTEND Family Medicine
DX: R53.1 Weakness; N18.32 Chronic kidney disease, stage 3b; J44.9 Chronic obstructive pulmonary disease, unspecified; Z20.822 Contact with and (suspected) exposure to COVID-19; R26.89 Other abnormalities of gait and mobility; E11.65 Type 2 diabetes mellitus with hyperglycemia; E87.5 Hyperkalemia; E86.0 Dehydration; R41.82 Altered mental status, unspecified; Z86.73 Personal history of transient ischemic attack (TIA), and cerebral infarction without residual deficits; E87.0 Hyperosmolality and hypernatremia; E86.9 Volume depletion, unspecified